=== PATIENT | male | born 1965 | race Caucasian/White ===

== ENCOUNTER 2020-12-15 16:42 | Emergency (ER) | payer OTHER ==
[2020-12-15 17:19] VITALS: TEMP 98.4
--- NOTE | 2020-12-15 18:19 | ED ---
SOB HPI - General Chief Complaint: Shortness of Breath Stated Complaint: SOB/body aches Time Seen by Provider: 12/15/20 17:49 Source: patient, RN notes reviewed Mode of arrival: ambulatory Limitations: no limitations - History of Present Illness Initial Comments: Patient is a 55-year-old male with history of heart failure, COPD, hypertension, cardiomyopathy, presenting to emergency Department with complaints of shortness of breath, chills and body aches that started 5 days ago. He states he was feeling better over the last couple days but then went back to work today and the chills and shortness of breath started back up about 3 PM so he finally came in for evaluation. About 6 weeks ago, he was hospitalized in [place] for RSV, diagnosed with mild COPD. He was in every day smoker for the past 40 years, quit in September. He was started on inhalers and when necessary nebulizer treatment secondary to the diagnosis of COPD. She recently received his pneumonia and influenza vaccines, he has been vaccinated against Covid as well. He denies any abdominal pain, no nausea or vomiting, no diarrhea. He states his appetite has been on the lower side. He denies any chest pain. Patient has no further complaints at this time. Upon arrival to the ER, his vitals are stable. - Related Data Previous Rx's Medication Instructions Recorded Azithromycin [Zithromax Z-pack (6 0 mg PO DIRECTED #6 tab 12/15/20 tabs)] predniSONE [Deltasone] 20 mg PO DAILY 5 Days #5 tab 12/15/20 Allergies Allergy/AdvReac Type Severity Reaction Status Date / Time acetaminophen [From Percocet] Allergy Unknown Verified 12/15/20 17:20 azithromycin Allergy Unknown Verified 12/15/20 17:20 erythromycin base Allergy Unknown Verified 12/15/20 17:20 oxycodone [From Percocet] Allergy Unknown Verified 12/15/20 17:20 Review of Systems ROS Statement: Those systems with pertinent positive or pertinent negative responses have been documented in the HPI. ROS Other: All systems not noted in ROS Statement are negative. Past Medical History Past Medical History: Heart Failure, COPD, Hyperlipidemia, Hypertension Additional Past Medical History / Comment(s): cardiomyopathy History of Any Multi-Drug Resistant Organisms: None Reported Past Surgical History: No Surgical Hx Reported Past Psychological History: Depression Smoking Status: Former smoker Past Alcohol Use History: Daily Past Drug Use History: None Reported General Exam - General Exam Comments Initial Comments: GENERAL: Patient is well-developed and well-nourished. Patient is nontoxic and in no acute distress. HEAD: Atraumatic, normocephalic. EYES: Pupils equal round and reactive to light, extraocular movements intact, sclera anicteric, conjunctiva are normal. Eyelids were unremarkable. ENT: TMs normal, nares patent, oropharynx clear without exudates. Moist mucous membranes. NECK: Normal range of motion, supple without lymphadenopathy or JVD. LUNGS: Unlabored respirations at rest, mildly labored with exam and questioning.. Breath sounds clear to auscultation bilaterally and equal. No wheezes rales or rhonchi. HEART: Regular rate and rhythm without murmurs, rubs or gallops. ABDOMEN: Soft, nontender, normoactive bowel sounds. No guarding, no rebound. No masses appreciated. : Deferred MUSCULOSKELETAL: Normal extremities with adequate strength and normal range of motion, no pitting or edema. No clubbing or cyanosis. NEUROLOGICAL: Patient is alert and oriented x 3. Motor and sensory are also intact. Cranial nerves II through XII grossly intact. Symmetrical smile. Normal speech, normal gait. PSYCH: Normal mood, normal affect. SKIN: Warm, Dry, normal turgor, no rashes or lesions noted. Limitations: no limitations Course Vital Signs 12/15/20 12/15/20 12/15/20 17:12 18:33 19:52 Temperature 98.4 F Pulse Rate 81 79 83 Respiratory 24 18 18 Rate Blood Pressure 133/79 145/92 O2 Sat by Pulse 100 97 98 Oximetry Medical Decision Making - Medical Decision Making Patient is a 55-year-old gentleman with history of COPD, heart failure, cardiomyopathy presenting with shortness of breath, body aches and chills over the past few days. His vitals are stable here, no chest pain today. His EKG shows a normal sinus rhythm with hypertrophy. Labs are stable including a nor mal white count, stable hemoglobin, troponin is negative, BNP is 99, kidney function is 1.37, swabs are all negative for influenza, RSV, covid. Chest XR is normal. These findings with the patient. This is most likely viral in nature. I will give him a course of steroids, also given a Z-Manolo as symptoms persist, worsening fever, he can start the antibiotics. He is agreeable as planned care. He will follow up with his primary care. Return parameters were discussed with him and he verbalized understanding. Case discussed with Dr. Conner. - Lab Data Result diagrams: 12/15/20 18:12 12/15/20 18:12 Lab Results 12/15/20 12/15/20 12/15/20 Range/Units 18:12 18:12 18:12 WBC 11.4 H (3.8-10.6) k/uL RBC 4.06 L (4.30-5.90) m/uL Hgb 13.0 (13.0-17.5) gm/dL Hct 39.2 (39.0-53.0) % MCV 96.7 (80.0-100.0) fL MCH 32.0 (25.0-35.0) pg MCHC 33.1 (31.0-37.0) g/dL RDW 12.1 (11.5-15.5) % Plt Count 274 (150-450) k/uL MPV 8.7 PT 10.2 (9.0-12.0) sec INR 0.9 (<1.2) APTT 25.7 (22.0-30.0) sec Sodium 137 (137-145) mmol/L Potassium 4.4 (3.5-5.1) mmol/L Chloride 104 (98-107) mmol/L Carbon Dioxide 21 L (22-30) mmol/L Anion Gap 12 mmol/L BUN 20 (9-20) mg/dL Creatinine 1.37 H (0.66-1.25) mg/dL Est GFR (CKD-EPI)AfAm 67 (>60 ml/min/1.73 sqM) Est GFR (CKD-EPI)NonAf 58 (>60 ml/min/1.73 sqM) Glucose 98 (74-99) mg/dL Calcium 10.0 (8.4-10.2) mg/dL Total Bilirubin 0.9 (0.2-1.3) mg/dL AST 36 (17-59) U/L ALT 30 (4-49) U/L Alkaline Phosphatase 79 (38-126) U/L Troponin I (0.000-0.034) ng/mL NT-Pro-B Natriuret Pep pg/mL Total Protein 7.5 (6.3-8.2) g/dL Albumin 4.3 (3.5-5.0) g/dL Influenza Type A (PCR) (Not Detectd) Influenza Type B (PCR) (Not Detectd) RSV (PCR) (Not Detectd) SARS-CoV-2 (PCR) (Not Detectd) 12/15/20 12/15/20 12/15/20 Range/Units 18:12 18:12 18:12 WBC (3.8-10.6) k/uL RBC (4.30-5.90) m/uL Hgb (13.0-17.5) gm/dL Hct (39.0-53.0) % MCV (80.0-100.0) fL MCH (25.0-35.0) pg MCHC (31.0-37.0) g/dL RDW (11.5-15.5) % Plt Count (150-450) k/uL MPV PT (9.0-12.0) sec INR (<1.2) APTT (22.0-30.0) sec Sodium (137-145) mmol/L Potassium (3.5-5.1) mmol/L Chloride (98-107) mmol/L Carbon Dioxide (22-30) mmol/L Anion Gap mmol/L BUN (9-20) mg/dL Creatinine (0.66-1.25) mg/dL Est GFR (CKD-EPI)AfAm (>60 ml/min/1.73 sqM) Est GFR (CKD-EPI)NonAf (>60 ml/min/1.73 sqM) Glucose (74-99) mg/dL Calcium (8.4-10.2) mg/dL Total Bilirubin (0.2-1.3) mg/dL AST (17-59) U/L ALT (4-49) U/L Alkaline Phosphatase (38-126) U/L Troponin I <0.012 (0.000-0.034) ng/mL NT-Pro-B Natriuret Pep 99 pg/mL Total Protein (6.3-8.2) g/dL Albumin (3.5-5.0) g/dL Influenza Type A (PCR) Not Detected (Not Detectd) Influenza Type B (PCR) Not Detected (Not Detectd) RSV (PCR) Not Detected (Not Detectd) SARS-CoV-2 (PCR) Not Detected (Not Detectd) - EKG Data EKG Comments: Normal sinus rhythm, left ventricular hypertrophy with repolarization abnormality, no signs of acute ST segment elevation. Ventricular rate 76, TX interval 170, QT 372. No previous to compare to. Disposition Clinical Impression: Viral respiratory illness Disposition: HOME SELF-CARE Condition: Stable Instructions (If sedation given, give patient instructions): Viral Syndrome (ED) Additional Instructions: Please return to the Emergency Department if symptoms worsen or any other c oncerns. Take steroids/antibiotics as prescribed. Use inhalers and nebulizers as already prescribed. Increase your fluid intake. Please follow-up with your primary care physician. Prescriptions: predniSONE [Deltasone] 20 mg PO DAILY 5 Days #5 tab Azithromycin [Zithromax Z-pack (6 tabs)] 0 mg PO DIRECTED #6 tab Is patient prescribed a controlled substance at d/c from ED?: No Referrals: Nonstaff,Physician [Primary Care Provider] - 1-2 days Time of Disposition: 19:06
[2020-12-15 18:20] LABS: HCT 39.2 % (39.0-53.0); MCHC 33.1 g/dL (31.0-37.0); MCV 96.7 fL (80.0-100.0); Mean Platelet Volume 8.7; Platelet Count 274 k/uL (150-450); RBC 4.06 m/uL (4.30-5.90); RDW 12.1 % (11.5-15.5); WBC 11.4 k/uL (3.8-10.6)
--- NOTE | 2020-12-15 18:27 | XR ---
EXAMINATION TYPE: XR chest 2V DATE OF EXAM: 12/15/2020 COMPARISON: NONE HISTORY: Short of breath TECHNIQUE: 2 views FINDINGS: Heart and mediastinum are normal. Lungs are clear. Diaphragm is normal. Bony thorax appears normal. IMPRESSION: Normal chest.
[2020-12-15 18:28] LABS: Albumin 4.3 g/dL (3.5-5.0); Potassium 4.4 mmol/L (3.5-5.1); Total Bilirubin 0.9 mg/dL (0.2-1.3); Total Protein 7.5 g/dL (6.3-8.2)
[2020-12-15 18:32] LABS: INR 0.9 (<1.2); Partial Thromboplastin Time 25.7 sec (22.0-30.0); Prothrombin Time 10.2 sec (9.0-12.0)
[2020-12-15 18:34] VITALS: RESP 18
[2020-12-15] MEDS ORDERED: SODIUM CHLORIDE 0.9% 500 ML 500 ML IV STA (18:57)
[2020-12-15 19:54] VITALS: BP 145/92; PULSE 83
== END 2020-12-15 19:54 | disposition home or self-care (01) ==
LOC: EC 16:42
DX: B34.9 Viral infection, unspecified (principal); I11.0 Hypertensive heart disease with heart failure; I50.9 Heart failure, unspecified; J44.9 Chronic obstructive pulmonary disease, unspecified; E78.5 Hyperlipidemia, unspecified; I42.9 Cardiomyopathy, unspecified; F32.9 Major depressive disorder, single episode, unspecified; Z88.1 Allergy status to other antibiotic agents; Z88.5 Allergy status to narcotic agent; Z87.891 Personal history of nicotine dependence; Z20.822 Contact with and (suspected) exposure to COVID-19
CPT/HCPCS: 36415; 71046; 80053; 83880; 84484; 85027; 85610; 85730; 87636; 93005; 99285

== ENCOUNTER 2020-12-21 08:08 | Inpatient (IN) | payer OTHER ==
[2020-12-21] MEDS ORDERED: ASPIRIN 81 MG PO STA (08:21)
[2020-12-21] MEDS ORDERED: NITROGLYCERIN OINT 1 INCH/GM PACKET TOPICAL STA (08:21)
[2020-12-21] MEDS ORDERED: NITROGLYCERIN SL TABS 0.4 MG TAB SUBLINGUAL STA (08:21)
[2020-12-21] MEDS ORDERED: SODIUM CHLORIDE 0.9% 500 ML 500 ML IV STA (08:21)
[2020-12-21] MEDS ORDERED: MORPHINE SULFATE 2 MG/ML SYRINGE IVP STA (08:21)
[2020-12-21] MEDS ORDERED: NITROGLYCERIN SL TABS 0.4 MG TAB SUBLINGUAL PRN (08:24)
[2020-12-21] MEDS ORDERED: LORazepam 2 MG/ML INJ IV STA (08:25)
--- NOTE | 2020-12-21 08:28 | ED ---
General Adult HPI - General Chief complaint: Chest Pain Stated complaint: chest pain Time Seen by Provider: 12/21/20 08:15 Source: patient, RN notes reviewed, old records reviewed Mode of arrival: wheelchair Limitations: no limitations - History of Present Illness Initial comments: This is a 55-year-old male who presents emergency pertinent past medical history significant for cardiomyopathy hypertension high cholesterol and recently quit smoking. Patient comes in stating 5 AM this morning he was having severe left- sided chest pain. Patient denies any radiation. Patient states he is somewhat short of breath per patient denies any diaphoretic episodes. Patient states the pain never goes away but it does get worse and get better. Patient denies any nausea. Patient denies abdominal pain patient denies any vomiting. Patient denies any recent fevers or chills per patient states he does have an upper respiratory infection recently and he was seen in emergency department. Patient states she was negative for COVID. - Related Data Home Medications Medication Instructions Recorded Confirmed Albuterol Inhaler [Ventolin Hfa 2 puff INHALATION RT-Q4H PRN 12/21/20 12/21/20 Inhaler] Atorvastatin [Lipitor] 80 mg PO DAILY 12/21/20 12/21/20 Budesonide/Formoterol Fumarate 2 puff INHALATION RT-BID 12/21/20 12/21/20 [Symbicort 160-4.5 Mcg Inhaler] Carvedilol [Coreg] 25 mg PO BID 12/21/20 12/21/20 Furosemide [Lasix] 20 mg PO DAILY 12/21/20 12/21/20 Ibuprofen [Motrin] 800 mg PO AC-TID 12/21/20 12/21/20 Ipratropium-Albuterol Nebulize 1.5 ml INHALATION RT-QID 12/21/20 12/21/20 [Duoneb 0.5 mg-3 mg/3 ml Soln] Valsartan [Diovan] 80 mg PO DAILY 12/21/20 12/21/20 buPROPion SR [Wellbutrin SR] 150 mg PO BID 12/21/20 12/21/20 Allergies Allergy/AdvReac Type Severity Reaction Status Date / Time acetaminophen [From Percocet] Allergy Unknown Verified 12/21/20 08:42 azithromycin Allergy Unknown Verified 12/21/20 08:42 erythromycin base Allergy Unknown Verified 12/21/20 08:42 oxycodone [From Percocet] Allergy Unknown Verified 12/21/20 08:42 Review of Systems ROS Statement: Those systems with pertinent positive or pertinent negative responses have been documented in the HPI. ROS Other: All systems not noted in ROS Statement are negative. Past Medical History Past Medical History: Heart Failure, COPD, Hyperlipidemia, Hypertension Additional Past Medical History / Comment(s): cardiomyopathy History of Any Multi-Drug Resistant Organisms: None Reported Past Surgical History: No Surgical Hx Reported Past Psychological History: Depression Smoking Status: Former smoker Past Alcohol Use History: Daily Past Drug Use History: None Reported General Exam - General Exam Comments Initial Comments: GENERAL: Patient is well-developed and well-nourished. Patient is nontoxic and well- hydrated and is in moderate distress. ENT: Neck is soft and supple. No significant lymphadenopathy is noted. Oropharynx is clear. Moist mucous membranes. Neck has full range of motion without eliciting any pain. EYES: The sclera were anicteric and conjunctiva were pink and moist. Extraocular movements were intact and pupils were equal round and reactive to light. Eyelids were unremarkable. PULMONARY: Unlabored respirations. Good breath sounds bilaterally. No audible rales rhonchi or wheezing was noted. CARDIOVASCULAR: There is a regular rate and rhythm without any murmurs gallops or rubs. ABDOMEN: Soft and nontender with normal bowel sounds. SKIN: Skin is clear with no lesions or rashes and otherwise unremarkable. NEUROLOGIC: Patient is alert and oriented x3. Cranial nerves II through XII are grossly intact. Motor and sensory are also intact. Normal speech, volume and content. Symmetrical smile. MUSCULOSKELETAL: Normal extremities with adequate strength and full range of motion. No lower extremity swelling or edema. No calf tenderness. LYMPHATICS: No significant lymphadenopathy is noted PSYCHIATRIC: Normal psychiatric evaluation. Limitations: no limitations Course Vital Signs 12/21/20 12/21/20 12/21/20 08:14 08:55 08:57 Temperature 98.0 F Pulse Rate 74 83 95 Respiratory 18 20 20 Rate Blood Pressure 135/84 143/84 143/79 O2 Sat by Pulse 95 95 95 Oximetry 12/21/20 09:10 Temperature Pulse Rate 79 Respiratory 20 Rate Blood Pressure 106/72 O2 Sat by Pulse 95 Oximetry Medical Decision Making - Medical Decision Making EKG shows normal sinus rhythm at 73 bpm [place] interval 160 QRS is under QT interval 370 QTC is 416. Patient's EKG shows some ST segment elevation in the anterior leads V1 and V2 and V3. Patient has T-wave abnormalities in the precordial leads V4 V5 and V6 as well as inferior leads which were also seen on previous EKG. A STEMI overhead was called. Patient received 1 mg of Ativan and nitroglycerin and aspirin immediately upon arrival in the emergency department. I called a STEMI overhead and I spoke with Dr. Brownlee he will come down and see the patient emergency department. New. Chest shows no acute abnormality. Dr. Brownlee came down and saw the patient and we agreed that the patient probably needed to get a CT of his aorta to rule out dissection. CT was done and showed no dissection. CT did show possibility of a pulmonary abscess in the right lower lung. Patient was taken to the [facility] immediately until this time there was no heparin given secondary to the fact that we had to rule out dissection. I spoke with [facility] hospitalist accept the patient admitted the patient to [facility]. I consult pulmonary and I started the patient on antibiotics. - Lab Data Result diagrams: 12/21/20 08:27 12/21/20 08:27 Lab Results 12/21/20 12/21/20 12/21/20 Range/Units 08:27 08:27 08:27 WBC 14.7 H (3.8-10.6) k/uL RBC 3.88 L (4.30-5.90) m/uL Hgb 12.1 L (13.0-17.5) gm/dL Hct 38.5 L (39.0-53.0) % MCV 99.2 (80.0-100.0) fL MCH 31.1 (25.0-35.0) pg MCHC 31.4 (31.0-37.0) g/dL RDW 12.5 (11.5-15.5) % Plt Count 380 (150-450) k/uL MPV 7.8 Neutrophils % 85 % Lymphocytes % 10 % Monocytes % 3 % Eosinophils % 1 % Basophils % 0 % Neutrophils # 12.5 H (1.3-7.7) k/uL Lymphocytes # 1.5 (1.0-4.8) k/uL Monocytes # 0.4 (0-1.0) k/uL Eosinophils # 0.2 (0-0.7) k/uL Basophils # 0.0 (0-0.2) k/uL Sodium 142 (137-145) mmol/L Potassium 4.0 (3.5-5.1) mmol/L Chloride 102 (98-107) mmol/L Carbon Dioxide 29 (22-30) mmol/L Anion Gap 11 mmol/L BUN 21 H (9-20) mg/dL Creatinine 1.32 H (0.66-1.25) mg/dL Est GFR (CKD-EPI)AfAm 71 (>60 ml/min/1.73 sqM) Est GFR (CKD-EPI)NonAf 61 (>60 ml/min/1.73 sqM) Glucose 134 H (74-99) mg/dL Calcium 9.7 (8.4-10.2) mg/dL Magnesium 2.0 (1.6-2.3) mg/dL Total Bilirubin 0.8 (0.2-1.3) mg/dL AST 181 H (17-59) U/L ALT 225 H (4-49) U/L Alkaline Phosphatase 87 (38-126) U/L Troponin I <0.012 (0.000-0.034) ng/mL NT-Pro-B Natriuret Pep pg/mL Total Protein 6.6 (6.3-8.2) g/dL Albumin 3.4 L (3.5-5.0) g/dL 12/21/20 Range/Units 08:27 WBC (3.8-10.6) k/uL RBC (4.30-5.90) m/uL Hgb (13.0-17.5) gm/dL Hct (39.0-53.0) % MCV (80.0-100.0) fL MCH (25.0-35.0) pg MCHC (31.0-37.0) g/dL RDW (11.5-15.5) % Plt Count (150-450) k/uL MPV Neutrophils % % Lymphocytes % % Monocytes % % Eosinophils % % Basophils % % Neutrophils # (1.3-7.7) k/uL Lymphocytes # (1.0-4.8) k/uL Monocytes # (0-1.0) k/uL Eosinophils # (0-0.7) k/uL Basophils # (0-0.2) k/uL Sodium (137-145) mmol/L Potassium (3.5-5.1) mmol/L Chloride (98-107) mmol/L Carbon Dioxide (22-30) mmol/L Anion Gap mmol/L BUN (9-20) mg/dL Creatinine (0.66-1.25) mg/dL Est GFR (CKD-EPI)AfAm (>60 ml/min/1.73 sqM) Est GFR (CKD-EPI)NonAf (>60 ml/min/1.73 sqM) Glucose (74-99) mg/dL Calcium (8.4-10.2) mg/dL Magnesium (1.6-2.3) mg/dL Total Bilirubin (0.2-1.3) mg/dL AST (17-59) U/L ALT (4-49) U/L Alkaline Phosphatase (38-126) U/L Troponin I (0.000-0.034) ng/mL NT-Pro-B Natriuret Pep 475 pg/mL Total Protein (6.3-8.2) g/dL Albumin (3.5-5.0) g/dL Critical Care Time Critical Care Time: Yes Total Critical Care Time: 40 Disposition Clinical Impression: ST elevation myocardial infarction (STEMI), Pulmonary abscess Disposition: ADMITTED IP TO THIS [facility] Time of Disposition: 09:26
[2020-12-21 08:35] LABS: Basophils % (A) 0 %; Eosinophils # (A) 0.2 k/uL (0-0.7); Eosinophils % (A) 1 %; HCT 38.5 % (39.0-53.0); HGB 12.1 gm/dL (13.0-17.5); Lymphocytes # (A) 1.5 k/uL (1.0-4.8); Lymphocytes % (A) 10 %; MCH 31.1 pg (25.0-35.0); MCHC 31.4 g/dL (31.0-37.0); MCV 99.2 fL (80.0-100.0); Mean Platelet Volume 7.8; Monocytes # (A) 0.4 k/uL (0-1.0); Monocytes % (A) 3 %; Neutrophils # (A) 12.5 k/uL (1.3-7.7); Neutrophils % (A) 85 %; Platelet Count 380 k/uL (150-450); RBC 3.88 m/uL (4.30-5.90); RDW 12.5 % (11.5-15.5); WBC 14.7 k/uL (3.8-10.6)
--- NOTE | 2020-12-21 08:35 | XR ---
EXAMINATION TYPE: XR chest 1V DATE OF EXAM: 12/21/2020 COMPARISON: Chest x-ray December 15, 2020 HISTORY: Chest pain. TECHNIQUE: Single AP portable frontal upright view of the chest is obtained. FINDINGS: There is no focal air space opacity, pleural effusion, or pneumothorax seen. The cardiac silhouette size is mildly enlarged currently. New Mild central interstitial edema. The osseous structures are intact. IMPRESSION: New Mild cardiomegaly with mild central vascular congestion.
[2020-12-21 08:54] LABS: Albumin 3.4 g/dL (3.5-5.0); Calcium 9.7 mg/dL (8.4-10.2); Total Bilirubin 0.8 mg/dL (0.2-1.3); Total Protein 6.6 g/dL (6.3-8.2)
[2020-12-21 08:55] LABS: Partial Thromboplastin Time 22.6 sec (22.0-30.0)
[2020-12-21] MEDS ORDERED: LIDOCAINE 1% INJ 10MG/ML (20 ML MDV) ONE ×2 (09:03→09:50)
[2020-12-21] MEDS ORDERED: VERAPAMIL 2.5 MG/ML 2 ML AMP ONE (09:03)
--- NOTE | 2020-12-21 09:24 | CT ---
EXAMINATION TYPE: CT angio thor/abd pel aorta DATE OF EXAM: 12/21/2020 COMPARISON: None. HISTORY: Chest pain rule out dissection CT DLP: 1207 mGycm. Automated Exposure Control for Dose Reduction was Utilized. CONTRAST: CTA scan of the thorax, abdomen and pelvis is performed without and with IV Contrast, patient injecte d with 100 ml mL of Isovue 370. Three-D reconstructed images created on a independent workstation and reviewed. FINDINGS: VASCULAR: Satisfactory enhancement of the central pulmonary arteries. Aneurysm at the aortic root up to 4.0 cm coronal image 48. Ascending aortic aneurysm up to 4.1 cm axial image 37. Three-vessel origi n from aortic arch. No significant plaque or stenosis. Patent celiac artery and SMA along with single bilateral renal arteries. Patent NATACHA. No significant plaque or stenosis. Patent iliac and femoral br anches bilaterally without significant plaque or stenosis. No AAA. No linear hypodensity to suggest d issection. LUNGS: Tiny left pleural effusion. There is small right pleural effusion. In the medial right lower l obe there is lesion with central low density or fluid and foci of air that has surrounding hyperdensi ty suspect thick-walled measuring 6.3 x 3.3 cm suspicious for intrapulmonary abscess MEDIASTINUM: There are prominent reactive right hilar lymph node and subcarinal lymph node. For refer ences 2.6 x 1.1 cm subcarinal lymph node axial image 39. Small pericardial effusion is seen anterior inferior aspect axial image 66. Cardiomegaly is present. Mild to moderate concentric left ventricula r hypertrophy. Moderate right greater than left biatrial dilatation. Question some focal narrowing at RCA origin axial image 44 corresponding to sagittal image 76. OTHER: Symmetric skin thickening in the bilateral axilla with prominent but anomaly subcentimeter nohelia ateral axillary lymph nodes. There is however slightly enlarged 1.5 x 1.2 cm right axillary lymph nod e axial image 16 noted LIVER/GB: No significant abnormality is appreciated. PANCREAS: No significant abnormality is seen. SPLEEN: No significant abnormality is seen. ADRENALS: No significant abnormality is seen. KIDNEYS: No significant abnormality is seen. BOWEL: Appendix within normal limits from base of cecum. GENITAL ORGANS: Enlarged prostate consistent with BPH. LYMPH NODES: No greater than 1cm abdominal or pelvic lymph nodes are appreciated. OSSEOUS STRUCTURES: Spine is straightened with mild to moderate multilevel spurring. OTHER: Moderate to large-sized inguinal hernias bilaterally, left contains fat, and right contains so me mesenteric vessels and inferiorly there is small fluid collection. There are small left greater th an right bilateral scrotal fluid collection or hydrocele seen inferior to this. IMPRESSION: 1. No thoracic aortic dissection. Ascending aortic aneurysm up to 4.1 cm. No suspicious ill-defined m ediastinal fluid to suggest aneurysm rupture or leak. 2. Cardiomegaly with small to tiny right greater than left pleural effusions. Correlate for CHF exace rbation. 3. There appears to be focal stenosis at origin of right coronary artery. Consider direct catheter an giogram to further evaluate. 4. There is 6.3 cm lesion in the medial right lower lobe, suspected pulmonary abscess. Correlate clin ically. 5. Abnormality in the bilateral axilla as detailed above, correlate clinically. Does patient have yasemin e underlying dermatologic process or syndrome.
[2020-12-21] MEDS ORDERED: PIPERACILLIN-TAZOBACTAM 3.375 GM in SODIUM CHLORIDE 0.9% 100 ML IVPB STA (09:33)
[2020-12-21] MEDS ORDERED: VANCOMYCIN IV PER PHARMACY 1 EACH MISC MISCELLANE PRN (09:34)
[2020-12-21] MEDS: MIDAZOLAM 2 MG/2 ML VIAL IVP ONE ×2 (09:38→09:57)
[2020-12-21] MEDS ORDERED: IV FLUID CONTINUATION 1,000 ML IV ONE (09:39)
[2020-12-21] MEDS ORDERED: SODIUM CHLORIDE 0.9% 1,000 ML IV ONE (09:39)
[2020-12-21] MEDS ORDERED: LIDOCAINE 1% INJ 10MG/ML (20 ML MDV) SQ ONE (09:39)
[2020-12-21] MEDS: VERAPAMIL SYRINGE (5 MG/10 ML) INTRAARTER ONE ×2 (09:54→10:11)
[2020-12-21] MEDS ORDERED: HEPARIN SODIUM 1,000 UN/ML (10ML VL) ONE (09:54)
[2020-12-21] MEDS ORDERED: HEPARIN SODIUM 1,000 UN/ML (10ML VL) IV ONE ×3 (09:57→17:07)
[2020-12-21] MEDS ORDERED: IOPAMIDOL-370 100ML BTL INJ ONE (10:10)
[2020-12-21] MEDS ORDERED: RX INFO: IV CONTRAST WAS GIVEN 1 EACH MISC MISCELLANE PRN (10:21)
[2020-12-21] MEDS ORDERED: ALBUTEROL HFA INHALER INHALATION PRN (10:24)
[2020-12-21] MEDS ORDERED: SODIUM CHLORIDE 0.9% 1,000 ML IV SCH (10:30)
[2020-12-21] MEDS: VANCOMYCIN 1,500 MG in SODIUM CHLORIDE 0.9% 250 ML IVPB SCH ×2 (11:43→21:53)
[2020-12-21] MEDS: MORPHINE SULFATE 2 MG/ML SYRINGE IVP PRN ×3 (11:43→20:37)
--- NOTE | 2020-12-21 11:44 | P.CNPUL ---
History of Present Illness Consult date: 12/21/20 Reason for consult: dyspnea, abnormal CXR/CT History of present illness: 55-year-old male patient is presenting today with extensive right-sided chest wall pain radiating to his back which has some pleuritic in nature. The patient's had a voltage criteria of LVH on his EKG. He was taken to catheterization and the cardiac catheterization do not to be within normal limits. A CT angiogram of the chest and the thoracic aorta was done and the CT angiogram showed the possibility of a right lower lobe lung abscess measuring 6.3 cm in size in addition to a right-sided pleural effusion which was small. The ascending aorta was measuring 4.1 cm in size. The patient has cardiomegaly. Pulmonary consultation was requested accordingly. Currently is on oxygen on 2 L. Is quite uncomfortable and is having pain along his lites side of the chest and he is unable to take a deep breath. White cell count of 14.7. D-dimer is at 2.34. Creatinine is at 1.3. Troponins are negative. ProBNP level is at 475. Noted the patient was in the emergency department on 12/15/2020. At that time he came in with five-day history of shortness of breath and chills and body aches. He was seen by the emergency department staff and a chest x-ray was given at that time on 12/15/2020 of the chest x-ray showed no significant acute abnormality. There was a suspicious right basilar infiltrate. At that point, the patient was given Zithromax and the patient was given a 5 day course of prednisone 20 mg and he was discharged home. Over the past week, the patient continued to be symptomatic and short of breath and he was not bringing up much sputum. No hemoptysis. His condition got worse and for that reason he presented to the hospital. Note that around 2 weeks ago, he was hospitalized in [place] for an RSV infection of the lung and COPD exacerbation. He is a chronic smoker and he has [id number] smoking history and he quit smoking in September 2020. He is known to have COPD. Other comorbid conditions include hypertension, hyperlipidemia, hypertensive cardiomyopathy and previous history of depression. No history of any substance abuse. Review of Systems Constitutional: Reports chills, Reports fatigue, Reports fever, Reports weakness Eyes: denies as per HPI, denies blurred vision, denies bulging eye, denies decreased vision, denies diplopia, denies discharge, denies dry eye, denies irritation, denies itching, denies pain, denies photophobia, denies loss of peripheral vision, denies loss of vision, denies tunnel vision/blind spots Ears: deny: decreased hearing, ear discharge, earache, tinnitus Ears, nose, mouth and throat: Reports as per HPI Breasts: absent: as per HPI, gynecomastia Cardiovascular: Reports chest pain, Reports decreased exercise tolerance, Reports dyspnea on exertion Respiratory: Reports dyspnea Gastrointestinal: Reports as per HPI Genitourinary: Reports as per HPI Musculoskeletal: Reports as per HPI Musculoskeletal: absent: ankle pain, ankle stiffness, ankle swelling, as per HPI, elbow pain, elbow stiffness, elbow swelling, foot pain, foot stiffness, foot swelling, hand pain, hand stiffness, hand swelling, hip pain, hip stiffness, hip swelling, knee pain, knee stiffness, knee swelling, shoulder pain, shoulder stiffness, shoulder swelling, wrist pain, wrist stiffness, wrist swelling Integumentary: Reports as per HPI Neurological: Reports as per HPI Psychiatric: Reports as per HPI Endocrine: Reports as per HPI Hematologic/Lymphatic: Reports as per HPI Allergic/Immunologic: Reports as per HPI Past Medical History Past Medical History: Heart Failure, COPD, Hyperlipidemia, Hypertension Additional Past Medical History / Comment(s): cardiomyopathy History of Any Multi-Drug Resistant Organisms: None Reported Past Surgical History: No Surgical Hx Reported Past Psychological History: Depression Smoking Status: Former smoker Past Alcohol Use History: Daily Past Drug Use History: None Reported Medications and Allergies Home Medications Medication Instructions Recorded Confirmed Type Albuterol Inhaler [Ventolin Hfa 2 puff INHALATION RT-Q4H PRN 12/21/20 12/21/20 History Inhaler] Atorvastatin [Lipitor] 80 mg PO DAILY 12/21/20 12/21/20 History Budesonide/Formoterol Fumarate 2 puff INHALATION RT-BID 12/21/20 12/21/20 History [Symbicort 160-4.5 Mcg Inhaler] Carvedilol [Coreg] 25 mg PO BID 12/21/20 12/21/20 History Furosemide [Lasix] 20 mg PO DAILY 12/21/20 12/21/20 History Ibuprofen [Motrin] 800 mg PO AC-TID 12/21/20 12/21/20 History Ipratropium-Albuterol Nebulize 1.5 ml INHALATION RT-QID 12/21/20 12/21/20 History [Duoneb 0.5 mg-3 mg/3 ml Soln] Valsartan [Diovan] 80 mg PO DAILY 12/21/20 12/21/20 History buPROPion SR [Wellbutrin SR] 150 mg PO BID 12/21/20 12/21/20 History Allergies Allergy/AdvReac Type Severity Reaction Status Date / Time acetaminophen [From Percocet] Allergy Unknown Verified 12/21/20 08:42 azithromycin Allergy Unknown Verified 12/21/20 08:42 erythromycin base Allergy Unknown Verified 12/21/20 08:42 oxycodone [From Percocet] Allergy Unknown Verified 12/21/20 08:42 Physical Exam Vitals: Vital Signs Temp Pulse Resp BP Pulse Ox 12/21/20 09:21 98.0 F 79 20 106/72 95 12/21/20 09:10 79 20 106/72 95 12/21/20 08:57 95 20 143/79 95 12/21/20 08:55 83 20 143/84 95 12/21/20 08:14 98.0 F 74 18 135/84 95 Intake and Output 12/20/20 12/21/20 12/21/20 22:59 06:59 14:59 Intake Total 100 Balance 100 Intake: IV 100 Other: Weight 86.183 kg Gen. appearance the patient is a mild degree of distress mainly complaining of pain and inability to take a deep breath. He is currently on 2 L of oxygen by nasal cannula. He is not using accessory muscles of breathing. Head exam was generally normal. There was no scleral icterus or corneal arcus. Mucous membranes were moist. Neck was supple and without jugular venous distension, thyromegaly, or carotid bruits. Carotids were easily palpable bilaterally. There was no adenopathy. Lungs sounds are diminished bilaterally as the patient is unable to take a full breath. There is some crackles in lung bases. No wheezing. Cardiac exam revealed the PMI to be normally situated and sized. The rhythm was regular and no extrasystoles were noted during several minutes of auscultation. The first and second heart sounds were normal and physiologic splitting of the second heart sound was noted. There were no murmurs, rubs, clicks, or gallops. Abdominal exam revealed normal bowel sounds. The abdomen was soft, non-tender, and without masses, organomegaly, or appreciable enlargement of the abdominal aorta. Extremities show adequate and symmetrical pulses. The patient's right radial access is within normal limits and the patient has no hematoma involved. Examination of the skin revealed no evidence of significant rashes, suspicious appearing nevi or other concerning lesions. Neurologically, the patient is awake and alert and the patient does not have any focal neurological deficit. Cranial nerves are essentially intact. Results - Laboratory Findings CBC and BMP: 12/21/20 08:27 12/21/20 08:27 PT/INR, D-dimer PT 11.0 sec (9.0-12.0) 12/21/20 08: INR 1.0 (<1.2) 12/21/20 08:27 D-Dimer 2.34 mg/L FEU (<0.60) H 12/21/20 08:27 Abnormal lab findings: Abnormal Labs 12/21/20 12/21/20 12/21/20 08:27 08:27 08:27 WBC 14.7 H RBC 3.88 L Hgb 12.1 L Hct 38.5 L Neutrophils # 12.5 H D-Dimer 2.34 H BUN 21 H Creatinine 1.32 H Glucose 134 H AST 181 H ALT 225 H Albumin 3.4 L - Diagnostic Findings Chest x-ray: image reviewed CT scan - chest: image reviewed Assessment and Plan Plan: 1 right lower lobe pneumonia pneumonia complicated by development of a right lung abscess and right-sided pleural effusion. The patient is having significant pleurisy affecting his ability to breathe. He is quite short of breath at this point in time. He has leukocytosis. He was an emergency department approximately 6 days ago and he was given a course of Z-Manolo and five- day course of prednisone. He is coming in worsening pain and shortness of breath. 2 acute hypoxic respiratory failure secondary to above 3 pleurisy and chest pain and shortness of breath secondary to above 4 leukocytosis 5 hypertensive cardiomyopathy 6 normal coronary angiogram 7 hyperlipidemia 8 COPD Plan Check blood cultures Obtain sputum Gram stain and culture Check pro calcitonin level covered the patient with accommodation Zosyn and vancomycin morphine for pain control provide the patient incentive spirometer IV fluids normal saline at rate of 75 mL an hour DuoNeb nebulized treatments around the clock We'll continue to follow.
[2020-12-21] MEDS: IPRATROPIUM-ALBUTEROL 3 ML NEB INHALATION SCH ×3 (11:56→20:32)
[2020-12-21] MEDS ORDERED: IPRATROPIUM-ALBUTEROL 3 ML NEB INHALATION SCH (12:00)
--- NOTE | 2020-12-21 13:03 | CONS ---
CONSULTATION This is a 55-year-old gentleman who came to the emergency room with severe chest pain radiating to the back. Apparently, the pain was of severe intensity and a STEMI alert was called because of ST elevation on the EKG. However, he was here about a week or so ago and EKG at that time also revealed LVH with repolarization changes but ST segments are more prominent at this time raising the possibility of ST-elevation OH. The patient has hypertension and also a cardiomyopathy, details of which are unavailable. He apparently had a cardiac cath in 2010 which was unremarkable according to the patient in [place]. He is comfortable at this time after receiving nitroglycerin and Ativan. Looking at the EKG of a week ago and now, the ST segments are certainly more prominent but patient's chest pain with radiation to the back raises the concern in the setting of hypertension of aortic dissection as well. I am recommending that we will perform CT angio of the chest to rule out dissection and if this is negative I will perform coronary angiography and intervention. I discussed this with the patient. He has history of hypertension and cardiomyopathy of unclear etiology. He smokes and drinks alcohol which he stopped in September of this year. PAST MEDICAL HISTORY: 1. Cardiomyopathy of unclear etiology. 2. Hypertension. 3. Smoking and COPD. 4. Hyperlipidemia. PHYSICAL EXAMINATION: On examination, blood pressure is 140/70, pulse rate is about 70 per minute. HEENT unremarkable. Fundus was not examined by me. Neck is supple. There is no JVD. I do not hear a carotid bruit HEART exam reveals S1, S2 heard normally but distantly. LUNGS reveal bilateral diminished air entry. ABDOMEN is soft, nontender. LOWER EXTREMITIES reveal diminished pulses. CENTRAL NERVOUS SYSTEM grossly no focal deficits. IMPRESSION: 1. Acute chest pain, rule out aortic dissection. 2. ST-segment elevation more prominent, rule out any acute ST-elevation OH. Seems that we should rule out the dissection first given his acute chest pain and radiation to the back of a crushing nature. 3. History of cardiomyopathy. 4. History of smoking and possible COPD but he has quit smoking in September. RECOMMENDATIONS: I would hold heparin, perform CT angio of the chest and if this is negative, perform coronary angiography. Discussed my thoughts in detail with the patient and will proceed with catheterization if CT angio is negative. Prognosis remains guarded. MMODL / IJN: [id number] /
--- NOTE | 2020-12-21 13:18 | CC ---
CARDIAC CATHETERIZATION REPORT DATE OF SERVICE: 12/21/2020 PROCEDURE: Left heart catheterization and coronary angiography. PERFORMED BY: Dr. Josiah Brownlee. SEDATION: Moderate conscious sedation time was 35 minutes. CLINICAL INFORMATION: Mr. 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 He lives in [place], [place] and he is here for a 4 month stent. He came into the hospital with severe chest pain, crushing in nature, on the right side and also midsternal radiating to the back. He has hypertension, cardiomyopathy, cardiac cath in 2010, which was unremarkable. His EKG showed ST-segment elevation, but on close observation, there was also a possibility of this could be an LVH with a repolarization changes. However, he had an old EKG about [address]- segment prominence was more evident and therefore we desired to take him to the labor relations manager. However, he had pain with radiation to the back and has history of hypertension and therefore a CT angio was performed which revealed no evidence of dissection, but there was abnormality in the right lung of probable abscess. Following clarification from CT angio with no evidence of dissection. I took him to the cardiac labor relations manager. PROCEDURE NOTE: Under local anesthesia and strict aseptic precautions, a 6-Tanzanian introducer was placed in the right radial artery. Using a JL3.5 and JR4 catheters, I performed coronary angiography and the same right catheter was used to check pressures in the LV. LV gram was not performed. The sheath was taken out and TR band applied as per protocol. The saturation of the fingers of the right hand was more than 94%. Patient tolerated procedure well without complications. CARDIAC CATHETERIZATION FINDINGS: The left ventricular end-diastolic pressure was about 10 mmHg without any gradient across the without any gradient across aortic valve. CORONARY ANGIOGRAPHY FINDINGS: RIGHT CORONARY ARTERY: The right coronary artery is nondominant vessel fair caliber, comes from posterior location, tortuous, minor irregularities. No significant disease. Distally it gives off 2 small branches. This is a nondominant vessel. The branches do not reach the crux. No significant disease in the nondominant RCA that come from the posterior location. LEFT MAIN CORONARY ARTERY: Very short vessel that immediately bifurcates into LAD and circumflex. LEFT ANTERIOR DESCENDING CORONARY ARTERY: Good caliber vessel, extends along the anterior wall. No significant disease in the LAD. Gives off septal and diagonal branches. Curves over the apex to supply the inferoapical portion of left ventricle. LAD has minor irregularities. No significant disease. I adjusted the catheter to get circumflex injection. This is a dominant vessel, has no significant disease. It gives off 2 branches and then distally divides into a posterolateral branch. The 2 obtuse marginals are free of significant disease. The distal portion continues as a PDA which is also free of significant disease. The proximal portion of the circumflex is quite large, almost measures 5 to 6 mm. Somewhat ectatic in the proximal portion, but no significant obstructive disease in the dominant circumflex. Left ventriculogram was not performed. FINAL IMPRESSION: This patient has a left dominant system. No significant disease in the RCA which is nondominant but distal branches have diffuse disease. 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 LAD has no significant disease. Normal filling pressures. No gradient. This patient has no significant obstructive CAD. I am recommending further evaluation from a pulmonary standpoint because of a lung abscess. We will also check LV function by echo tomorrow. We will resume most of his medications. Findings were discussed with the patient. I called the number provided by the patient for his in [facility], but I could not reach her. The patient was sent to the room in stable condition. MMODL / IJN: [id number] /
[2020-12-21] MEDS ORDERED: HEPARIN SODIUM 1,000 UN/ML (10ML VL) IV PRN (16:51)
[2020-12-21 17:35] LABS: Basophils # (A) 0.1 k/uL (0-0.2); Basophils % (A) 0 %; Eosinophils # (A) 0.2 k/uL (0-0.7); Eosinophils % (A) 1 %; HCT 37.2 % (39.0-53.0); HGB 11.7 gm/dL (13.0-17.5); Lymphocytes # (A) 0.6 k/uL (1.0-4.8); Lymphocytes % (A) 3 %; MCH 31.2 pg (25.0-35.0); MCHC 31.4 g/dL (31.0-37.0); MCV 99.5 fL (80.0-100.0); Monocytes # (A) 0.8 k/uL (0-1.0); Monocytes % (A) 4 %; Neutrophils # (A) 16.9 k/uL (1.3-7.7); Neutrophils % (A) 91 %; Platelet Count 351 k/uL (150-450); RBC 3.74 m/uL (4.30-5.90); RDW 12.7 % (11.5-15.5); WBC 18.7 k/uL (3.8-10.6)
[2020-12-21] MEDS: HEPARIN SOD,PORK IN 0.45% NACL 25,000 UNIT in 0.45% NACL 1 250ML.BAG IV SCH (17:38)
[2020-12-21] MEDS: carvediloL 12.5 MG TAB PO SCH (17:41)
[2020-12-21 17:44] LABS: Partial Thromboplastin Time 22.4 sec (22.0-30.0); Prothrombin Time 11.1 sec (9.0-12.0)
[2020-12-21 17:47] LABS: Calcium 8.9 mg/dL (8.4-10.2); Potassium 4.3 mmol/L (3.5-5.1)
[2020-12-21 17:53] LABS: Glucose,Whole Blood 119 mg/dL (75-99)
[2020-12-21 18:23] LABS: Urine Alcohol Negative (Negative); Urine Barbiturate Negative (Negative); Urine Cocaine Negative (Negative); Urine Methadone Negative (Negative); Urine Opiates Positive (Negative); Urine Phencyclidine Negative (Negative)
[2020-12-21] MEDS: CYCLOBENZAPRINE 10 MG TAB PO PRN (18:42)
--- NOTE | 2020-12-21 19:16 | P.HPIM ---
History of Present Illness H&P Date: 12/21/20 Chief Complaint: Chest pain 55-year-old male who presents emergency pertinent past medical history significant for cardiomyopathy hypertension high cholesterol and recently quit smoking. Patient comes in stating 5 AM this morning he was having severe left- sided chest pain. Patient denies any radiation. Patient states he is somewhat short of breath per patient denies any diaphoretic episodes. Patient states the pain never goes away but it does get worse and get better. Patient denies any nausea. Patient denies abdominal pain patient denies any vomiting. Patient d enies any recent fevers or chills per patient states he does have an upper respiratory infection recently and he was seen in emergency department. Patient states she was negative for COVID. CT of his aorta to rule out dissection. CT was done and showed no dissection. CT did show possibility of a pulmonary abscess in the right lower lung. EKG shows normal sinus rhythm at 73 bpm IA interval 160 QRS is under QT interval 370 QTC is 416. Patient's EKG shows some ST segment elevation in the anterior leads V1 and V2 and V3. Patient has T-wave abnormalities in the precordial leads V4 V5 and V6 as well as inferior leads which were also seen on previous EKG. A STEMI overhead was called. Patient received 1 mg of Ativan and nitroglycerin and aspirin immediately upon arrival in the emergency department. Patient was evaluated by cardiology in the ED and was taken to paving and surfacing labourer Review of Systems REVIEW OF SYSTEMS: CONSTITUTIONAL: No fever, no malaise, no fatigue. HEENT: No recent visual problems or hearing problems. Denied any sore throat. CARDIOVASCULAR: No chest pain, orthopnea, PND, no palpitations, no syncope. PULMONARY: No shortness of breath, no cough, no hemoptysis. GASTROINTESTINAL: No diarrhea, no nausea, no vomiting, no abdominal pain. NEUROLOGICAL: No headaches, no weakness, no numbness. HEMATOLOGICAL: Denies any bleeding or petechiae. GENITOURINARY: Denies any burning micturition, frequency, or urgency. MUSCULOSKELETAL/RHEUMATOLOGICAL: Denies any joint pain, swelling, or any muscle pain. ENDOCRINE: Denies any polyuria or polydipsia. The rest of the 14-point review of systems is negative. Past Medical History Past Medical History: Heart Failure, COPD, Hyperlipidemia, Hypertension Additional Past Medical History / Comment(s): cardiomyopathy History of Any Multi-Drug Resistant Organisms: None Reported Past Surgical History: No Surgical Hx Reported Past Psychological History: Depression Smoking Status: Former smoker Past Alcohol Use History: Daily Past Drug Use History: None Reported Medications and Allergies Home Medications Medication Instructions Recorded Confirmed Type Albuterol Inhaler [Ventolin Hfa 2 puff INHALATION RT-Q4H PRN 12/21/20 12/21/20 History Inhaler] Atorvastatin [Lipitor] 80 mg PO DAILY 12/21/20 12/21/20 History Budesonide/Formoterol Fumarate 2 puff INHALATION RT-BID 12/21/20 12/21/20 History [Symbicort 160-4.5 Mcg Inhaler] Carvedilol [Coreg] 25 mg PO BID 12/21/20 12/21/20 History Furosemide [Lasix] 20 mg PO DAILY 12/21/20 12/21/20 History Ibuprofen [Motrin] 800 mg PO AC-TID 12/21/20 12/21/20 History Ipratropium-Albuterol Nebulize 1.5 ml INHALATION RT-QID 12/21/20 12/21/20 H istory [Duoneb 0.5 mg-3 mg/3 ml Soln] Valsartan [Diovan] 80 mg PO DAILY 12/21/20 12/21/20 History buPROPion SR [Wellbutrin SR] 150 mg PO BID 12/21/20 12/21/20 History Allergies Allergy/AdvReac Type Severity Reaction Status Date / Time acetaminophen [From Percocet] Allergy Unknown Verified 12/21/20 08:42 azithromycin Allergy Unknown Verified 12/21/20 08:42 erythromycin base Allergy Unknown Verified 12/21/20 08:42 oxycodone [From Percocet] Allergy Unknown Verified 12/21/20 08:42 Physical Exam Vitals: Vital Signs Temp Pulse Resp BP Pulse Ox 12/21/20 09:21 98.0 F 79 20 106/72 95 12/21/20 09:10 79 20 106/72 95 12/21/20 08:57 95 20 143/79 95 12/21/20 08:55 83 20 143/84 95 12/21/20 08:14 98.0 F 74 18 135/84 95 Intake and Output 12/20/20 12/21/20 12/21/20 22:59 06:59 14:59 Intake Total 100 Balance 100 Intake: IV 100 Other: Weight 86.183 kg - Constitutional General appearance: Present: average body habitus, cooperative, no acute distress - EENT Eyes: Present: anicteric sclerae, EOMI, PERRLA, normal appearance ENT: Present: hearing grossly normal, normal oropharynx Ears: bilateral: normal - Neck Neck: Present: normal ROM. Absent: lymphadenopathy, rigidity, thyromegaly Carotids: negative: bruit present Thyroid: bilateral: normal size, negative: enlarged, nodule - Respiratory Respiratory: bilateral: CTA, negative: rales, rhonchi, wheezing - Cardiovascular Rhythm: regular Heart sounds: normal: S1, S2 Abnormal Heart Sounds: Absent: systolic murmur, diastolic murmur - Gastrointestinal General gastrointestinal: Present: normal bowel sounds, soft. Absent: distended, organomegaly, tenderness - Genitourinary Genitourinary Comment(s): deferred - Integumentary Integumentary: Present: normal turgor. Absent: jaundiced, rash, ulcer - Neurologic Neurologic: Present: CNII-XII intact. Absent: focal deficits - Musculoskeletal Musculoskeletal: Present: gait normal, strength equal bilaterally - Psychiatric Psychiatric: Present: A&O x's 3, appropriate affect, intact judgment & insight Results CBC & Chem 7: 12/21/20 17:16 12/21/20 17:16 Labs: Abnormal Lab Results - Last 24 Hours (Table) 12/21/20 12/21/20 12/21/20 Range/Units 08:27 08:27 08:27 WBC 14.7 H (3.8-10.6) k/uL RBC 3.88 L (4.30-5.90) m/uL Hgb 12.1 L (13.0-17.5) gm/dL Hct 38.5 L (39.0-53.0) % Neutrophils # 12.5 H (1.3-7.7) k/uL D-Dimer 2.34 H (<0.60) mg/L FEU BUN 21 H (9-20) mg/dL Creatinine 1.32 H (0.66-1.25) mg/dL Glucose 134 H (74-99) mg/dL AST 181 H (17-59) U/L ALT 225 H (4-49) U/L Albumin 3.4 L (3.5-5.0) g/dL Assessment and Plan Assessment: 1. EKG changes/possible STEMI; patient was taken to [facility]; did not reveal any significant obstructive CAD 2. Acute hypoxic respiratory failure; patient remains on O2 per nasal cannula; we will plan to wean as able 3. Right lower lobe pneumonia/right lung abscess; with right-sided pleural effusion; pulmonary is consulted and is recommending IV Zosyn and vancomycin 4. Chest pain likely pleuritic; significant pain due to pleurisy; patient has been started on IV morphine; we will add Toradol to alternate with morphine; continue with incentive spirometry; blood cultures and sputum cultures are obtained 5. Hypertension/hypertensive cardiomyopathy; Coreg 12.5 mg twice a day 6. Elevated d-dimer; we will start patient on IV heparin per PE protocol due to continued concerns about chest pain and elevated d-dimer; patient did have elevated BUN/creatinine and has had cardiac catheterization done this morning; we will repeat renal function and scheduled for VQ scan tomorrow if BUN/creatinine is worsened 7. Hyperlipidemia; Lipitor 40 mg by mouth daily at bedtime DVT prophylaxis; SCDs/IV heparin CODE STATUS; full code
[2020-12-21] MEDS: SYMBICORT 160-4.5 MCG INHALER INHALATION SCH (20:31)
[2020-12-21] MEDS: PIPERACILLIN-TAZOBACTAM 3.375 GM in SODIUM CHLORIDE 0.9% 100 ML IVPB SCH (20:55)
[2020-12-21] MEDS: buPROPion SR 150 MG TABLET.ER PO SCH (20:55)
[2020-12-21] MEDS ORDERED: HEPARIN SODIUM,PORCINE/PF 5,000 UNIT/0.5 ML SYRINGE SQ SCH (21:00)
[2020-12-21] MEDS ORDERED: carvediloL 12.5 MG TAB PO SCH (21:00)
[2020-12-21] MEDS: KETOROLAC 15 MG/ML 1 ML VIAL IVP PRN (21:53)
[2020-12-22] MEDS: PIPERACILLIN-TAZOBACTAM 3.375 GM in SODIUM CHLORIDE 0.9% 100 ML IVPB SCH ×3 (04:20→20:01)
[2020-12-22] MEDS: KETOROLAC 15 MG/ML 1 ML VIAL IVP PRN ×3 (04:21→20:02)
[2020-12-22] MEDS: carvediloL 12.5 MG TAB PO SCH ×2 (06:41→17:07)
[2020-12-22 07:37] LABS: Basophils % (A) 0 %; Eosinophils # (A) 0.1 k/uL (0-0.7); Eosinophils % (A) 1 %; HCT 36.9 % (39.0-53.0); HGB 11.9 gm/dL (13.0-17.5); Lymphocytes # (A) 0.9 k/uL (1.0-4.8); Lymphocytes % (A) 4 %; MCH 32.1 pg (25.0-35.0); MCHC 32.1 g/dL (31.0-37.0); MCV 99.9 fL (80.0-100.0); Mean Platelet Volume 8.8; Monocytes # (A) 0.9 k/uL (0-1.0); Monocytes % (A) 4 %; Neutrophils # (A) 22.1 k/uL (1.3-7.7); Neutrophils % (A) 91 %; Platelet Count 329 k/uL (150-450); RDW 12.7 % (11.5-15.5); WBC 24.2 k/uL (3.8-10.6)
[2020-12-22 07:48] LABS: INR 1.2 (<1.2); Prothrombin Time 12.7 sec (9.0-12.0)
[2020-12-22 07:52] LABS: African American GFR (CKD) >90 (>60 ml/min/1.73 sqM); Anion Gap 10 mmol/L; Blood Urea Nitrogen 17 mg/dL (9-20); Calcium 8.6 mg/dL (8.4-10.2); Carbon Dioxide 22 mmol/L (22-30); Chloride 100 mmol/L (98-107); Glucose 81 mg/dL (74-99); Non-African American GFR(CKD) 86 (>60 ml/min/1.73 sqM); Sodium 132 mmol/L (137-145)
[2020-12-22 07:56] LABS: Potassium 4.3 mmol/L (3.5-5.1)
[2020-12-22] MEDS: SYMBICORT 160-4.5 MCG INHALER INHALATION SCH ×2 (08:13→19:32)
[2020-12-22] MEDS: IPRATROPIUM-ALBUTEROL 3 ML NEB INHALATION SCH ×4 (08:13→19:32)
--- NOTE | 2020-12-22 08:58 | NM ---
EXAMINATION TYPE: NM pul vent and perfuse DATE OF EXAM: 12/22/2020 COMPARISON: CTA aorta from yesterday HISTORY: Chest pain and elevated d-dimer TECHNIQUE: Utilizing inhalation of 67.7 mCi Tc 99m DTPA aerosol and intravenous injection of 5.1 mCi of Tc 99m MAA, ventilation and perfusion images are acquired post injection in multiple projections. FINDINGS: There are some small matching areas of diminished radiotracer uptake throughout the right lung. Impro linda perfusion versus ventilation with more central clumping There is no evidence of mismatched defect s. IMPRESSION: Low probability for acute pulmonary embolism.
[2020-12-22] MEDS ORDERED: ATORVASTATIN 80 MG TAB PO SCH (09:00)
[2020-12-22] MEDS: ASPIRIN 81 MG PO SCH (09:09)
[2020-12-22] MEDS: HYDROmorphone 0.5 MG/0.5 ML SYRINGE IVP PRN ×3 (09:10→22:23)
[2020-12-22] MEDS: buPROPion SR 150 MG TABLET.ER PO SCH ×2 (09:10→20:02)
[2020-12-22] MEDS: ATORVASTATIN 20 MG TAB PO SCH (09:10)
[2020-12-22] MEDS: VALSARTAN 80 MG TAB PO SCH (09:11)
[2020-12-22] MEDS: HEPARIN SODIUM 1,000 UN/ML (10ML VL) IV PRN ×2 (09:23→17:08)
[2020-12-22] MEDS: VANCOMYCIN 1,500 MG in SODIUM CHLORIDE 0.9% 250 ML IVPB SCH ×2 (11:43→22:15)
--- NOTE | 2020-12-22 14:01 | P.CRDCN ---
History of Present Illness History of present illness: This is a 55-year-old male with a past medical history of hypertension, chronic nicotine dependence, COPD, hyperlipidemia. 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 Patient presents to the emergency department with chest pain, shortness of breath, chills, body aches. EKG revealed ST elevation more prominent than prior EKG, LVH with repolarization changes. Troponin negative 1. Thoracic CT revealed ascending aortic resume up to 5.1 cm, cardiomegaly small to tiny right pleural effusions, 6.3 cm lesion in the medial right lower lobe suspected pulmonary abscess. Patient underwent cardiac catheterization with Dr. Brownlee on 01/17/21 which revealed nonobstructive coronary artery disease. Patient seen and examined at bedside, no acute distress. Denies any further chest pain or shortness of breath. He underwent a VQ scan which revealed low probability for acute pulmonary embolism. Laboratory data reviewed WBC 24, hemoglobin 0.9, platelets 329, INR 1.2, sodium 132, potassium 4.3, BUN 17, serum creatinine 0.9. urine Tox positive for opiates, and benzodiazepines. Currently maintained on aspirin 81 mg daily, atorvastatin 20 mg daily, carvedilol 12.5 mg twice a day, IV heparin drip , valsartan 80 mg daily. Blood pressure 119/70, heart rate 83, afebrile, T-max saturations on 2 L nasal cannula GENERAL: Well-appearing, well-nourished and in no acute distress. NECK: Supple without JVD or thyromegaly. LUNGS: Breath sounds clear to auscultation bilaterally. Respiration equal and unlabored. No wheezes, rales or rhonchi. HEART: Regular rate and rhythm without murmurs, rubs or gallops. S1 and S2 heard. EXTREMITIES: Normal range of motion, no edema. No clubbing or cyanosis. Peripheral pulses intact. ASSESSMENT Chest pain Shortness of Breath ST segment elevation, more prominent rule out ST elevated [place] Nonobstructive coronary artery disease Former tobacco use COPD PLAN -2D echocardiogram pending -Ok to discontinue heparin drip from a cardiology perspective -Continue aspirin, atorvastatin, carvedilol, valsartan -If echocardiogram normal, no further changes from cardiology perspective, and recommend follow up with Dr. Brownlee Nurse Practitioner note has been reviewed, I agree with a documented findings and plan of care. Patient was seen and examined. Past Medical History Past Medical History: Heart Failure, COPD, Hyperlipidemia, Hypertension Additional Past Medical History / Comment(s): cardiomyopathy History of Any Multi-Drug Resistant Organisms: None Reported Past Surgical History: No Surgical Hx Reported Past Psychological History: Depression Smoking Status: Former smoker Past Alcohol Use History: Daily Past Drug Use History: None Reported Medications and Allergies Home Medications Medication Instructions Recorded Confirmed Type Albuterol Inhaler [Ventolin Hfa 2 puff INHALATION RT-Q4H PRN 12/21/20 12/21/20 History Inhaler] Atorvastatin [Lipitor] 80 mg PO DAILY 12/21/20 12/21/20 History Budesonide/Formoterol Fumarate 2 puff INHALATION RT-BID 12/21/20 12/21/20 History [Symbicort 160-4.5 Mcg Inhaler] Carvedilol [Coreg] 25 mg PO BID 12/21/20 12/21/20 History Furosemide [Lasix] 20 mg PO DAILY 12/21/20 12/21/20 History Ibuprofen [Motrin] 800 mg PO AC-TID 12/21/20 12/21/20 History Ipratropium-Albuterol Nebulize 1.5 ml INHALATION RT-QID 12/21/20 12/21/20 History [Duoneb 0.5 mg-3 mg/3 ml Soln] Valsartan [Diovan] 80 mg PO DAILY 12/21/20 12/21/20 History buPROPion SR [Wellbutrin SR] 150 mg PO BID 12/21/20 12/21/20 History Allergies Allergy/AdvReac Type Severity Reaction Status Date / Time acetaminophen [From Percocet] Allergy Unknown Verified 12/21/20 08:42 azithromycin Allergy Unknown Verified 12/21/20 08:42 erythromycin base Allergy Unknown Verified 12/21/20 08:42 oxycodone [From Percocet] Allergy Unknown Verified 12/21/20 08:42 Physical Exam Vitals: Vital Signs Temp Pulse Pulse Resp BP BP Pulse Ox 12/22/20 11:40 97.9 F 83 18 119/70 97 12/22/20 11:22 88 12/22/20 08:50 985 F H 85 32 H 169/91 99 12/22/20 06:00 98.0 F 82 18 137/77 97 12/22/20 04:00 89 22 161/82 98 12/22/20 02:00 22 12/22/20 00:00 98.7 F 92 22 131/73 96 12/21/20 22:45 98.7 F 92 22 131/73 96 12/21/20 20:00 98.2 F 91 22 131/76 96 12/21/20 15:43 99.6 F 88 30 H 131/81 99 12/21/20 15:38 90 12/21/20 15:28 88 12/21/20 14:45 84 135/77 98 Intake and Output 12/21/20 12/22/20 12/22/20 22:59 06:59 14:59 Intake Total 4000 72.978 98.652 Output Total 725 275 Balance 3275 -202.022 98.652 Intake: Intake, IV Titration 72.978 98.652 Amount Heparin Sod,Pork in 0.45% 72.978 98.652 NaCl 25,000 unit In 0.45 % NaCl 1 250ml.bag @ 11.6 UNITS/KG/HR 9.997 mls/hr IV .Q24H [facility] Rx#: [id number] Oral 4000 Output: Urine 725 275 Other: # Voids 1 1 Weight 99 kg Results 12/22/20 06:54 12/22/20 06:54 Coagulation 12/21/20 12/22/20 12/22/20 Range/Units 17:16 00:08 06:54 PT 11.1 12.7 H (9.0-12.0) sec APTT 22.4 38.5 H (22.0-30.0) sec 12/22/20 Range/Units 06:54 PT (9.0-12.0) sec APTT 35.7 H (22.0-30.0) sec CBC 12/21/20 12/22/20 Range/Units 17:16 06:54 WBC 18.7 H 24.2 H (3.8-10.6) k/uL RBC 3.74 L 3.70 L (4.30-5.90) m/uL Hgb 11.7 L 11.9 L (13.0-17.5) gm/dL Hct 37.2 L 36.9 L (39.0-53.0) % Plt Count 351 329 (150-450) k/uL Comprehensive Metabolic Panel 12/21/20 12/22/20 Range/Units 17:16 06:54 Sodium 135 L 132 L (137-145) mmol/L Potassium 4.3 4.3 (3.5-5.1) mmol/L Chloride 101 100 (98-107) mmol/L Carbon Dioxide 25 22 (22-30) mmol/L BUN 17 17 (9-20) mg/dL Creatinine 1.08 0.99 (0.66-1.25) mg/dL Glucose 124 H 81 (74-99) mg/dL Calcium 8.9 8.6 (8.4-10.2) mg/dL Current Medications Generic Name Dose Route Start Last Admin Trade Name Freq PRN Reason Stop Dose Admin Albuterol Sulfate 2 puff 12/21/20 10:24 Albuterol Hfa Inhaler INHALATION RT-Q4H PRN Shortness Of Breath Albuterol/Ipratropium 3 ml 12/21/20 12:00 12/22/20 11:20 Ipratropium-Albuterol 3 Ml Neb INHALATION 3 ml RT-QID [facility] Administration Aspirin 81 mg 12/22/20 09:00 12/22/20 09:09 Aspirin 81 Mg PO 81 mg DAILY [facility] Administration Atorvastatin Calcium 20 mg 12/22/20 09:00 12/22/20 09:10 Atorvastatin 20 Mg Tab PO 20 mg DAILY [facility] Administration Budesonide/Formoterol Fumarate 2 puff 12/21/20 20:00 12/22/20 08:13 Symbicort 160-4.5 Mcg Inhaler INHALATION Not Given RT-BID [facility] Bupropion HCl 150 mg 12/21/20 21:00 12/22/20 09:10 Bupropion Sr 150 Mg Tablet.Er PO 150 mg BID [facility] Administration Carvedilol 12.5 mg 12/21/20 17:30 12/22/20 06:41 Carvedilol 12.5 Mg Tab PO 12.5 mg BID-W/MEALS [facility] Administration Cyclobenzaprine HCl 10 mg 12/21/20 17:58 12/21/20 18:42 Cyclobenzaprine 10 Mg Tab PO 10 mg TID PRN Administration Muscle Spasm Heparin Sodium (Porcine) 0 unit 12/21/20 17:07 12/22/20 09:23 Heparin Sodium 1,000 Un/Ml (10ml Vl) IV 2,500 unit PER PROTOCOL PRN Administration Low PTT Protocol Hydromorphone HCl 0.5 mg 12/21/20 20:51 12/22/20 09:10 Hydromorphone 0.5 Mg/0.5 Ml Syringe IVP 0.5 mg Q3HR PRN Administration Pain Piperacillin Sod/Tazobactam 100 mls @ 25 mls/hr 12/21/20 20:00 12/22/20 12:03 Sod 3.375 gm/ Sodium Chloride IVPB 25 mls/hr Q8H [facility] Administration Vancomycin HCl 1,500 mg/ 250 mls @ 125 mls/hr 12/21/20 10:00 12/22/20 11:43 Sodium Chloride IVPB 125 mls/hr Q12H [facility] Administration Heparin Sodium/Sodium Chloride 250 mls @ 9.997 mls/hr 12/21/20 17:15 12/22/20 09:21 25,000 unit/ Sodium Chloride IV 15.6 units/kg/hr .Q24H [facility] 13.445 mls/hr Titration Protocol 11.6 UNITS/KG/HR Ketorolac Tromethamine 15 mg 12/21/20 20:52 12/22/20 04:21 Ketorolac 15 Mg/Ml 1 Ml Vial IVP 12/24/20 20:52 15 mg Q6HR PRN Administration Pain Scale 4 to 6 Miscellaneous Information 1 each 12/21/20 10:21 Rx Info: Iv Contrast Was Given 1 [facility] 12/23/20 10:21 DAILY PRN Per Protocol Miscellaneous Information 0 each 12/23/20 09:00 Vancomycin Trough Due 1 [facility] 12/23/20 09:01 DIRECTED ONE Morphine Sulfate 2 mg 12/21/20 11:16 12/21/20 20:37 Morphine Sulfate 2 Mg/Ml Syringe IVP 2 mg Q4HR PRN Administration Pain/Discomfort Nitroglycerin 0.4 mg 12/21/20 08:24 12/21/20 08:24 Nitroglycerin Sl Tabs 0.4 Mg Tab SUBLINGUAL 0.4 mg ONCE PRN Administration Chest Pain Valsartan 80 mg 12/22/20 09:00 12/22/20 09:11 Valsartan 80 Mg Tab PO 80 mg DAILY [facility] Administration Intake and Output 12/21/20 12/22/20 12/22/20 22:59 06:59 14:59 Intake Total 4000 72.978 98.652 Output Total 725 275 Balance 3275 -202.022 98.652 Intake: Intake, IV Titration 72.978 98.652 Amount Heparin Sod,Pork in 0.45% 72.978 98.652 NaCl 25,000 unit In 0.45 % NaCl 1 250ml.bag @ 11.6 UNITS/KG/HR 9.997 mls/hr IV .Q24H [facility] Rx#: [id number] Oral 4000 Output: Urine 725 275 Other: # Voids 1 1 Weight 99 kg 12/22/20 06:54 12/22/20 06:54
[2020-12-22] MEDS: HEPARIN SOD,PORK IN 0.45% NACL 25,000 UNIT in 0.45% NACL 1 250ML.BAG IV SCH (15:39)
--- NOTE | 2020-12-22 16:59 | P.PN ---
Subjective Progress Note Date: 12/22/20 Principal diagnosis: Right lung abscess, and pneumonia 55-year-old male patient is presenting today with extensive right-sided chest wall pain radiating to his back which has some pleuritic in nature. The patient's had a voltage criteria of LVH on his EKG. He was taken to cath eterization and the cardiac catheterization do not to be within normal limits. A CT angiogram of the chest and the thoracic aorta was done and the CT angiogram showed the possibility of a right lower lobe lung abscess measuring 6.3 cm in size in addition to a right-sided pleural effusion which was small. The ascending aorta was measuring 4.1 cm in size. The patient has cardiomegaly. Pulmonary consultation was requested accordingly. Currently is on oxygen on 2 L. Is quite uncomfortable and is having pain along his lites side of the chest and he is unable to take a deep breath. White cell count of 14.7. D-dimer is at 2.34. Creatinine is at 1.3. Troponins are negative. ProBNP level is at 475. Noted the patient was in the emergency department on 12/15/2020. At that time he came in with five-day history of shortness of breath and chills and body aches. He was seen by the emergency department staff and a chest x-ray was given at that time on 12/15/2020 of the chest x-ray showed no significant acute abnormality. There was a suspicious right basilar infiltrate. At that point, the patient was given Zithromax and the patient was given a 5 day course of prednisone 20 mg and he was discharged home. Over the past week, the patient continued to be symptomatic and short of breath and he was not bringing up much sputum. No hemoptysis. His condition got worse and for that reason he presented to the hospital. Note that around 2 weeks ago, he was hospitalized in [place] for an RSV infection of the lung and COPD exacerbation. He is a chronic smoker and he has [id number] smoking history and he quit smoking in September 2020. He is known to have COPD. Other comorbid conditions include hypertension, hyperlipidemia, hypertensive cardiomyopathy and previous history of depression. No history of any substance abuse. Reevaluated today on 12/22/2020, patient remains on the cardiac floor, continues to have pain especially upon taking a deep breath, pain is mostly on the right side/right base. Patient was seen yesterday by Dr. Johnston, and the workup seems to be mostly consistent with right lung abscess and right lower lobe pneumonia. Patient remains on antibiotics. Including vancomycin and Zosyn. Will recommend infectious disease consultation on this patient.. He is to have leukocytosis with WBC count of 24.2 hemoglobin 11.9. Electrolytes are normal renal profile is normal Objective - Vital Signs Vital signs: Vital Signs Temp 98.9 F 12/22/20 15:35 Pulse 90 12/22/20 15:58 Resp 32 H 12/22/20 15:39 BP 164/89 12/22/20 15:35 Pulse Ox 96 12/22/20 15:39 Intake & Output 12/21/20 12/22/20 12/22/20 18:59 06:59 18:59 Intake Total 4340 72.978 177.022 Output Total 200 800 Balance 4140 -727.022 177.022 Weight 86.183 kg 99 kg Intake: IV 100 Intake, IV Titration 72.978 177.022 Amount Heparin Sod,Pork in 0.45% 72.978 177.022 NaCl 25,000 unit In 0.45 % NaCl 1 250ml.bag @ 11.6 UNITS/KG/HR 9.997 mls/hr IV .Q24H [facility] Rx#: [id number] Oral 4240 Output: Urine 200 800 Other: # Voids 4 1 1 - Exam Physical Exam: Revealed 55-year-old male in no distress Head: Atraumatic, normocephalic. HEENT:[Neck is supple.] [No neck masses.] [No thyromegaly.] [No JVD.] Chest: [[employer] breath sounds and dullness at the right base left side is clear Cardiac Exam: [Normal S1 and S2, no S3 gallop, no murmur.] Abdomen: [Soft, nontender, no megaly, no rebound, no guarding, normal bowel sounds.] Extremities: [No clubbing, no edema, no cyanosis.] Neurological Exam: [No focal neurologic deficit.] Alert oriented 3. Psychiatric: Normal mood affect and normal mental status examination. Skin: No rashes. - Labs CBC & Chem 7: 12/22/20 06:54 12/22/20 06:54 Labs: Abnormal Lab Results - Last 24 Hours (Table) 12/21/20 12/21/20 12/21/20 Range/Units 11:44 13:40 17:16 WBC (3.8-10.6) k/uL RBC (4.30-5.90) m/uL Hgb (13.0-17.5) gm/dL Hct (39.0-53.0) % Neutrophils # (1.3-7.7) k/uL Lymphocytes # (1.0-4.8) k/uL PT (9.0-12.0) sec INR (<1.2) APTT (22.0-30.0) sec Sodium 135 L (137-145) mmol/L Glucose 124 H (74-99) mg/dL POC Glucose (mg/dL) (75-99) mg/dL Procalcitonin 1.27 H (0.02-0.09) ng/mL Urine Opiates Screen Positive A (Negative) U Benzodiazepines Scrn Positive A (Negative) 12/21/20 12/21/20 12/22/20 Range/Units 17:16 17:51 00:08 WBC 18.7 H (3.8-10.6) k/uL RBC 3.74 L (4.30-5.90) m/uL Hgb 11.7 L (13.0-17.5) gm/dL Hct 37.2 L (39.0-53.0) % Neutrophils # 16.9 H (1.3-7.7) k/uL Lymphocytes # 0.6 L (1.0-4.8) k/uL PT (9.0-12.0) sec INR (<1.2) APTT 38.5 H (22.0-30.0) sec Sodium (137-145) mmol/L Glucose (74-99) mg/dL POC Glucose (mg/dL) 119 H (75-99) mg/dL Procalcitonin (0.02-0.09) ng/mL Urine Opiates Screen (Negative) U Benzodiazepines Scrn (Negative) 12/22/20 12/22/20 12/22/20 Range/Units 06:54 06:54 06:54 WBC 24.2 H (3.8-10.6) k/uL RBC 3.70 L (4.30-5.90) m/uL Hgb 11.9 L (13.0-17.5) gm/dL Hct 36.9 L (39.0-53.0) % Neutrophils # 22.1 H (1.3-7.7) k/uL Lymphocytes # 0.9 L (1.0-4.8) k/uL PT 12.7 H (9.0-12.0) sec INR 1.2 H (<1.2) APTT (22.0-30.0) sec Sodium 132 L (137-145) mmol/L Glucose (74-99) mg/dL POC Glucose (mg/dL) (75-99) mg/dL Procalcitonin (0.02-0.09) ng/mL Urine Opiates Screen (Negative) U Benzodiazepines Scrn (Negative) 12/22/20 12/22/20 Range/Units 06:54 15:17 WBC (3.8-10.6) k/uL RBC (4.30-5.90) m/uL Hgb (13.0-17.5) gm/dL Hct (39.0-53.0) % Neutrophils # (1.3-7.7) k/uL Lymphocytes # (1.0-4.8) k/uL PT (9.0-12.0) sec INR (<1.2) APTT 35.7 H 38.2 H (22.0-30.0) sec Sodium (137-145) mmol/L Glucose (74-99) mg/dL POC Glucose (mg/dL) (75-99) mg/dL Procalcitonin (0.02-0.09) ng/mL Urine Opiates Screen (Negative) U Benzodiazepines Scrn (Negative) Microbiology - Last 24 Hours (Table) 12/21/20 12:00 Blood Culture - Preliminary Blood No Growth after 24 hours 12/21/20 21:00 Gram Stain - Preliminary Sputum Sputum Culture - Preliminary Assessment and Plan Assessment: 1 acute community-acquired right lower lobe pneumonia complicated with lung abscess. acute hypoxic respiratory failure secondary to above pleurisy and chest pain and shortness of breath secondary to above History of underlying COPD presently inactive. Hypertensive cardiomyopathy dyslipidemia Normal coronary angiogram. Recommendation: Continue antibiotics including Zosyn and vancomycin Continue pain management and pain control Continue IV fluids Continue [facility] Infectious disease to see her on consultation. Blood cultures remain negative so far. We'll continue to follow. Time with Patient: Less than 30
--- NOTE | 2020-12-22 20:36 | P.PN ---
Subjective 55-year-old male who presents emergency pertinent past medical history significant for cardiomyopathy hypertension high cholesterol and recently quit smoking. Patient comes in stating 5 AM this morning he was having severe left- sided chest pain. Patient denies any radiation. Patient states he is somewhat short of breath per patient denies any diaphoretic episodes. Patient states the pain never goes away but it does get worse and get better. Patient denies any nausea. Patient denies abdominal pain patient denies any vomiting. Patient de nies any recent fevers or chills per patient states he does have an upper respiratory infection recently and he was seen in emergency department. Patient states she was negative for COVID. CT of his aorta to rule out dissection. CT was done and showed no dissection. CT did show possibility of a pulmonary abscess in the right lower lung. EKG shows normal sinus rhythm at 73 bpm WV interval 160 QRS is under QT interval 370 QTC is 416. Patient's EKG shows some ST segment elevation in the anterior leads V1 and V2 and V3. Patient has T-wave abnormalities in the precordial leads V4 V5 and V6 as well as inferior leads which were also seen on previous EKG. A STEMI overhead was called. Patient received 1 mg of Ativan and nitroglycerin and aspirin immediately upon arrival in the emergency department. 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 Risks patient was thought to have based on abnormal EKG however cardiac cath showing non-obstructive coronary artery disease. Patient found mostly his symptoms, from right pneumonia and right lung abscess. Is still in respiratory distress and tachypneic because of his infection. He is breathing fast 30s. Rest of vitals are stable. WBC is elevated at 24. Liver enzymes mildly elevated. Which are rest of labs are unremarkable. Poorcalcitonin elevated at 1.27. Thoracic aortic CT is negative for dissection he has ascending aortic aneurysm of 4.1 cm right lung abscess about 6.3 cm. He is currently kept on normal saline at 75, Zosyn and IV vancomycin Objective - Vital Signs Vital signs: Vital Signs Temp 97.9 F 12/22/20 11:40 Pulse 83 12/22/20 14:13 Resp 25 H 12/22/20 14:13 BP 120/71 12/22/20 14:13 Pulse Ox 97 12/22/20 14:13 Intake & Output 12/21/20 12/22/20 12/22/20 18:59 06:59 18:59 Intake Total 4340 72.978 98.652 Output Total 200 800 Balance 4140 -727.022 98.652 Weight 86.183 kg 99 kg Intake: IV 100 Intake, IV Titration 72.978 98.652 Amount Heparin Sod,Pork in 0.45% 72.978 98.652 NaCl 25,000 unit In 0.45 % NaCl 1 250ml.bag @ 11.6 UNITS/KG/HR 9.997 mls/hr IV .Q24H [facility] Rx#: [id number] Oral 4240 Output: Urine 200 800 Other: # Voids 4 1 - Exam GENERAL: The patient is alert and oriented x3, not in any acute distress. Well developed, well nourished. HEENT: Pupils are round and equally reacting to light. EOMI. No scleral icterus. No conjunctival pallor. Normocephalic, atraumatic. No pharyngeal erythema. No thyromegaly. CARDIOVASCULAR: S1 and S2 present. No murmurs, rubs, or gallops. -PULMONARY: Chest is clear to auscultation, no wheezing or crackles. Tachypneic ABDOMEN: Soft, nontender, nondistended, normoactive bowel sounds. No palpable organomegaly. MUSCULOSKELETAL: No joint swelling or deformity. EXTREMITIES: No cyanosis, clubbing, or pedal edema. NEUROLOGICAL: Gross neurological examination did not reveal any focal deficits. SKIN: No rashes. no petechiae. - Labs CBC & Chem 7: 12/22/20 06:54 12/22/20 06:54 Labs: Abnormal Lab Results - Last 24 Hours (Table) 12/21/20 12/21/20 12/21/20 Range/Units 11:44 13:40 17:16 WBC (3.8-10.6) k/uL RBC (4.30-5.90) m/uL Hgb (13.0-17.5) gm/dL Hct (39.0-53.0) % Neutrophils # (1.3-7.7) k/uL Lymphocytes # (1.0-4.8) k/uL PT (9.0-12.0) sec INR (<1.2) APTT (22.0-30.0) sec Sodium 135 L (137-145) mmol/L Glucose 124 H (74-99) mg/dL POC Glucose (mg/dL) (75-99) mg/dL Procalcitonin 1.27 H (0.02-0.09) ng/mL Urine Opiates Screen Positive A (Negative) U Benzodiazepines Scrn Positive A (Negative) 12/21/20 12/21/20 12/22/20 Range/Units 17:16 17:51 00:08 WBC 18.7 H (3.8-10.6) k/uL RBC 3.74 L (4.30-5.90) m/uL Hgb 11.7 L (13.0-17.5) gm/dL Hct 37.2 L (39.0-53.0) % Neutrophils # 16.9 H (1.3-7.7) k/uL Lymphocytes # 0.6 L (1.0-4.8) k/uL PT (9.0-12.0) sec INR (<1.2) APTT 38.5 H (22.0-30.0) sec Sodium (137-145) mmol/L Glucose (74-99) mg/dL POC Glucose (mg/dL) 119 H (75-99) mg/dL Procalcitonin (0.02-0.09) ng/mL Urine Opiates Screen (Negative) U Benzodiazepines Scrn (Negative) 12/22/20 12/22/20 12/22/20 Range/Units 06:54 06:54 06:54 WBC 24.2 H (3.8-10.6) k/uL RBC 3.70 L (4.30-5.90) m/uL Hgb 11.9 L (13.0-17.5) gm/dL Hct 36.9 L (39.0-53.0) % Neutrophils # 22.1 H (1.3-7.7) k/uL Lymphocytes # 0.9 L (1.0-4.8) k/uL PT 12.7 H (9.0-12.0) sec INR 1.2 H (<1.2) APTT (22.0-30.0) sec Sodium 132 L (137-145) mmol/L Glucose (74-99) mg/dL POC Glucose (mg/dL) (75-99) mg/dL Procalcitonin (0.02-0.09) ng/mL Urine Opiates Screen (Negative) U Benzodiazepines Scrn (Negative) 12/22/20 Range/Units 06:54 WBC (3.8-10.6) k/uL RBC (4.30-5.90) m/uL Hgb (13.0-17.5) gm/dL Hct (39.0-53.0) % Neutrophils # (1.3-7.7) k/uL Lymphocytes # (1.0-4.8) k/uL PT (9.0-12.0) sec INR (<1.2) APTT 35.7 H (22.0-30.0) sec Sodium (137-145) mmol/L Glucose (74-99) mg/dL POC Glucose (mg/dL) (75-99) mg/dL Procalcitonin (0.02-0.09) ng/mL Urine Opiates Screen (Negative) U Benzodiazepines Scrn (Negative) Microbiology - Last 24 Hours (Table) 12/21/20 12:00 Blood Culture - Preliminary Blood No Growth after 24 hours 12/21/20 21:00 Gram Stain - Preliminary Sputum Sputum Culture - Preliminary Assessment and Plan Assessment: Right lung abscess 6.3 cm in diameter. Right side pneumonia Ascending aortic aneurysm 4.1 cm Sepsis secondary to above Plan: This is a pleasant 55 years old male presents with right lung abscess and pneumonia Continue with IV vancomycin and Zosyn. Follow-up blood cultures Continue gentle hydration Pulmonary and infectious disease consult Labs and medication were reviewed.. Continue same treatment. Continue with symptomatic treatment. Resume home medication. Monitor lytes and vitals. DVT and GI prophylaxis. Further recommendationsas per clinical course of the p atient DVT prophylaxis: Subcutaneous heparin GI Prophylaxis: Pepcid Prognosis is guarded
[2020-12-22] MEDS: HEPARIN SODIUM,PORCINE/PF 5,000 UNIT/0.5 ML SYRINGE SQ SCH (22:03)
[2020-12-22] MEDS: FAMOTIDINE 20 MG/2 ML VIAL IV SCH (22:15)
[2020-12-23] MEDS: KETOROLAC 15 MG/ML 1 ML VIAL IVP PRN (02:15)
[2020-12-23] MEDS: HYDROmorphone 0.5 MG/0.5 ML SYRINGE IVP PRN ×4 (03:44→18:51)
[2020-12-23 03:47] LABS: Glucose,Whole Blood 119 mg/dL (75-99)
[2020-12-23] MEDS: PIPERACILLIN-TAZOBACTAM 3.375 GM in SODIUM CHLORIDE 0.9% 100 ML IVPB SCH (03:53)
[2020-12-23] MEDS ORDERED: IPRATROPIUM-ALBUTEROL 3 ML NEB INHALATION PRN (04:10)
[2020-12-23] MEDS: IPRATROPIUM-ALBUTEROL 3 ML NEB INHALATION SCH ×5 (04:10→18:56)
[2020-12-23] MEDS: carvediloL 12.5 MG TAB PO SCH ×2 (06:30→17:18)
--- NOTE | 2020-12-23 07:42 | ECHOF ---
Referral Reason:LV function MEASUREMENTS -------- HEIGHT: 180.3 cm WEIGHT: 98.9 kg BP: RVIDd: 2.8 cm (< 3.3) IVSd: 1.5 cm (0.6 - 1.1) LVIDd: 4.0 cm (3.9 - 5.3) LVPWd: 1.7 cm (0.6 - 1.1) IVSs: 2.2 cm LVIDs: 2.2 cm LVPWs: 2.2 cm LAESV Index (A-L): 21.30 ml/m Ao Diam: 3.8 cm (2.0 - 3.7) AV Cusp: 2.2 cm (1.5 - 2.6) LA Diam: 2.9 cm (2.7 - 3.8) MV EXCURSION: 16.659 mm (> 18.000) MV EF SLOPE: 119 mm/s (70 - 150) EPSS: 0.3 cm MV E Boogie: 0.83 m/s MV DecT: 159 ms MV A Boogie: 0.94 m/s MV E/A Ratio: 0.89 AV maxP.53 mmHg AV meanP.31 mmHg AR PHT: 509 ms RAP: 5.00 mmHg RVSP: 20.64 mmHg FINDINGS -------- This was a technically good study. The left ventricular size is normal. There is severe concentric left ventricular hypertrophy. Ove rall left ventricular systolic function is normal with, an EF between 55 - 60 %. Normal LAP. Grade 1 Diastolic Dysfunction. The right ventricle is normal in size. The global wall thickness of the right ventricle is mildly e nlarged. The left atrial size is normal. Normal LA size by volume 22+/-6 ml/m2. The right atrial size is normal. The aortic valve is trileaflet and appears structurally normal. There is mild aortic regurgitation. Peak/mean gradient across the Aortic Valve is 22.53mmHg / 17.31mmHg. The mitral valve is normal. Mild mitral regurgitation is present. The tricuspid valve appears structurally normal. Mild tricuspid regurgitation present. Right vent ricular systolic pressure is normal at < 35 mmHg. There is no pulmonic regurgitation present. The aortic root size is normal. Normal inferior vena cava with normal inspiratory collapse consistent with estimated right atrial pre ssure of 5 mmHg. There is a small, generalized pericardial effusion present. CONCLUSIONS -------- 1. There is severe concentric left ventricular hypertrophy. 2. Overall left ventricular systolic function is normal with, an EF between 55 - 60 %. 3. Normal LAP. Grade 1 Diastolic Dysfunction. 4. The global wall thickness of the right ventricle is mildly enlarged. 5. The aortic valve is trileaflet and appears structurally normal. 6. There is mild aortic regurgitation. 7. Peak/mean gradient across the Aortic Valve is 22.53mmHg / 17.31mmHg. 8. Mild mitral regurgitation is present. 9. Mild tricuspid regurgitation present. 10. There is a small, generalized pericardial effusion present. [employer]ARGET TRIMMER: Erika Celis RDCS
[2020-12-23] MEDS: SYMBICORT 160-4.5 MCG INHALER INHALATION SCH ×2 (08:29→18:56)
[2020-12-23] MEDS: ATORVASTATIN 20 MG TAB PO SCH (08:58)
[2020-12-23] MEDS: ASPIRIN 81 MG PO SCH (08:58)
[2020-12-23] MEDS: buPROPion SR 150 MG TABLET.ER PO SCH ×2 (08:58→21:00)
[2020-12-23] MEDS: FAMOTIDINE 20 MG/2 ML VIAL IV SCH (08:58)
[2020-12-23] MEDS: HEPARIN SODIUM,PORCINE/PF 5,000 UNIT/0.5 ML SYRINGE SQ SCH ×2 (08:58→20:59)
[2020-12-23] MEDS: VALSARTAN 80 MG TAB PO SCH (08:59)
[2020-12-23] MEDS ORDERED: VANCOMYCIN TROUGH DUE 1 EACH MISC MISCELLANE ONE (09:00)
--- NOTE | 2020-12-23 09:24 | CDI ---
Documentation Clarification Form Date: 12/23/2020 08:49:43 AM From: Raquel Phillips RN CCDS Admit Date: 12/21/2020 09:27:00 AM Patient Name: Joey Houser Visit Number: [id number] Discharge Date: ATTENTION: The Clinical Documentation Specialists (CDI) and [facility] Coding Staff appreciate your assistance in clarifying documentation. Please respond to the clarification below the line at the bottom and electronically sign. The CDI & [facility] Coding staff will review the response and follow-up if needed. Please note: Queries are made part of the Legal Health Record. If you have any questions, please contact the author of this message via ITS. Dr. Chad Quinones Sepsis is documented 12/22, medicine progress note. For each diagnosis, documentation must be clear to determine if the condition was present at the time of the patients inpatient admission or developed during the hospital stay. Additional clarification regarding the Sepsis is requested. History/Risk Factors: 55-year-old male presents to the ED with severe left sided chest pain with being somewhat short of breath. Medical History: COPD and HTN. H&P 12/21. Clinical Indicators: VSS: 12/21 B/P 135/84, HR 74, Temp 98.0 F, RR 18, SpO2 95% room air. Labs: 12/21 Wbc 14.7, Hgb 12.1 Neutrophils 12.5, D- dimer 2.34, Procalcitonin 1.27. CTA: 12/21 6.3cm lesion in the medial right lower lobe. Cardiomegaly with small to tiny right greater than left pleural effusions. Treatment: 12/21 0.9ns 500mls IV bolus x1;12/21 Zosyn 3.375gm IVPB x 1; 12/21 Zosyn 3.375gm Q8H [facility] to current; 12/21 Vancomycin 1,500mg IVPB Q12H to current. Definition of Present on Admission (POA): A diagnosis present at the time the order for admission to inpatient status was written. Please clarify if the Sepsis was POA [ ] Y = Yes, the condition was present at the time of the order for inpatient admission. [ ] N = No, the condition was not present at the time of the order for inpatient admission. [ ] W = Clinically undetermined if the condition was present at the time of the order for inpatient admission. (Template Last Revised: May 2020) Sepsis is POA MTDD
[2020-12-23] MEDS: VANCOMYCIN 1,500 MG in SODIUM CHLORIDE 0.9% 250 ML IVPB SCH ×2 (10:39→16:13)
[2020-12-23 10:59] LABS: ALT 68 U/L (4-49); AST 47 U/L (17-59); African American GFR (CKD) >90 (>60 ml/min/1.73 sqM); Albumin 2.7 g/dL (3.5-5.0); Alkaline Phosphatase 109 U/L (38-126); Anion Gap 11 mmol/L; Blood Urea Nitrogen 17 mg/dL (9-20); Calcium 8.8 mg/dL (8.4-10.2); Carbon Dioxide 20 mmol/L (22-30); Chloride 102 mmol/L (98-107); Glucose 158 mg/dL (74-99); Non-African American GFR(CKD) >90 (>60 ml/min/1.73 sqM); Potassium 4.7 mmol/L (3.5-5.1); Sodium 133 mmol/L (137-145); Total Bilirubin 1.7 mg/dL (0.2-1.3); Total Protein 5.8 g/dL (6.3-8.2)
--- NOTE | 2020-12-23 11:43 | P.PN ---
Subjective 55-year-old male who presents emergency pertinent past medical history significant for cardiomyopathy hypertension high cholesterol and recently quit smoking. Patient comes in stating 5 AM this morning he was having severe left- sided chest pain. Patient denies any radiation. Patient states he is somewhat short of breath per patient denies any diaphoretic episodes. Patient states the pain never goes away but it does get worse and get better. Patient denies any nausea. Patient denies abdominal pain patient denies any vomiting. Patient de nies any recent fevers or chills per patient states he does have an upper respiratory infection recently and he was seen in emergency department. Patient states she was negative for COVID. CT of his aorta to rule out dissection. CT was done and showed no dissection. CT did show possibility of a pulmonary abscess in the right lower lung. EKG shows normal sinus rhythm at 73 bpm WV interval 160 QRS is under QT interval 370 QTC is 416. Patient's EKG shows some ST segment elevation in the anterior leads V1 and V2 and V3. Patient has T-wave abnormalities in the precordial leads V4 V5 and V6 as well as inferior leads which were also seen on previous EKG. A STEMI overhead was called. Patient received 1 mg of Ativan and nitroglycerin and aspirin immediately upon arrival in the emergency department. Patient was evaluated by cardiology in the ED and was taken to medical laboratory assistant Subjective: 11/22/2020 This is a pleasant 55 -B[place] male with multiple medical problems presents with respiratory distress. Risks patient was thought to have based on abnormal EKG however cardiac cath showing non-obstructive coronary artery disease. Patient found mostly his symptoms, from right pneumonia and right lung abscess. Is still in respiratory distress and tachypneic because of his infection. He is breathing fast 30s. Rest of vitals are stable. WBC is elevated at 24. Liver enzymes mildly elevated. Which are rest of labs are unremarkable. Poorcalcitonin elevated at 1.27. Thoracic aortic CT is negative for dissection he has ascending aortic aneurysm of 4.1 cm right lung abscess about 6.3 cm. He is currently kept on normal saline at 75, Zosyn and IV vancomycin 11/23/20 Patient is still complaining of from dyspnea and pain on the right side of the chest. His states that Dilaudid 0.5 mg is not enough and clots increased to 1 mg He still somewhat tachypneic but slightly better compared to yesterday. Patient is moderate respiratory distress. Other vitals are stable. WBC is pending today. Rest of labs are unremarkable. Creatinine is normal at 0.8. The patient remains on Zosyn, IV vancomycin and normal saline at 75 mL/h, also Medrol Dosepak added today. Objective - Vital Signs Vital signs: Vital Signs Temp 98.0 F 12/23/20 08:00 Pulse 92 12/23/20 11:27 Resp 24 12/23/20 08:00 BP 157/87 12/23/20 08:00 Pulse Ox 93 L 12/23/20 08:00 Intake & Output 12/22/20 12/23/20 12/23/20 18:59 06:59 18:59 Intake Total 197.190 780 Output Total 225 200 Balance 197.190 -225 580 Weight 96 kg Intake: Intake, IV Titration 197.190 Amount Heparin Sod,Pork in 0.45% 197.190 NaCl 25,000 unit In 0.45 % NaCl 1 250ml.bag @ 11.6 UNITS/KG/HR 9.997 mls/hr IV .Q24H [facility] Rx#: [id number] Oral 780 Output: Urine 225 200 Other: # Voids 1 1 - Exam GENERAL: The patient is alert and oriented x3, not in any acute distress. Well developed, well nourished. HEENT: Pupils are round and equally reacting to light. EOMI. No scleral icterus. No conjunctival pallor. Normocephalic, atraumatic. No pharyngeal erythema. No thyromegaly. CARDIOVASCULAR: S1 and S2 present. No murmurs, rubs, or gallops. -PULMONARY: Chest is clear to auscultation, no wheezing or crackles. Tachypneic ABDOMEN: Soft, nontender, nondistended, normoactive bowel sounds. No palpable organomegaly. MUSCULOSKELETAL: No joint swelling or deformity. EXTREMITIES: No cyanosis, clubbing, or pedal edema. NEUROLOGICAL: Gross neurological examination did not reveal any focal deficits. SKIN: No rashes. no petechiae. - Labs CBC & Chem 7: 12/22/20 06:54 12/23/20 08:53 Labs: Abnormal Lab Results - Last 24 Hours (Table) 12/22/20 12/23/20 12/23/20 Range/Units 15:17 03:44 08:53 APTT 38.2 H (22.0-30.0) sec Sodium 133 L (137-145) mmol/L Carbon Dioxide 20 L (22-30) mmol/L Glucose 158 H (74-99) mg/dL POC Glucose (mg/dL) 119 H (75-99) mg/dL Total Bilirubin 1.7 H (0.2-1.3) mg/dL ALT 68 H (4-49) U/L Total Protein 5.8 L (6.3-8.2) g/dL Albumin 2.7 L (3.5-5.0) g/dL Microbiology - Last 24 Hours (Table) 12/21/20 12:00 Blood Culture - Preliminary Blood No Growth after 24 hours 12/21/20 21:00 Gram Stain - Preliminary Sputum Sputum Culture - Preliminary Assessment and Plan Assessment: Right lung abscess 6.3 cm in diameter. Right side pneumonia Ascending aortic aneurysm 4.1 cm Sepsis secondary to above Plan: This is a pleasant 55 years old male presents with right lung abscess and pneumonia Continue with IV vancomycin and Zosyn. Follow-up blood cultures Continue gentle hydration Pulmonary and infectious disease consult Labs and medication were reviewed.. Continue same treatment. Continue with symptomatic treatment. Resume home medication. Monitor lytes and vitals. DVT and GI prophylaxis. Further recommendationsas per clinical course of the patient DVT prophylaxis: Subcutaneous heparin GI Prophylaxis: Pepcid Prognosis is guarded
[2020-12-23] MEDS: AMPICILLIN-SULBACTAM 3 GM in SODIUM CHLORIDE 0.9% 100 ML IVPB SCH ×2 (12:21→17:18)
[2020-12-23] MEDS: SODIUM CHLORIDE 0.9% 1,000 ML IV SCH (12:22)
--- NOTE | 2020-12-23 12:43 | P.PN ---
Subjective Progress Note Date: 12/23/20 Principal diagnosis: Right lung abscess, pneumonia 55-year-old male patient is presenting today with extensive right-sided chest wall pain radiating to his back which has some pleuritic in nature. The patient's had a voltage criteria of LVH on his EKG. He was taken to catheter ization and the cardiac catheterization do not to be within normal limits. A CT angiogram of the chest and the thoracic aorta was done and the CT angiogram showed the possibility of a right lower lobe lung abscess measuring 6.3 cm in size in addition to a right-sided pleural effusion which was small. The ascending aorta was measuring 4.1 cm in size. The patient has cardiomegaly. Pulmonary consultation was requested accordingly. Currently is on oxygen on 2 L. Is quite uncomfortable and is having pain along his lites side of the chest and he is unable to take a deep breath. White cell count of 14.7. D-dimer is at 2.34. Creatinine is at 1.3. Troponins are negative. ProBNP level is at 475. Noted the patient was in the emergency department on 12/15/2020. At that time he came in with five-day history of shortness of breath and chills and body aches. He was seen by the emergency department staff and a chest x-ray was given at that time on 12/15/2020 of the chest x-ray showed no significant acute abnormality. There was a suspicious right basilar infiltrate. At that point, the patient was given Zithromax and the patient was given a 5 day course of prednisone 20 mg and he was discharged home. Over the past week, the patient continued to be symptomatic and short of breath and he was not bringing up much sputum. No hemoptysis. His condition got worse and for that reason he presented to the hospital. Note that around 2 weeks ago, he was hospitalized in [place] for an RSV infection of the lung and COPD exacerbation. He is a chronic smoker and he has [id number] smoking history and he quit smoking in September 2020. He is known to have COPD. Other comorbid conditions include hypertension, hyperlipidemia, hypertensive cardiomyopathy and previous history of depression. No history of any substance abuse. Reevaluated today on 12/22/2020, patient remains on the cardiac floor, continues to have pain especially upon taking a deep breath, pain is mostly on the right s reese/right base. Patient was seen yesterday by Dr. Johnston, and the workup seems to be mostly consistent with right lung abscess and right lower lobe pneumonia. Patient remains on antibiotics. Including vancomycin and Zosyn. Will recommend infectious disease consultation on this patient.. He is to have leukocytosis with WBC count of 24.2 hemoglobin 11.9. Electrolytes are normal renal profile is normal. The patient is seen today 12/23/2020 in follow-up on the selective care unit. He is currently resting fairly comfortably in bed. Still having some right- sided chest discomfort. Pain on inhalation. Blood culture pending. Sputum culture pending. Sodium 133. Potassium 4.7. Creatinine 0.85. Vancomycin trough 9.9. He remains on vancomycin and Zosyn. Continued on Symbicort and Du oNeb inhalations. 0.9 normal saline at 75 ML's per hour. Objective - Vital Signs Vital signs: Vital Signs Temp 98.0 F 12/23/20 11:47 Pulse 93 12/23/20 11:47 Resp 24 12/23/20 11:47 BP 169/99 12/23/20 11:47 Pulse Ox 94 L 12/23/20 11:47 Intake & Output 12/22/20 12/23/20 12/23/20 18:59 06:59 18:59 Intake Total 197.190 780 Output Total 225 200 Balance 197.190 -225 580 Weight 96 kg Intake: Intake, IV Titration 197.190 Amount Heparin Sod,Pork in 0.45% 197.190 NaCl 25,000 unit In 0.45 % NaCl 1 250ml.bag @ 11.6 UNITS/KG/HR 9.997 mls/hr IV .Q24H [facility] Rx#: [id number] Oral 780 Output: Urine 225 200 Other: # Voids 1 1 - Exam Gen. appearance Pleasant 55-year-old male patient, mild degree of distress mainly complaining of pain and inability to take a deep breath. He is currently on 2 L of oxygen by nasal cannula. He is not using accessory muscles of breathing. Head exam was generally normal. There was no scleral icterus or corneal arcus. Mucous membranes were moist. Neck was supple and without jugular venous distension, thyromegaly, or carotid bruits. Carotids were easily palpable bilaterally. There was no adenopathy. Lungs sounds are diminished bilaterally as the patient is unable to take a full breath. There is some crackles in lung bases. No wheezing. Cardiac exam revealed the PMI to be normally situated and sized. The rhythm was regular and no extrasystoles were noted during several minutes of auscultation. The first and second heart sounds were normal and physiologic splitting of the second heart sound was noted. There were no murmurs, rubs, clicks, or gallops. Abdominal exam revealed normal bowel sounds. The abdomen was soft, non-tender, and without masses, organomegaly, or appreciable enlargement of the abdominal aorta. Extremities show adequate and symmetrical pulses. The patient's right radial access is within normal limits and the patient has no hematoma involved. Examination of the skin revealed no evidence of significant rashes, suspicious appearing nevi or other concerning lesions. Neurologically, the patient is awake and alert and the patient does not have any focal neurological deficit. Cranial nerves are essentially intact. - Labs CBC & Chem 7: 12/22/20 06:54 12/23/20 08:53 Labs: Abnormal Lab Results - Last 24 Hours (Table) 12/22/20 12/23/20 12/23/20 Range/Units 15:17 03:44 08:53 APTT 38.2 H (22.0-30.0) sec Sodium 133 L (137-145) mmol/L Carbon Dioxide 20 L (22-30) mmol/L Glucose 158 H (74-99) mg/dL POC Glucose (mg/dL) 119 H (75-99) mg/dL Total Bilirubin 1.7 H (0.2-1.3) mg/dL ALT 68 H (4-49) U/L Total Protein 5.8 L (6.3-8.2) g/dL Albumin 2.7 L (3.5-5.0) g/dL Microbiology - Last 24 Hours (Table) 12/21/20 12:00 Blood Culture - Preliminary Blood No Growth after 24 hours 12/21/20 21:00 Gram Stain - Preliminary Sputum Sputum Culture - Preliminary Assessment and Plan Assessment: 1 Right lower lobe pneumonia pneumonia complicated by development of a right lung abscess and right-sided pleural effusion. He's been initiated on vancomycin and Zosyn 2 Acute hypoxic respiratory failure secondary to above 3 Pleurisy and chest pain and shortness of breath secondary to above 4 Leukocytosis 5 Hypertensive cardiomyopathy 6 Normal coronary angiogram 7 Hyperlipidemia 8 COPD Plan: The patient was seen and evaluated by Dr. Nash Add Medrol Dosepak for pleuritic pain ID services are on the case Currently on vancomycin and now Unasyn Titrate the FiO2 as tolerated Follow-up labs in a.m. We will continue to follow I, the cosigning physician, performed a history & physical examination of the patient. Lungs sounds with crackles in the posterior bases. Maintaining good O2 saturations in the 90s on 2 L/m per nasal. I discussed the assessment and plan of care with my nurse practitioner, Katty Teixeira. I attest to the above note as dictated by her.
[2020-12-23] MEDS: methylPREDNISolone 4 MG TAB TAPER PO SCH (14:07)
[2020-12-23] MEDS: FAMOTIDINE 20 MG TAB PO SCH (21:00)
--- NOTE | 2020-12-23 23:05 | P.CONS ---
History of Present Illness - Reason for Consult Consult date: 12/23/20 pulmonary abscess Requesting physician: Rivka Nash - Chief Complaint chest pain x 1 day - History of Present Illness History of present illness : Patient is 55-year-old -Martiniquais male presenting to the ER on 06/07/2020 for evaluation of chest pain has been severe left-sided sharp in nature, 70 8 out of 10 with no radiation with associated shortness of breath and diaphoresis the patient was evaluated week prior to that and has been diagnosed with a possible bronchitis only has been treated with antibiotic patient on presentation to the hospital on telemetry and was afebrile and no fever has been recorded subsequently patient did have white count 14% as of 24.2 today did have elevated D-dimer kidney function has been normal progress was 1.27 urine was positive for opiates and benzo allen PCR was negative patient did have a chest x-ray that was reported negative for any acute infiltrate he did have thoracic aorta CT which did shows medial right lower lobe there is a lesion with central low-density loculated fluid with thick wall measuring 6.3X 3.3 cm suspicious for intra-abdominal abscess patient was started on Zosyn and vancomycin infectious was consulted for further management of antibiotic therapy patient did have blood cultures drawn which are currently pending Review of system: CONSTITUTIONAL: Positive for weakness along with the fever. EYES: No complaint. ENT: No complaint. RESPIRATORY: As per history of present illness. CARDIOVASCULAR: As per history of present illness. GENITOURINARY: No complaint. GASTROINTESTINAL: No complaint. MUSCULOSKELETAL: No complaint. INTEGUMENTARY: No complaint. PSYCHOLOGIC: No complaint. ENDOCRINE: No complaint. NEUROLOGIC: No complaint. Past medical history : Reviewed, documented below Past surgical history : Reviewed, documented below Social history: Reviewed, documented below Medications: Reviewed, as documented below EXAMINATION: Vital sigans= Reviewed and documented below GENERAL DESCRIPTION: Middle-aged male lying in bed, no distress. No tachypnea or accessory muscle of respiration use. HEENT: Shows Pallor , no scleral icterus. Oral mucous membrane is dry. NECK: Trachea central, no thyromegaly. LUNGS: Unlabored breathing. Coarse breath sounds bilaterally. No wheeze or crac kle. HEART: S1, S2, regular rate and rhythm. ABDOMEN: Soft, no tenderness , guarding or rigidity EXTREMITIES: No edema of feet. SKIN: No rash, no masses palpable. NEUROLOGICAL: The patient is awake, alert, oriented x3, mood and affect normal. LABS AND RADIOLOGY: Reviewed results see below Assessment : Patient presented to hospital with chest pain in this patient symptom has been going on for more than a week and apparently has been treated for possible pneumonia about a week ago now with a CT of thoracic aorta has been suspicious for a right sided intrapulmonary abscess likely from the routine pulmonary pathogen less likely aspiration etiology Plan: 1-patient may benefit from drainage of this abscess fluid sent for the culture discussed with pulmonary 2-vancomycin pharmacy to dose with a target trough of 15 while watching kidney function and Vanco trough closely. 3-discontinue Zosyn to decrease risk of nephrotoxicity and add Unasyn 3 g every 6 hours We will follow on clinical condition and cultures to further adjust medication if needed Thank you for this consultation we will follow the patient along with you Past Medical History Past Medical History: Heart Failure, COPD, Hyperlipidemia, Hypertension Additional Past Medical History / Comment(s): cardiomyopathy History of Any Multi-Drug Resistant Organisms: None Reported Past Surgical History: No Surgical Hx Reported Past Psychological History: Depression Smoking Status: Former smoker Past Alcohol Use History: Daily Past Drug Use History: None Reported Medications and Allergies Home Medications Medication Instructions Recorded Confirmed Type Albuterol Inhaler [Ventolin Hfa 2 puff INHALATION RT-Q4H PRN 12/21/20 12/21/20 History Inhaler] Atorvastatin [Lipitor] 80 mg PO DAILY 12/21/20 12/21/20 History Budesonide/Formoterol Fumarate 2 puff INHALATION RT-BID 12/21/20 12/21/20 History [Symbicort 160-4.5 Mcg Inhaler] Carvedilol [Coreg] 25 mg PO BID 12/21/20 12/21/20 History Furosemide [Lasix] 20 mg PO DAILY 12/21/20 12/21/20 History Ibuprofen [Motrin] 800 mg PO AC-TID 12/21/20 12/21/20 History Ipratropium-Albuterol Nebulize 1.5 ml INHALATION RT-QID 12/21/20 12/21/20 History [Duoneb 0.5 mg-3 mg/3 ml Soln] Valsartan [Diovan] 80 mg PO DAILY 12/21/20 12/21/20 History buPROPion SR [Wellbutrin SR] 150 mg PO BID 12/21/20 12/21/20 History Allergies Allergy/AdvReac Type Severity Reaction Status Date / Time acetaminophen [From Percocet] Allergy Unknown Verified 12/21/20 08:42 azithromycin Allergy Unknown Verified 12/21/20 08:42 erythromycin base Allergy Unknown Verified 12/21/20 08:42 oxycodone [From Percocet] Allergy Unknown Verified 12/21/20 08:42 Physical Exam Vitals: Vital Signs Temp Pulse Pulse Resp BP BP Pulse Ox 12/23/20 11:47 98.0 F 93 24 169/99 94 L 12/23/20 11:27 92 12/23/20 11:20 88 12/23/20 08:39 92 12/23/20 08:30 88 12/23/20 08:00 98.0 F 89 24 157/87 93 L 12/23/20 06:00 97.8 F 83 32 H 130/68 97 12/23/20 04:20 96 12/23/20 04:10 95 12/23/20 04:00 97.8 F 82 32 H 130/68 12/23/20 02:00 36 H 12/23/20 00:00 98.1 F 88 32 H 116/65 97 12/22/20 22:00 98.1 F 88 36 H 116/65 97 12/22/20 20:00 98.6 F 89 36 H 154/92 95 12/22/20 19:48 96 12/22/20 19:33 100 36 H 12/22/20 15:58 90 12/22/20 15:39 84 32 H 96 12/22/20 15:35 98.9 F 91 32 H 164/89 99 12/22/20 14:13 83 25 H 120/71 97 Intake and Output 12/22/20 12/23/20 12/23/20 22:59 06:59 14:59 Intake Total 98.538 780 Output Total 225 200 Balance 98.538 -225 580 Intake: Intake, IV Titration 98.538 Amount Heparin Sod,Pork in 0.45% 98.538 NaCl 25,000 unit In 0.45 % NaCl 1 250ml.bag @ 11.6 UNITS/KG/HR 9.997 mls/hr IV .Q24H [facility] Rx#: [id number] Oral 780 Output: Urine 225 200 Other: # Voids 1 1 Weight 96 kg Results CBC & Chem 7: 12/22/20 06:54 12/23/20 08:53 Labs: Abnormal Lab Results - Last 24 Hours (Table) 12/22/20 12/23/20 12/23/20 Range/Units 15:17 03:44 08:53 APTT 38.2 H (22.0-30.0) sec Sodium 133 L (137-145) mmol/L Carbon Dioxide 20 L (22-30) mmol/L Glucose 158 H (74-99) mg/dL POC Glucose (mg/dL) 119 H (75-99) mg/dL Total Bilirubin 1.7 H (0.2-1.3) mg/dL ALT 68 H (4-49) U/L Total Protein 5.8 L (6.3-8.2) g/dL Albumin 2.7 L (3.5-5.0) g/dL Microbiology - Last 24 Hours (Table) 12/21/20 12:00 Blood Culture - Preliminary Blood No Growth after 24 hours 12/21/20 21:00 Gram Stain - Preliminary Sputum Sputum Culture - Preliminary
[2020-12-24] MEDS: HYDROmorphone 0.5 MG/0.5 ML SYRINGE IVP PRN ×2 (00:52→18:05)
[2020-12-24] MEDS: AMPICILLIN-SULBACTAM 3 GM in SODIUM CHLORIDE 0.9% 100 ML IVPB SCH ×5 (00:53→23:04)
[2020-12-24] MEDS: VANCOMYCIN 1,500 MG in SODIUM CHLORIDE 0.9% 250 ML IVPB SCH ×4 (01:31→23:04)
[2020-12-24] MEDS: KETOROLAC 15 MG/ML 1 ML VIAL IVP PRN (03:50)
[2020-12-24] MEDS: carvediloL 12.5 MG TAB PO SCH ×2 (06:48→16:40)
[2020-12-24] MEDS: IPRATROPIUM-ALBUTEROL 3 ML NEB INHALATION SCH ×4 (08:13→19:38)
--- NOTE | 2020-12-24 08:16 | XR ---
EXAMINATION TYPE: XR chest 2V DATE OF EXAM: 12/24/2020 COMPARISON: Chest x-ray and CT 3 days ago. HISTORY: Pneumonia. TECHNIQUE: Frontal and lateral views of the chest are obtained. FINDINGS: The osseous structures remain intact. Small left pleural effusion. More prominent [id number] sized right pleural effusion with suspe cted apical component, fluid extends into the right minor fissure. Worsening right lung opacity sugge sts infiltrate and/or atelectasis. Rounded contour along right heart border corresponding to suspecte d intrapulmonary abscess or cavitary lesion is better seen on CT versus x-ray. No new mediastinal brisa ft. IMPRESSION: Worsening right greater than left pleural effusions. Worsening diffuse right lung infilt rates and/or edema.
[2020-12-24] MEDS: SODIUM CHLORIDE 0.9% 1,000 ML IV SCH ×2 (08:22→14:16)
[2020-12-24] MEDS: ASPIRIN 81 MG PO SCH (08:28)
[2020-12-24] MEDS: ATORVASTATIN 20 MG TAB PO SCH (08:28)
[2020-12-24] MEDS: HEPARIN SODIUM,PORCINE/PF 5,000 UNIT/0.5 ML SYRINGE SQ SCH ×2 (08:28→21:17)
[2020-12-24] MEDS: FAMOTIDINE 20 MG TAB PO SCH ×2 (08:28→20:13)
[2020-12-24] MEDS: buPROPion SR 150 MG TABLET.ER PO SCH ×2 (08:28→20:13)
[2020-12-24] MEDS: VALSARTAN 80 MG TAB PO SCH (08:29)
[2020-12-24] MEDS: methylPREDNISolone 4 MG TAB TAPER PO SCH (08:29)
--- NOTE | 2020-12-24 08:48 | US ---
EXAMINATION TYPE: US chest DATE OF EXAM: 12/24/2020 COMPARISON: Chest x-ray earlier today CLINICAL HISTORY: Right pleural effusion/abscess. Right pleural effusion/abscess per order. TECHNIQUE: Targeted ultrasound of the posterior lower bilateral hemithoraces EXAM MEASUREMENTS: Right Pleural Effusion pocket size: *Complex fluid pocket visualized. Internal echoes seen. 8.8 cm Right skin surface to fluid distance: 3.7 cm Left Pleural Effusion pocket size: Small fluid pocket seen with lung tissue in image, not marked. Right side marked for possible thoracentesis outside the dept. Complex fluid seen. Left side NOT marked for possible thoracentesis outside the dept. Pulmonologists are able to review the images in the patient?s EMR. Moderate size nonsimple fluid collection with internal echoes. Suspect pus or internal infection. Sma ll left-sided more simple pleural effusion. IMPRESSIONS: As above. Findings correlate with same day x-ray.
[2020-12-24] MEDS ORDERED: hydrALAZINE HCL 25 MG TAB PO SCH (09:00)
[2020-12-24] MEDS ORDERED: hydrALAZINE HCL 25 MG TAB PO STA (10:01)
--- NOTE | 2020-12-24 10:59 | P.PN ---
Subjective 55-year-old male who presents emergency pertinent past medical history significant for cardiomyopathy hypertension high cholesterol and recently quit smoking. Patient comes in stating 5 AM this morning he was having severe left- sided chest pain. Patient denies any radiation. Patient states he is somewhat short of breath per patient denies any diaphoretic episodes. Patient states the pain never goes away but it does get worse and get better. Patient denies any nausea. Patient denies abdominal pain patient denies any vomiting. Patient de nies any recent fevers or chills per patient states he does have an upper respiratory infection recently and he was seen in emergency department. Patient states she was negative for COVID. CT of his aorta to rule out dissection. CT was done and showed no dissection. CT did show possibility of a pulmonary abscess in the right lower lung. EKG shows normal sinus rhythm at 73 bpm MT interval 160 QRS is under QT interval 370 QTC is 416. Patient's EKG shows some ST segment elevation in the anterior leads V1 and V2 and V3. Patient has T-wave abnormalities in the precordial leads V4 V5 and V6 as well as inferior leads which were also seen on previous EKG. A STEMI overhead was called. Patient received 1 mg of Ativan and nitroglycerin and aspirin immediately upon arrival in the emergency department. Patient was evaluated by cardiology in the ED and was taken to [facility] Subjective: 12/22/2020 This is a pleasant 55 -[place] male with multiple medical problems presents with respiratory distress. Risks patient was thought to have based on abnormal EKG however cardiac cath showing non-obstructive coronary artery disease. Patient found mostly his symptoms, from right pneumonia and right lung abscess. Is still in respiratory distress and tachypneic because of his infection. He is breathing fast 30s. Rest of vitals are stable. WBC is elevated at 24. Liver enzymes mildly elevated. Which are rest of labs are unremarkable. Poorcalcitonin elevated at 1.27. Thoracic aortic CT is negative for dissection he has ascending aortic aneurysm of 4.1 cm right lung abscess about 6.3 cm. He is currently kept on normal saline at 75, Zosyn and IV vancomycin 12/23/20 Patient is still complaining of from dyspnea and pain on the right side of the chest. His states that Dilaudid 0.5 mg is not enough and clots increased to 1 mg He still somewhat tachypneic but slightly better compared to yesterday. Patient is moderate respiratory distress. Other vitals are stable. WBC is pending today. Rest of labs are unremarkable. Creatinine is normal at 0.8. The patient remains on Zosyn, IV vancomycin and normal saline at 75 mL/h, also Medrol Dosepak added today. 12/24/2020 Patient chest pain is feeling better after increasing his Dilaudid 1 mg. However he still dyspneic with a breathing rate around 22 but with good oxygen saturation. With a chest x-ray and ultrasound showing worsening right more than left pleural effusion with 8.8 cm pocket on the right side. His creatinine is normal. Liver enzymes are better. Blood pressure is elevated 187/104. Hydralazine is added. Also he is on Medrol Dosepak. His antibiotics were adjusted to Unasyn and IV vancomycin. Also he is on normal saline at 75 mL/h. Objective - Vital Signs Vital signs: Vital Signs Temp 97.7 F 12/24/20 07:38 Pulse 79 12/24/20 10:00 Resp 24 12/24/20 10:00 BP 187/104 12/24/20 10:00 Pulse Ox 96 12/24/20 10:00 Intake & Output 12/23/20 12/24/20 12/24/20 18:59 06:59 18:59 Intake Total 1020 236 Output Total 200 Balance 820 236 Weight 93 kg Intake: Oral 1020 236 Output: Urine 200 - Exam GENERAL: The patient is alert and oriented x3, not in any acute distress. Well developed, well nourished. HEENT: Pupils are round and equally reacting to light. EOMI. No scleral icterus. No conjunctival pallor. Normocephalic, atraumatic. No pharyngeal erythema. No thyromegaly. CARDIOVASCULAR: S1 and S2 present. No murmurs, rubs, or gallops. -PULMONARY: Chest is clear to auscultation, no wheezing or crackles. Tachypneic ABDOMEN: Soft, nontender, nondistended, normoactive bowel sounds. No palpable organomegaly. MUSCULOSKELETAL: No joint swelling or deformity. EXTREMITIES: No cyanosis, clubbing, or pedal edema. NEUROLOGICAL: Gross neurological examination did not reveal any focal deficits. SKIN: No rashes. no petechiae. - Labs CBC & Chem 7: 12/22/20 06:54 12/23/20 08:53 Labs: Abnormal Lab Results - Last 24 Hours (Table) 12/23/20 Range/Units 08:53 Sodium 133 L (137-145) mmol/L Carbon Dioxide 20 L (22-30) mmol/L Glucose 158 H (74-99) mg/dL Total Bilirubin 1.7 H (0.2-1.3) mg/dL ALT 68 H (4-49) U/L Total Protein 5.8 L (6.3-8.2) g/dL Albumin 2.7 L (3.5-5.0) g/dL Microbiology - Last 24 Hours (Table) 12/21/20 21:00 Gram Stain - Final Sputum Sputum Culture - Final 12/23/20 15:00 Gram Stain - Preliminary Sputum Sputum Culture - Preliminary 12/21/20 12:00 Blood Culture - Preliminary Blood No Growth after 48 hours Assessment and Plan Assessment: Right lung abscess 6.3 cm in diameter. Right side pneumonia, with the right more than left pleural effusion Ascending aortic aneurysm 4.1 cm Sepsis secondary to above Plan: This is a pleasant 55 years old male presents with right lung abscess and pneumonia Continue with IV vancomycin and Unasyn Follow-up blood cultures. Follow-up sputum culture Continue gentle hydration Pulmonary and infectious disease consult Labs and medication were reviewed.. Continue same treatment. Continue with symptomatic treatment. Resume home medication. Monitor lytes and vitals. DVT and GI prophylaxis. Further recommendationsas per clinical course of the patient DVT prophylaxis: Subcutaneous heparin GI Prophylaxis: Pepcid Prognosis is guarded
[2020-12-24] MEDS: SYMBICORT 160-4.5 MCG INHALER INHALATION SCH ×2 (11:15→19:39)
--- NOTE | 2020-12-24 12:44 | CDI ---
Documentation Clarification Form Date: 12/24/2020 12:40 PM From: Raquel Phillips RN CCDS Admit Date: 12/21/2020 09:27:00 AM Patient Name: Joey Houser Visit Number: [id number] Discharge Date: ATTENTION: The Clinical Documentation Specialists (CDI) and [facility] Coding Staff appreciate your assistance in clarifying documentation. Please respond to the clarification below the line at the bottom and electronically sign. The CDI & [facility] Coding staff will review the response and follow-up if needed. Please note: Queries are made part of the Legal Health Record. If you have any questions, please contact the author of this message via ITS. Dr. Bonilla E Sheet Your patient has the documented diagnosis of unspecified Heart Failure 12/21 H&P, additional information regarding the type, acuity of Heart Failure is requested. History/Risk Factors: 55-year-old male presents to the ED with severe left chest pain. Medical History: Cardiomyopathy, HTN, Heart Failure and smoking. Clinical Indicators: Home Medications: 12/21 H&P Coreg 25mg PO BID, Lasix 20mg PO Daily. VS/Pulse OX: B/P 135/84, HR 74, Temp 98.0F, RR 18, 95% RA BNP: 12/21 475 Echocardiogram Results: 12/22 Severe concentric left ventricular hypertrophy. EF 55-60%. Mild aortic regurgitation. Mild mitral regurgitation. Mild tricuspid regurgitation. Chest X Ray: 12/21 New mild cardiomegaly with mild central vascular congestion. Treatment: 12/21 to present Coreg 12.5mg PO BID, 12/24 Hydralazine 25mg PO Once Stat, 12/24 Hydralazine 25mg PO BID d/cd and changed to Hydralazine 50mg BID, 12/22 to current Valsartan 80mg PO Daily. In your professional opinion, can you please clarify the acuity and type of CHF if known? [ ] Chronic Diastolic Heart Failure (preserved EF) [ ] Chronic Diastolic Heart Failure ruled out [ ] Other, please specify [ ] Unable to determine (Template Last Revised: April 2020) CHF is not suspected now MTDD
--- NOTE | 2020-12-24 13:19 | P.PN ---
Subjective Progress Note Date: 12/24/20 Principal diagnosis: Right lung abscess, pneumonia 55-year-old male patient is presenting today with extensive right-sided chest wall pain radiating to his back which has some pleuritic in nature. The patient's had a voltage criteria of LVH on his EKG. He was taken to catheter ization and the cardiac catheterization do not to be within normal limits. A CT angiogram of the chest and the thoracic aorta was done and the CT angiogram showed the possibility of a right lower lobe lung abscess measuring 6.3 cm in size in addition to a right-sided pleural effusion which was small. The ascending aorta was measuring 4.1 cm in size. The patient has cardiomegaly. Pulmonary consultation was requested accordingly. Currently is on oxygen on 2 L. Is quite uncomfortable and is having pain along his lites side of the chest and he is unable to take a deep breath. White cell count of 14.7. D-dimer is at 2.34. Creatinine is at 1.3. Troponins are negative. ProBNP level is at 475. Noted the patient was in the emergency department on 12/15/2020. At that time he came in with five-day history of shortness of breath and chills and body aches. He was seen by the emergency department staff and a chest x-ray was given at that time on 12/15/2020 of the chest x-ray showed no significant acute abnormality. There was a suspicious right basilar infiltrate. At that point, the patient was given Zithromax and the patient was given a 5 day course of prednisone 20 mg and he was discharged home. Over the past week, the patient continued to be symptomatic and short of breath and he was not bringing up much sputum. No hemoptysis. His condition got worse and for that reason he presented to the hospital. Note that around 2 weeks ago, he was hospitalized in [place] for an RSV infection of the lung and COPD exacerbation. He is a chronic smoker and he has [id number] smoking history and he quit smoking in September 2020. He is known to have COPD. Other comorbid conditions include hypertension, hyperlipidemia, hypertensive cardiomyopathy and previous history of depression. No history of any substance abuse. Reevaluated today on 12/22/2020, patient remains on the cardiac floor, continues to have pain especially upon taking a deep breath, pain is mostly on the right s reese/right base. Patient was seen yesterday by Dr. Johnston, and the workup seems to be mostly consistent with right lung abscess and right lower lobe pneumonia. Patient remains on antibiotics. Including vancomycin and Zosyn. Will recommend infectious disease consultation on this patient.. He is to have leukocytosis with WBC count of 24.2 hemoglobin 11.9. Electrolytes are normal renal profile is normal. The patient is seen today 12/23/2020 in follow-up on the selective care unit. He is currently resting fairly comfortably in bed. Still having some right- sided chest discomfort. Pain on inhalation. Blood culture pending. Sputum culture pending. Sodium 133. Potassium 4.7. Creatinine 0.85. Vancomycin trough 9.9. He remains on vancomycin and Zosyn. Continued on Symbicort and Du oNeb inhalations. 0.9 normal saline at 75 ML's per hour. The patient is seen today 12/24/2020 in follow-up on the selective care unit. He is awake and alert in no acute distress. Resting in bed. Maintaining O2 saturations in the mid 90s on 2 L/m per nasal cannula. He's been afebrile. Blood and sputum cultures are pending. Today's chest x-ray showed significant increase in the fluid of the right lung. Ultrasound of the chest reveals an 8.8 cm pocket however the fluid is non-simple with internal echoes. Pus or internal infection is suspected. Small left-sided pleural effusion. He remains on vancomycin and Unasyn. Remains on bronchodilators. Objective - Vital Signs Vital signs: Vital Signs Temp 97.6 F 12/24/20 11:33 Pulse 79 12/24/20 11:33 Resp 24 12/24/20 11:33 BP 162/92 12/24/20 11:33 Pulse Ox 95 12/24/20 11:33 Intake & Output 12/23/20 12/24/20 12/24/20 18:59 06:59 18:59 Intake Total 1020 236 Output Total 200 Balance 820 236 Weight 93 kg Intake: Oral 1020 236 Output: Urine 200 - Exam Gen. appearance Pleasant 55-year-old male patient, mild degree of distress mainly complaining of pain and inability to take a deep breath. He is currently on 2 L of oxygen by nasal cannula. He is not using accessory muscles of breathing. Head exam was generally normal. There was no scleral icterus or corneal arcus. Mucous membranes were moist. Neck was supple and without jugular venous distension, thyromegaly, or carotid bruits. Carotids were easily palpable bilaterally. There was no adenopathy. Lungs sounds are diminished bilaterally right greater than left as the patient is unable to take a full breath. There is some crackles in lung bases, right greater than left. No wheezing. Cardiac exam revealed the PMI to be normally situated and sized. The rhythm was regular and no extrasystoles were noted during several minutes of auscultation. The first and second heart sounds were normal and physiologic splitting of the second heart sound was noted. There were no murmurs, rubs, clicks, or gallops. Abdominal exam revealed normal bowel sounds. The abdomen was soft, non-tender, and without masses, organomegaly, or appreciable enlargement of the abdominal aorta. Extremities show adequate and symmetrical pulses. The patient's right radial access is within normal limits and the patient has no hematoma involved. Examination of the skin revealed no evidence of significant rashes, suspicious appearing nevi or other concerning lesions. Neurologically, the patient is awake and alert and the patient does not have any focal neurological deficit. Cranial nerves are essentially intact. - Labs CBC & Chem 7: 12/22/20 06:54 12/23/20 08:53 Labs: Microbiology - Last 24 Hours (Table) 12/21/20 21:00 Gram Stain - Final Sputum Sputum Culture - Final 12/23/20 15:00 Gram Stain - Preliminary Sputum Sputum Culture - Preliminary 12/21/20 12:00 Blood Culture - Preliminary Blood No Growth after 48 hours Assessment and Plan Assessment: 1 Right lower lobe pneumonia pneumonia complicated by development of a right lung abscess and right-sided pleural effusion. He's been initiated on v ancomycin and Unasyn. Today's ultrasound reveals an 8.8 cm pocket that is non- simple and has internal echoes noted. Suspect possible or internal infection. 2 Acute hypoxic respiratory failure secondary to above 3 Pleurisy and chest pain and shortness of breath secondary to above 4 Leukocytosis 5 Hypertensive cardiomyopathy 6 Normal coronary angiogram 7 Hyperlipidemia 8 COPD Plan: The patient was seen and evaluated by Dr. Nash Chest x-ray and ultrasound reviewed Consult to interventional radiology for pigtail catheter placement Await fluid culture results Consult to cardiothoracic services for lung abscess Currently on vancomycin and now Unasyn Titrate the FiO2 as tolerated We will continue to follow I, the cosigning physician, performed a history & physical examination of the patient. Lungs sounds with crackles in the posterior bases right greater than le ft, diminished right lung base. Maintaining good O2 saturations in the 90s on 2 L/m per nasal. I discussed the assessment and plan of care with my nurse practitioner, Katty Teixeira. I attest to the above note as dictated by her.
--- NOTE | 2020-12-24 16:56 | P.GSCN ---
History of Present Illness Consult date: 12/24/20 Reason for Consult: Lung abscess Requesting physician: Rivka Nash History of present illness: This is a 55-year-old gentleman who follows on an outpatient basis with for primary care. He has a previous medical history of cardiomyopathy, COPD, previous tobacco dependence with recent smoking cessation and September 2020, h ypertension, hyperlipidemia, depression, daily EtOH use, and a recent RSV infection. This gentleman presented to [facility] emergency room on 12/21/2020 with complaints of significant right-sided chest wall pain with radiation to his back as well as significant shortness of breath. A study was called due to ST elevation on his EKG. Prior to being brought to the [facility] he was taken for CTA of the chest to rule out aortic dissection, which was successfully ruled out but did show right lower lobe lung abscess and right- sided pleural effusion. Heart catheterization was completed demonstrating no obstructive coronary artery disease. The patient was admitted for further evaluation and treatment with consultation placed to pulmonology. The patient was started on IV antibiotics and bronchodilators. Infectious disease was also consulted to guide antibiotic usage. Sputum culture from December 21 was negative, sputum culture from December 23 is still preliminary. Blood cultures drawn January 17 are negative to date. Procalcitonin was 1.27. The patient does have leukocytosis, initial WBC 14.7, elevating to 24.2. He has remained afebrile. Of note the patient was seen in the emergency department approximately a week ago with 5 day history of shortness of breath, chills, and body aches. Chest x-ray was completed at that time demonstrating no acute abnormality although there was a suspicious right basilar infiltrate. He was given Zithromax and 5 day prednisone course and discharged home. He continued to be symptomatic and shortness of breath, that combined with the right-sided chest pain prompted his current emergency room visit. Chest ultrasound was completed today demonstrating right-sided 8.8 cm complex fluid pocket with internal echoes seen. Due to the suspicion for abscess consultation was placed to Dr. Bain from cardiothoracic surgery for recommendations. Review of Systems Review of systems is negative except as noted in HPI - Constitutional Reports chills - Cardiovascular Reports as per HPI, Reports chest pain, Reports dyspnea on exertion, Reports shortness of breath Past Medical History Past Medical History: Heart Failure, COPD, Hyperlipidemia, Hypertension Additional Past Medical History / Comment(s): cardiomyopathy History of Any Multi-Drug Resistant Organisms: None Reported Past Surgical History: No Surgical Hx Reported Past Psychological History: Depression Smoking Status: Former smoker Past Alcohol Use History: Daily Past Drug Use History: None Reported Medications and Allergies Home Medications Medication Instructions Recorded Confirmed Type Albuterol Inhaler [Ventolin Hfa 2 puff INHALATION RT-Q4H PRN 12/21/20 12/21/20 History Inhaler] Atorvastatin [Lipitor] 80 mg PO DAILY 12/21/20 12/21/20 History Budesonide/Formoterol Fumarate 2 puff INHALATION RT-BID 12/21/20 12/21/20 History [Symbicort 160-4.5 Mcg Inhaler] Carvedilol [Coreg] 25 mg PO BID 12/21/20 12/21/20 History Furosemide [Lasix] 20 mg PO DAILY 12/21/20 12/21/20 History Ibuprofen [Motrin] 800 mg PO AC-TID 12/21/20 12/21/20 History Ipratropium-Albuterol Nebulize 1.5 ml INHALATION RT-QID 12/21/20 12/21/20 History [Duoneb 0.5 mg-3 mg/3 ml Soln] Valsartan [Diovan] 80 mg PO DAILY 12/21/20 12/21/20 History buPROPion SR [Wellbutrin SR] 150 mg PO BID 12/21/20 12/21/20 History Allergies Allergy/AdvReac Type Severity Reaction Status Date / Time acetaminophen [From Percocet] Allergy Unknown Verified 12/21/20 08:42 azithromycin Allergy Unknown Verified 12/21/20 08:42 erythromycin base Allergy Unknown Verified 12/21/20 08:42 oxycodone [From Percocet] Allergy Unknown Verified 12/21/20 08:42 Surgical - Exam Vital Signs Temp Pulse Resp BP Pulse Ox 98.0 F 74 18 135/84 95 12/21/20 08:14 12/21/20 08:14 12/21/20 08:14 12/21/20 08:14 12/21/20 08:14 CONSTITUTIONAL: Awake and alert, appears short of breath although just got back from the shower, per nursing was not this short of breath earlier EYES: Pupils equal, round, reactive to light, normal ocular movement ENT: Moist mucous membranes without oral lesions present NECK: No masses, no bruits, trachea midline RESPIRATORY: Lungs sounds diminished bilaterally, right greater than left. Respirations shallow, labored. Currently on 2 L nasal cannula with oxygen saturation 94%. CARDIOVASCULAR: S1, S2 present. Regular rate and rhythm, sinus rhythm on telemetry. Palpable peripheral pulses bilaterally. No edema present GASTROINTESTINAL: Abdomen soft, nontender, nondistended without masses or organomegaly noted. There is no rebound or guarding present. Active bowel sounds present 4 quadrants. GENITOURINARY: Deferred INTEGUMENTARY: Skin is warm and dry with evidence of good perfusion. NEUROLOGIC: Cranial nerves II through XII intact, normal coordination, no obvious motor or sensory deficits, speech is normal MUSKULOSKELETAL: Able to move all extremities, strength equal bilaterally, normal posture PSYCHIATRIC: Alert and oriented to person place and time, appropriate affect, intact judgment and insight Results - Labs 12/22/20 06:54 12/23/20 08:53 Microbiology - Last 24 Hours (Table) 12/21/20 12:00 Blood Culture - Preliminary Blood No Growth after 72 hours 12/21/20 21:00 Gram Stain - Final Sputum Sputum Culture - Final 12/23/20 15:00 Gram Stain - Preliminary Sputum Sputum Culture - Preliminary - Imaging Chest x-ray: report reviewed, image reviewed CT scan - chest: report reviewed, image reviewed Assessment and Plan Assessment: 1. Right lower lobe pneumonia, present on admission, right lung abscess as well as right pleural effusion 2. Chest pain, no obstructive coronary artery disease on heart catheterization 3. Leukocytosis 4. Shortness of breath 5. History of cardiomyopathy 6. COPD 7. Previous tobacco dependence with recent smoking cessation in September 2020 8. Hypertension 9. Hyperlipidemia 10. Depression 11. Daily EtOH use 12. Recent RSV infection Plan: The patient was seen and examined at the bedside. Chart/diagnostics reviewed. The case will be discussed in detail with Dr. Bain. At this time continue current management with IV antibiotics, bronchodilators. Encourage incentive spirometry use. Wean O2 as tolerated. We'll review daily x-rays, labs. More recommendations to follow once Dr. Bain has evaluated the patient. Thank you Dr. Nash for this consult. We look forward to working with you in the care of your patient Time with Patient: Greater than 30
[2020-12-24] MEDS: hydrALAZINE HCL 50 MG TAB PO SCH (20:13)
--- NOTE | 2020-12-24 23:31 | PN ---
PROGRESS NOTE DATE OF SERVICE: 12/24/2020 REASON FOR FOLLOWUP: Lung abscess and pneumonia. INTERVAL HISTORY: Patient is afebrile. Still complaining of chest pain, shortness of breath. He did have a cough, not bringing up any sputum. No nausea, no vomiting. No abdominal pain. No diarrhea. PHYSICAL EXAMINATION: Blood pressure 171/100 with a pulse of 81. Temperature 97.9. He is 96% on 2 L nasal cannula. General description is a middle-aged male lying in bed in no distress. Respiratory system: Unlabored breathing, coarse breath sounds bilaterally. No wheeze. Heart S1, S2 regular rate and rhythm. Abdomen soft, no tenderness. LABS: Hemoglobin is 11.9, white count 4.2, creatinine 0.85. DIAGNOSTIC IMPRESSION AND PLAN: Patient with right sided pneumonia with lung abscess. CT surgery has been consulted. Await further recommendations. Patient to continue with Unasyn and Vancomycin adjusting antibiotic on the basis of cultures. Continue supportive care. MMODL / IJN: [id number] /
[2020-12-25] MEDS: HYDROmorphone 0.5 MG/0.5 ML SYRINGE IVP PRN ×4 (02:36→15:21)
[2020-12-25] MEDS: AMPICILLIN-SULBACTAM 3 GM in SODIUM CHLORIDE 0.9% 100 ML IVPB SCH ×4 (06:27→23:14)
[2020-12-25] MEDS: SODIUM CHLORIDE 0.9% 1,000 ML IV SCH ×2 (06:27→18:35)
[2020-12-25] MEDS: carvediloL 12.5 MG TAB PO SCH ×2 (06:27→16:57)
[2020-12-25] MEDS ORDERED: VANCOMYCIN TROUGH DUE 1 EACH MISC MISCELLANE ONE (07:00)
[2020-12-25] MEDS: ASPIRIN 81 MG PO SCH (07:31)
[2020-12-25] MEDS: HEPARIN SODIUM,PORCINE/PF 5,000 UNIT/0.5 ML SYRINGE SQ SCH ×2 (07:32→20:56)
[2020-12-25] MEDS: SYMBICORT 160-4.5 MCG INHALER INHALATION SCH ×2 (07:45→20:39)
[2020-12-25] MEDS: IPRATROPIUM-ALBUTEROL 3 ML NEB INHALATION SCH ×4 (07:45→20:40)
[2020-12-25] MEDS: ATORVASTATIN 20 MG TAB PO SCH (07:59)
[2020-12-25] MEDS: buPROPion SR 150 MG TABLET.ER PO SCH ×2 (07:59→22:32)
[2020-12-25] MEDS: hydrALAZINE HCL 50 MG TAB PO SCH ×2 (07:59→20:56)
[2020-12-25] MEDS: VALSARTAN 80 MG TAB PO SCH (07:59)
[2020-12-25] MEDS: methylPREDNISolone 4 MG TAB TAPER PO SCH (07:59)
[2020-12-25] MEDS: VANCOMYCIN 1,500 MG in SODIUM CHLORIDE 0.9% 250 ML IVPB SCH ×3 (07:59→23:14)
[2020-12-25] MEDS: FAMOTIDINE 20 MG TAB PO SCH ×2 (07:59→20:56)
[2020-12-25 08:20] LABS: ALT 54 U/L (4-49); AST 44 U/L (17-59); African American GFR (CKD) >90 (>60 ml/min/1.73 sqM); Albumin 2.7 g/dL (3.5-5.0); Alkaline Phosphatase 103 U/L (38-126); Anion Gap 10 mmol/L; Bilirubin, Delta 0.4 mg/dL (0.0-0.2); Bilirubin,Unconjugated 0.4 mg/dL (0.0-1.1); Blood Urea Nitrogen 17 mg/dL (9-20); Carbon Dioxide 26 mmol/L (22-30); Chloride 103 mmol/L (98-107); Glucose 106 mg/dL (74-99); Non-African American GFR(CKD) >90 (>60 ml/min/1.73 sqM); Sodium 139 mmol/L (137-145); Total Bilirubin 0.8 mg/dL (0.2-1.3); Total Protein 5.9 g/dL (6.3-8.2)
[2020-12-25 09:10] LABS: Calcium 8.8 mg/dL (8.4-10.2)
--- NOTE | 2020-12-25 10:09 | P.PN ---
Subjective Progress Note Date: 12/25/20 Principal diagnosis: Right lower lobe pneumonia, present on admission, right lung abscess as well as right pleural effusion, chest pain without obstructive coronary artery disease on heart catheterization, leukocytosis, shortness of breath. Previous medical history of cardiomyopathy, COPD, previous tobacco dependence with recent smoking cessation in September 2020, hypertension, hyperlipidemia, depression, daily EtOH use, recent RSV infection The patient is currently lying in bed in no acute distress. Denies chest pain currently, does still continue to have shortness of breath with any exertion. Remains on IV antibiotics per infectious disease. Pigtail catheter to be inse rted into right-sided pleural effusion today for lytic instillation to drain fluid which will be sent for cytology and culture. Objective - Vital Signs Vital signs: Vital Signs Temp 97.7 F 12/25/20 08:00 Pulse 82 12/25/20 08:00 Resp 16 12/25/20 08:00 BP 158/85 12/25/20 08:00 Pulse Ox 98 12/25/20 08:00 Intake & Output 12/24/20 12/25/20 12/25/20 18:59 06:59 18:59 Intake Total 356 660 Output Total 600 Balance 356 60 Weight 94.4 kg Intake: Oral 356 660 Output: Urine 600 Other: # Voids 1 - Exam CONSTITUTIONAL: Awake and alert, appears comfortable RESPIRATORY: Lungs sounds diminished bilaterally, right greater than left. Respirations even, non-labored as he is laying in bed. Currently on 2 L nasal cannula with oxygen saturation 98%. CARDIOVASCULAR: S1, S2 present. Regular rate and rhythm, sinus rhythm on telemetry. Palpable peripheral pulses bilaterally. No edema present GASTROINTESTINAL: Abdomen soft, nontender, nondistended without masses or organomegaly noted. There is no rebound or guarding present. Active bowel sounds present 4 quadrants. GENITOURINARY: Continues to void INTEGUMENTARY: Skin is warm and dry with evidence of good perfusion. NEUROLOGIC: Cranial nerves II through XII intact, normal coordination, no obvious motor or sensory deficits, speech is normal MUSKULOSKELETAL: Able to move all extremities, strength equal bilaterally, normal posture PSYCHIATRIC: Alert and oriented to person place and time, appropriate affect, intact judgment and insight - Allied health notes Allied health notes reviewed: nursing - Labs CBC & Chem 7: 12/22/20 06:54 12/25/20 07:21 Labs: Abnormal Lab Results - Last 24 Hours (Table) 12/25/20 Range/Units 07:21 Glucose 106 H (74-99) mg/dL Delta Bilirubin 0.4 H (0.0-0.2) mg/dL ALT 54 H (4-49) U/L Total Protein 5.9 L (6.3-8.2) g/dL Albumin 2.7 L (3.5-5.0) g/dL Microbiology - Last 24 Hours (Table) 12/21/20 12:00 Blood Culture - Preliminary Blood No Growth after 72 hours 12/21/20 21:00 Gram Stain - Final Sputum Sputum Culture - Final 12/23/20 15:00 Gram Stain - Preliminary Sputum Sputum Culture - Preliminary Assessment and Plan Assessment: 1. Right lower lobe pneumonia, present on admission, right lung abscess as well as right pleural effusion 2. Chest pain, no obstructive coronary artery disease on heart catheterization 3. Leukocytosis 4. Shortness of breath 5. History of cardiomyopathy 6. COPD 7. Previous tobacco dependence with recent smoking cessation in September 2020 8. Hypertension 9. Hyperlipidemia 10. Depression 11. Daily EtOH use 12. Recent RSV infection, lab test for RSV negative 12/15/20, also Covid/Influenza A & B negative Plan: 1. Anticipate placement of right sided pigtail catheter by IR today with fluid to be sent for culture and cytology. We will instill Alteplase/Dornase through pigtail daily to enhance drainage of pleural effusion 2. Continue antibiotics per ID recommendations and based on sensitivites once pleural fluid has been sent 3. Wean O2 as tolerated. Encourage incentive spirometry use. Bronchodil atorsl, steroids per pulmonology 4. Will review daily labs, CXR 5. Increase activity as tolerated 6. Medical management of other comorbidities per primary care 7. More recommendations to follow Time with Patient: Greater than 30
[2020-12-25] MEDS ORDERED: FUROSEMIDE 40 MG TAB PO STA (12:06)
[2020-12-25] MEDS: amLODIPine 5 MG TAB PO SCH (12:15)
--- NOTE | 2020-12-25 13:51 | P.PN ---
Subjective 55-year-old male who presents emergency pertinent past medical history significant for cardiomyopathy hypertension high cholesterol and recently quit smoking. Patient comes in stating 5 AM this morning he was having severe left- sided chest pain. Patient denies any radiation. Patient states he is somewhat short of breath per patient denies any diaphoretic episodes. Patient states the pain never goes away but it does get worse and get better. Patient denies any nausea. Patient denies abdominal pain patient denies any vomiting. Patient de nies any recent fevers or chills per patient states he does have an upper respiratory infection recently and he was seen in emergency department. Patient states she was negative for COVID. CT of his aorta to rule out dissection. CT was done and showed no dissection. CT did show possibility of a pulmonary abscess in the right lower lung. EKG shows normal sinus rhythm at 73 bpm HI interval 160 QRS is under QT interval 370 QTC is 416. Patient's EKG shows some ST segment elevation in the anterior leads V1 and V2 and V3. Patient has T-wave abnormalities in the precordial leads V4 V5 and V6 as well as inferior leads which were also seen on previous EKG. A STEMI overhead was called. Patient received 1 mg of Ativan and nitroglycerin and aspirin immediately upon arrival in the emergency department. 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 Risks patient was thought to have based on abnormal EKG however cardiac cath showing non-obstructive coronary artery disease. Patient found mostly his symptoms, from right pneumonia and right lung abscess. Is still in respiratory distress and tachypneic because of his infection. He is breathing fast 30s. Rest of vitals are stable. WBC is elevated at 24. Liver enzymes mildly elevated. Which are rest of labs are unremarkable. Poorcalcitonin elevated at 1.27. Thoracic aortic CT is negative for dissection he has ascending aortic aneurysm of 4.1 cm right lung abscess about 6.3 cm. He is currently kept on normal saline at 75, Zosyn and IV vancomycin 12/23/20 Patient is still complaining of from dyspnea and pain on the right side of the chest. His states that Dilaudid 0.5 mg is not enough and clots increased to 1 mg He still somewhat tachypneic but slightly better compared to yesterday. Patient is moderate respiratory distress. Other vitals are stable. WBC is pending today. Rest of labs are unremarkable. Creatinine is normal at 0.8. The patient remains on Zosyn, IV vancomycin and normal saline at 75 mL/h, also Medrol Dosepak added today. 12/24/2020 Patient chest pain is feeling better after increasing his Dilaudid 1 mg. However he still dyspneic with a breathing rate around 22 but with good oxygen saturation. With a chest x-ray and ultrasound showing worsening right more than left pleural effusion with 8.8 cm pocket on the right side. His creatinine is normal. Liver enzymes are better. Blood pressure is elevated 187/104. Hydralazine is added. Also he is on Medrol Dosepak. His antibiotics were adjusted to Unasyn and IV vancomycin. Also he is on normal saline at 75 mL/h. 12/25/2020 Patient breathing better today and, actually his breathing rate is 15-17 per day after it wasn't 20s and 30s the last couple days. However he still complaining of from dyspnea and difficulty breathing. Surgery team are planning for right sided pigtail catheter by IR today with fluid to be sent for culture and cytology. and they will use Alteplase with p igtail daily for drainage of pleural effusion. Labs are unremarkable He remains on IV vancomycin and Unasyn and normal saline at 75 mL/h, also I and steroids and Norvasc is added for better control of blood pressure Objective - Vital Signs Vital signs: Vital Signs Temp 98.2 F 12/25/20 11:37 Pulse 88 12/25/20 12:25 Resp 17 12/25/20 11:37 BP 161/104 12/25/20 11:37 Pulse Ox 95 12/25/20 11:37 Intake & Output 12/24/20 12/25/20 12/25/20 18:59 06:59 18:59 Intake Total 356 660 Output Total 600 Balance 356 60 Weight 94.4 kg Intake: Oral 356 660 Output: Urine 600 Other: # Voids 1 - Exam GENERAL: The patient is alert and oriented x3, not in any acute distress. Well developed, well nourished. HEENT: Pupils are round and equally reacting to light. EOMI. No scleral icterus. No conjunctival pallor. Normocephalic, atraumatic. No pharyngeal erythema. No thyromegaly. CARDIOVASCULAR: S1 and S2 present. No murmurs, rubs, or gallops. -PULMONARY: Chest is clear to auscultation, no wheezing or crackles. Tachypneic ABDOMEN: Soft, nontender, nondistended, normoactive bowel sounds. No palpable organomegaly. MUSCULOSKELETAL: No joint swelling or deformity. EXTREMITIES: No cyanosis, clubbing, or pedal edema. NEUROLOGICAL: Gross neurological examination did not reveal any focal deficits. SKIN: No rashes. no petechiae. - Labs CBC & Chem 7: 12/22/20 06:54 12/25/20 07:21 Labs: Abnormal Lab Results - Last 24 Hours (Table) 12/25/20 Range/Units 07:21 Glucose 106 H (74-99) mg/dL Delta Bilirubin 0.4 H (0.0-0.2) mg/dL ALT 54 H (4-49) U/L Total Protein 5.9 L (6.3-8.2) g/dL Albumin 2.7 L (3.5-5.0) g/dL Microbiology - Last 24 Hours (Table) 12/21/20 12:00 Blood Culture - Preliminary Blood No Growth after 72 hours 12/21/20 21:00 Gram Stain - Final Sputum Sputum Culture - Final Assessment and Plan Assessment: Right lung abscess 6.3 cm in diameter. Right side pneumonia, with the right more than left pleural effusion Ascending aortic aneurysm 4.1 cm Sepsis secondary to above Plan: This is a pleasant 55 years old male presents with right lung abscess and pneumonia Continue with IV vancomycin and Unasyn Follow-up blood cultures. Follow-up sputum culture Continue gentle hydration He will need pigtail tube the right lung abscess and alteplase instillations to help with drainage Pulmonary and infectious disease consult Labs and medication were reviewed.. Continue same treatment. Continue with symptomatic treatment. Resume home medication. Monitor lytes and vitals. DVT and GI prophylaxis. Further recommendationsas per clinical course of the patient DVT prophylaxis: Subcutaneous heparin GI Prophylaxis: Pepcid Prognosis is guarded
--- NOTE | 2020-12-25 14:07 | US ---
Ultrasound-guided therapeutic and diagnostic thoracentesis DATE OF EXAM: 12/25/2020 CLINICAL HISTORY: Right empyema request for right pleural fluid drainage catheter insertion. Patient also has history of pulmonary abscess. Case discussed with referring clinician. The request is for c atheter placement within the pleural space. The procedure was discussed with the patient. The risks, complications, benefits, and alternatives we re discussed and any questions were answered. Informed consent was obtained. The patient was placed supine on the ultrasound table and prepped and draped in the usual sterile fas hion. All elements of maximal barrier and sterile technique were utilized. Under ultrasound guidance, access into the pleural space was obtained, via the thoracentesis catheter system and direct ultrasound guidance.An 0.018 guidewire was placed through the needle. Conversion to a 0.035 system. There is placement of an old 0.035 guidewire and serial dilation to 8 Welsh with placement 8 Welsh drainage catheter. Sampl e was obtained which with appear to be a yellow and cloudy suspicious for infectious etiology such as empyema. The patient was stable throughout the procedure and remained stable upon discharge from Department of Radiology. Sample sent to pathology for analysis. IMPRESSION: 1. Successful ultrasound-guided right chest tube insertion for pleural effusion and possible empyema. .
--- NOTE | 2020-12-25 14:22 | XR ---
EXAMINATION TYPE: XR chest 1V portable DATE OF EXAM: 12/25/2020 CLINICAL HISTORY: Difficulty breathing and pneumonia progress study. Right-sided chest tube insertio n. TECHNIQUE: Single AP portable upright view of the chest is obtained. COMPARISON: Chest x-ray from one day earlier. FINDINGS: The osseous structures remain intact. Persistent small to moderate size left pleural effusion or fluid collection does not completely layer dependently. Fluid redemonstrated extending into the right minor fissure. Persistent right lung opac ity suggests atelectasis and/or infiltrate. Rounded contour along right heart border corresponding to suspected intrapulmonary abscess or cavitary lesion is better seen on CT versus x-ray. New Posterior percutaneous pigtail drainage catheter at this level. No new mediastinal shift. Small left pleural effusion with left basilar opacity. Stable mild cardiomegaly. IMPRESSION: New posterior medial right basilar percutaneous pigtail drainage catheter likely within pulmonary abscess or cavitary lesion. Persistent [id number] size right pleural effusion with d iffuse right lung edema and/or infiltrate. There is small left pleural effusion and associated left b asilar atelectasis and/or infiltrate.
--- NOTE | 2020-12-25 14:31 | P.PN ---
Subjective Progress Note Date: 12/25/20 Principal diagnosis: Right lung abscess, and pneumonia, and suspect empyema. 55-year-old male patient is presenting today with extensive right-sided chest wall pain radiating to his back which has some pleuritic in nature. The patient's had a voltage criteria of LVH on his EKG. He was taken to catheterization and the cardiac catheterization do not to be within normal limits. A CT angiogram of the chest and the thoracic aorta was done and the CT angiogram showed the possibility of a right lower lobe lung abscess measuring 6.3 cm in size in addition to a right-sided pleural effusion which was small. The ascending aorta was measuring 4.1 cm in size. The patient has cardiomegaly. Pulmonary consultation was requested accordingly. Currently is on oxygen on 2 L. Is quite uncomfortable and is having pain along his lites side of the chest and he is unable to take a deep breath. White cell count of 14.7. D-dimer is at 2.34. Creatinine is at 1.3. Troponins are negative. ProBNP level is at 475. Noted the patient was in the emergency department on 12/15/2020. At that time he came in with five-day history of shortness of breath and chills and body aches. He was seen by the emergency department staff and a chest x-ray was given at that time on 12/15/2020 of the chest x-ray showed no significant acute abnormality. There was a suspicious right basilar infiltrate. At that point, the patient was given Zithromax and the patient was given a 5 day course of p rednisone 20 mg and he was discharged home. Over the past week, the patient continued to be symptomatic and short of breath and he was not bringing up much sputum. No hemoptysis. His condition got worse and for that reason he presented to the hospital. Note that around 2 weeks ago, he was hospitalized in [place] for an RSV infection of the lung and COPD exacerbation. He is a chronic smoker and he has [id number] smoking history and he quit smoking in September 2020. He is known to have COPD. Other comorbid conditions include hypertension, hyperlipidemia, hypertensive cardiomyopathy and previous history of depression. No history of any substance abuse. Reevaluated today on 12/22/2020, patient remains on the cardiac floor, continues to have pain especially upon taking a deep breath, pain is mostly on the right side/right base. Patient was seen yesterday by Dr. Johnston, and the workup seems to be mostly consistent with right lung abscess and right lower lobe pneumonia. Patient remains on antibiotics. Including vancomycin and Zosyn. Will recommend infectious disease consultation on this patient.. He is to have leukocytosis with WBC count of 24.2 hemoglobin 11.9. Electrolytes are normal renal profile is normal The patient is seen today 12/23/2020 in follow-up on the selective care unit. He is currently resting fairly comfortably in bed. Still having some right- sided chest discomfort. Pain on inhalation. Blood culture pending. Sputum culture pending. Sodium 133. Potassium 4.7. Creatinine 0.85. Vancomycin trough 9.9. He remains on vancomycin and Zosyn. Continued on Symbicort and DuoNeb inhalations. 0.9 normal saline at 75 ML's per hour. The patient is seen today 12/24/2020 in follow-up on the selective care unit. He is awake and alert in no acute distress. Resting in bed. Maintaining O2 saturations in the mid 90s on 2 L/m per nasal cannula. He's been afebrile. Blood and sputum cultures are pending. Today's chest x-ray showed significant increase in the fluid of the right lung. Ultrasound of the chest reveals an 8.8 cm pocket however the fluid is non-simple with internal echoes. Pus or internal infection is suspected. Small left-sided pleural effusion. He remains on vancomycin and Unasyn. Remains on bronchodilators. Reevaluated today on 12/25/2020, patient is scheduled to undergo pigtail catheter placement for suspected empyema, secondary to right lower lobe pneumonia and lung. Discussed his situation with Dr. Frausto earlier today, and he is planning ultrasound-guided pigtail catheter placement to drain the right pleural effusion which is suspected to be empyema related unless for otherwise. I also discussed the patient's condition with thoracic surgery to consider alteplase injections after pigtail catheter placement. And the fluid seems to be loculated. Objective - Vital Signs Vital signs: Vital Signs Temp 98.2 F 12/25/20 11:37 Pulse 88 12/25/20 12:25 Resp 17 12/25/20 11:37 BP 161/104 12/25/20 11:37 Pulse Ox 95 12/25/20 11:37 Intake & Output 12/24/20 12/25/20 12/25/20 18:59 06:59 18:59 Intake Total 356 660 Output Total 600 Balance 356 60 Weight 94.4 kg Intake: Oral 356 660 Output: Urine 600 Other: # Voids 1 - Exam Physical Exam: Revealed 55-year-old male in no distress, on 2 L nasal cannula with O2 sat showed 95%. Head: Atraumatic, normocephalic. HEENT:[Neck is supple.] [No neck masses.] [No thyromegaly.] [No JVD.] Chest: Diminished breath sounds and dullness at the right base Cardiac Exam: [Normal S1 and S2, no S3 gallop, no murmur.] Abdomen: [Soft, nontender, no megaly, no rebound, no guarding, normal bowel sounds.] Extremities: [No clubbing, no edema, no cyanosis.] Neurological Exam: [No focal neurologic deficit.] Alert oriented 3. Psychiatric: Normal mood affect and normal mental status examination. Skin: No rashes. - Labs CBC & Chem 7: 12/22/20 06:54 12/25/20 07:21 Labs: Abnormal Lab Results - Last 24 Hours (Table) 12/25/20 Range/Units 07: Glucose 106 H (74-99) mg/dL Delta Bilirubin 0.4 H (0.0-0.2) mg/dL ALT 54 H (4-49) U/L Total Protein 5.9 L (6.3-8.2) g/dL Albumin 2.7 L (3.5-5.0) g/dL Microbiology - Last 24 Hours (Table) 12/21/20 12:00 Blood Culture - Preliminary Blood No Growth after 96 hours 12/21/20 21:00 Gram Stain - Final Sputum Sputum Culture - Final Assessment and Plan Assessment: 1 acute community-acquired right lower lobe pneumonia complicated with lung abscess and complicated pleural effusion and possible empyema. acute hypoxic respiratory failure secondary to above pleurisy and chest pain and shortness of breath secondary to above History of underlying COPD presently inactive. Hypertensive cardiomyopathy dyslipidemia Normal coronary angiogram. Recommendation: Discussed the patient's condition with the interventional radiologist, and he is scheduled to have a pigtail catheter placement today. Also discussed his condition with thoracic surgery may require alteplase injections in the pigtail catheter was then displaced. Continue antibiotics including Zosyn and vancomycin Continue pain management and pain control Continue IV fluids Continue updrafts Blood cultures are negative over the last 96 hours. Will culture fluid from the pigtail catheter/chest tube wasn't placed today. We'll continue to follow. Time with Patient: Less than 30
[2020-12-25 14:56] LABS: Total Protein 6.1 g/dL (6.3-8.2)
[2020-12-25 15:21] LABS: Basophils # (A) 0.1 k/uL (0-0.2); Basophils % (A) 0 %; Eosinophils % (A) 0 %; HCT 35.3 % (39.0-53.0); Hypochromasia Slight; Lymphocytes # (A) 0.8 k/uL (1.0-4.8); Lymphocytes % (A) 2 %; MCH 31.5 pg (25.0-35.0); MCHC 31.2 g/dL (31.0-37.0); MCV 100.9 fL (80.0-100.0); Macrocytosis Slight; Mean Platelet Volume 9.5; Monocytes # (A) 1.4 k/uL (0-1.0); Monocytes % (A) 3 %; Neutrophils # (A) 42.3 k/uL (1.3-7.7); Neutrophils % (A) 94 %; Platelet Count 323 k/uL (150-450); RBC 3.49 m/uL (4.30-5.90); RDW 13.6 % (11.5-15.5); WBC 44.9 k/uL (3.8-10.6)
[2020-12-25 16:52] LABS: Glucose,Whole Blood 233 mg/dL (75-99)
[2020-12-25 16:52] LABS: Appearance,BF Cloudy; Nucleated Cells, Body Fluid 12500 /uL; RBC, Body Fluid 375 /uL
[2020-12-25] MEDS: INSULIN ASPART (NovoLOG) 100 UNIT/ML VIAL SQ SCH ×2 (16:56→20:56)
[2020-12-25] MEDS: KETOROLAC 15 MG/ML 1 ML VIAL IVP PRN (16:57)
[2020-12-25] MEDS: CYCLOBENZAPRINE 10 MG TAB PO PRN (17:02)
[2020-12-25 18:01] LABS: Mononuclear WBC,Body Fluid 10 %; Polynuclear WBC,Body Fluid 90 %; Total Cells Counted,Body Fluid 100
[2020-12-25 20:29] LABS: Glucose,Whole Blood 143 mg/dL (75-99)
[2020-12-25] MEDS: HYDROmorphone 1 MG/ML 1 ML SYRINGE IVP PRN (20:58)
[2020-12-26 02:10] LABS: Total Protein, Body Fluid 4610 mg/dL
[2020-12-26] MEDS: KETOROLAC 15 MG/ML 1 ML VIAL IVP PRN ×4 (04:02→23:05)
[2020-12-26 06:00] LABS: Glucose, BF Source Pleural Fluid; Glucose, Body Fluid <2 mg/dL; LDH, Body Fluid Source Pleural Fluid
[2020-12-26] MEDS: INSULIN ASPART (NovoLOG) 100 UNIT/ML VIAL SQ SCH ×4 (06:18→20:54)
[2020-12-26 06:24] LABS: Glucose,Whole Blood 99 mg/dL (75-99)
--- NOTE | 2020-12-26 06:27 | PN ---
PROGRESS NOTE DATE OF SERVICE: 12/25/2020 FOLLOW UP: Pulmonary abscess. INTERVAL HISTORY: The patient is afebrile. The patient is status post radiology placement of chest tube and drainage of the abscess. Fluid has been sent for culture. Patient tolerated the procedure. He is breathing slightly comfortably. No vomiting. No abdominal pain or diarrhea. PHYSICAL EXAMINATION: Blood pressure is 152/78, pulse 73, temperature 98.2. He is 96% on 2 L nasal cannula. General description is a middle-aged male up in the bed in no distress. Respiratory system: Unlabored breathing, decreased intensity of the breath sounds. No wheeze. Heart S1, S2. Regular rate and rhythm. Abdomen soft, no tenderness. LABS: Hemoglobin is 11.1, white count 44.9, creatinine 0.69. Blood culture has been negative. The pleural fluid culture is pending. Did have an elevated white count of 12,500 with predominantly PMNs. DIAGNOSTIC IMPRESSION AND PLAN: Patient with pneumonia and lung abscess, status post chest tube placement and drainage of the abscess. Cultures will be followed. Continue with Unasyn and vancomycin. Discharge antibiotic based on the culture report. Continue supportive care. MMODL / IJN: [id number] /
[2020-12-26] MEDS: AMPICILLIN-SULBACTAM 3 GM in SODIUM CHLORIDE 0.9% 100 ML IVPB SCH ×4 (06:35→23:04)
[2020-12-26] MEDS: SODIUM CHLORIDE 0.9% 1,000 ML IV SCH ×2 (06:35→23:05)
[2020-12-26] MEDS: carvediloL 12.5 MG TAB PO SCH ×2 (06:35→17:18)
[2020-12-26 06:43] LABS: Basophils % (A) 0 %; Eosinophils % (A) 0 %; HCT 32.2 % (39.0-53.0); HGB 10.1 gm/dL (13.0-17.5); Lymphocytes # (A) 1.4 k/uL (1.0-4.8); Lymphocytes % (A) 6 %; MCH 31.2 pg (25.0-35.0); MCHC 31.2 g/dL (31.0-37.0); Mean Platelet Volume 7.8; Monocytes % (A) 4 %; Neutrophils # (A) 23.2 k/uL (1.3-7.7); Neutrophils % (A) 89 %; Platelet Count 413 k/uL (150-450); RBC 3.22 m/uL (4.30-5.90); RDW 13.2 % (11.5-15.5)
[2020-12-26] MEDS: SYMBICORT 160-4.5 MCG INHALER INHALATION SCH ×2 (07:53→20:15)
[2020-12-26] MEDS: IPRATROPIUM-ALBUTEROL 3 ML NEB INHALATION SCH ×4 (07:53→20:15)
[2020-12-26] MEDS: buPROPion SR 150 MG TABLET.ER PO SCH ×2 (08:05→20:54)
[2020-12-26] MEDS: amLODIPine 5 MG TAB PO SCH (08:05)
[2020-12-26] MEDS: FAMOTIDINE 20 MG TAB PO SCH ×2 (08:05→20:54)
[2020-12-26] MEDS: methylPREDNISolone 4 MG TAB TAPER PO SCH (08:05)
[2020-12-26] MEDS: VANCOMYCIN 1,500 MG in SODIUM CHLORIDE 0.9% 250 ML IVPB SCH ×3 (08:05→23:52)
[2020-12-26] MEDS: ASPIRIN 81 MG PO SCH (08:05)
[2020-12-26] MEDS: HEPARIN SODIUM,PORCINE/PF 5,000 UNIT/0.5 ML SYRINGE SQ SCH ×2 (08:05→20:54)
[2020-12-26] MEDS: ATORVASTATIN 20 MG TAB PO SCH (08:05)
[2020-12-26] MEDS: hydrALAZINE HCL 50 MG TAB PO SCH ×2 (08:05→20:54)
[2020-12-26] MEDS: VALSARTAN 80 MG TAB PO SCH (08:05)
[2020-12-26] MEDS ORDERED: ALTEPLASE 10 MG in SODIUM CHLORIDE 0.9% 50 ML IRRIGATION ONE (08:46)
[2020-12-26] MEDS ORDERED: DORNASE ALFA 5 MG in SODIUM CHLORIDE 0.9% 50 ML IRRIGATION ONE (08:46)
--- NOTE | 2020-12-26 08:53 | XR ---
EXAMINATION TYPE: XR chest 1V portable DATE OF EXAM: 12/26/2020 Comparison: 12/25/2020 Clinical History: 55-year-old male pleural effusion Findings: Heart borderline enlarged. Improving airspace opacity throughout the right lung. Interstitial changes remain. Small bilateral pleural effusions remain. Pseudotumor right midlung likely fluid along the m inor fissure. Right basilar pleural catheter remains in place. No appreciable pneumothorax. Impression: 1. Small bilateral pleural effusions, right greater than left, with adjacent atelectasis and/or conso lidation. Right-sided basilar pleural catheter remains in place. 2. Significantly improving aeration throughout the right lung.
--- NOTE | 2020-12-26 09:04 | P.PN ---
Subjective Progress Note Date: 12/26/20 Principal diagnosis: Right lower lobe pneumonia, present on admission, right lung abscess as well as right pleural effusion, chest pain without obstructive coronary artery disease on heart catheterization, leukocytosis, shortness of breath. Previous medical history of cardiomyopathy, COPD, previous tobacco dependence with recent smoking cessation in September 2020, hypertension, hyperlipidemia, depression, daily EtOH use, recent RSV infection POD #1 placement of right sided pigtail catheter by interventional radiology The patient was seen and examined this morning sitting up in a recliner eating breakfast in no acute distress. States he feels significantly better after oneyda cement of pigtail catheter yesterday. Right pigtail drained 750 mL since insertion. Denies chest pain currently, no shortness of breath. Currently on room air and able to achieve 2000 mL on his incentive spirometer. Remains on IV antibiotics per infectious disease. The patient was seen by Dr. Bain yesterday who did inform the patient that treatment at this time would be drainage of the fluid through the pigtail and antibiotic therapy, we have no plans for surgery at this time. Objective - Vital Signs Vital signs: Vital Signs Temp 97.4 F L 12/26/20 08:00 Pulse 78 12/26/20 08:01 Resp 17 12/26/20 08:00 BP 142/86 12/26/20 08:00 Pulse Ox 96 12/26/20 08:01 Intake & Output 12/25/20 12/26/20 12/26/20 18:59 06:59 18:59 Intake Total 660 Output Total 800 875 Balance -140 -875 Weight 94 kg Intake: Oral 660 Output: Chest Tube Drainage 200 50 Chest Tube Right 200 50 Urine 600 825 Other: Voiding Method Toilet Urinal # Voids 1 - Exam CONSTITUTIONAL: Awake and alert, appears comfortable RESPIRATORY: Lungs sounds diminished bilaterally, right greater than left. Respirations even, non-labored. Currently on room air with oxygen saturation 96%. Right sided pigtail catheter present draining yellow cloudy fluid, 50 mL overnight, 750 mL since placement yesterday CARDIOVASCULAR: S1, S2 present. Regular rate and rhythm, sinus rhythm on telemetry. Palpable peripheral pulses bilaterally. No edema present GASTROINTESTINAL: Abdomen soft, nontender, nondistended. Active bowel sounds present 4 quadrants. Tolerating diet GENITOURINARY: Continues to void INTEGUMENTARY: Skin is warm and dry with evidence of good perfusion. NEUROLOGIC: Cranial nerves II through XII intact, normal coordination, no obvious motor or sensory deficits, speech is normal MUSKULOSKELETAL: Able to move all extremities, strength equal bilaterally, normal posture PSYCHIATRIC: Alert and oriented to person place and time, appropriate affect, intact judgment and insight - Allied health notes Allied health notes reviewed: nursing - Labs CBC & Chem 7: 12/26/20 06:16 12/25/20 07:21 Labs: Abnormal Lab Results - Last 24 Hours (Table) 12/25/20 12/25/20 12/25/20 Range/Units 07:21 07:21 16:51 WBC 44.9 H (3.8-10.6) k/uL RBC 3.49 L (4.30-5.90) m/uL Hgb 11.0 L (13.0-17.5) gm/dL Hct 35.3 L (39.0-53.0) % MCV 100.9 H (80.0-100.0) fL Neutrophils # 42.3 H (1.3-7.7) k/uL Lymphocytes # 0.8 L (1.0-4.8) k/uL Monocytes # 1.4 H (0-1.0) k/uL POC Glucose (mg/dL) 233 H (75-99) mg/dL Lactate Dehydrogenase 849 H (313-618) U/L Total Protein 6.1 L (6.3-8.2) g/dL 12/25/20 12/26/20 Range/Units 20:28 06:16 WBC 26.0 H (3.8-10.6) k/uL RBC 3.22 L (4.30-5.90) m/uL Hgb 10.1 L (13.0-17.5) gm/dL Hct 32.2 L (39.0-53.0) % MCV (80.0-100.0) fL Neutrophils # 23.2 H (1.3-7.7) k/uL Lymphocytes # (1.0-4.8) k/uL Monocytes # (0-1.0) k/uL POC Glucose (mg/dL) 143 H (75-99) mg/dL Lactate Dehydrogenase (313-618) U/L Total Protein (6.3-8.2) g/dL Microbiology - Last 24 Hours (Table) 12/25/20 13:50 Acid Fast Bacilli Culture - Preliminary Pleural Fluid 12/25/20 13:50 Body Fluid Culture - Preliminary Pleural Fluid 12/25/20 13:50 Anaerobic Culture - Preliminary Pleural Fluid 12/25/20 13:50 Fungal Culture - Preliminary Pleural Fluid 12/21/20 12:00 Blood Culture - Preliminary Blood No Growth after 96 hours - Imaging and Cardiology Chest x-ray: report reviewed, image reviewed Assessment and Plan Assessment: 1. Right lower lobe pneumonia, present on admission, right lung abscess as well as right pleural effusion, S/P right sided pigtail insertion by IR, cytology/culture pending 2. Chest pain, no obstructive coronary artery disease on heart catheterization 3. Leukocytosis 4. Shortness of breath 5. History of cardiomyopathy 6. COPD 7. Previous tobacco dependence with recent smoking cessation in September 2020 8. Hypertension 9. Hyperlipidemia 10. Depression 11. Daily EtOH use 12. Recent RSV infection, lab test for RSV negative 12/15/20, also Covid/Influenza A & B negative Plan: 1. Will instill Alteplase/Dornase through pigtail daily to enhance drainage of pleural effusion 2. Continue antibiotics per ID recommendations and based on sensitivites once pleural fluid cultures resulted 3. Encourage incentive spirometry use. Bronchodilators, steroids per pul monology 4. Will review daily labs, CXR 5. Increase activity as tolerated 6. Medical management of other comorbidities per primary care 7. More recommendations to follow Time with Patient: Greater than 30
[2020-12-26 09:06] LABS: African American GFR (CKD) >90 (>60 ml/min/1.73 sqM); Anion Gap 8 mmol/L; Blood Urea Nitrogen 17 mg/dL (9-20); Calcium 8.6 mg/dL (8.4-10.2); Carbon Dioxide 24 mmol/L (22-30); Chloride 106 mmol/L (98-107); Glucose 93 mg/dL (74-99); Non-African American GFR(CKD) >90 (>60 ml/min/1.73 sqM); Potassium 3.6 mmol/L (3.5-5.1); Sodium 138 mmol/L (137-145)
--- NOTE | 2020-12-26 11:37 | P.PN ---
Subjective 55-year-old male who presents emergency pertinent past medical history significant for cardiomyopathy hypertension high cholesterol and recently quit smoking. Patient comes in stating 5 AM this morning he was having severe left- sided chest pain. Patient denies any radiation. Patient states he is somewhat short of breath per patient denies any diaphoretic episodes. Patient states the pain never goes away but it does get worse and get better. Patient denies any nausea. Patient denies abdominal pain patient denies any vomiting. Patient de nies any recent fevers or chills per patient states he does have an upper respiratory infection recently and he was seen in emergency department. Patient states she was negative for COVID. CT of his aorta to rule out dissection. CT was done and showed no dissection. CT did show possibility of a pulmonary abscess in the right lower lung. EKG shows normal sinus rhythm at 73 bpm VA interval 160 QRS is under QT interval 370 QTC is 416. Patient's EKG shows some ST segment elevation in the anterior leads V1 and V2 and V3. Patient has T-wave abnormalities in the precordial leads V4 V5 and V6 as well as inferior leads which were also seen on previous EKG. A STEMI overhead was called. Patient received 1 mg of Ativan and nitroglycerin and aspirin immediately upon arrival in the emergency department. 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 Risks patient was thought to have based on abnormal EKG however cardiac cath showing non-obstructive coronary artery disease. Patient found mostly his symptoms, from right pneumonia and right lung abscess. Is still in respiratory distress and tachypneic because of his infection. He is breathing fast 30s. Rest of vitals are stable. WBC is elevated at 24. Liver enzymes mildly elevated. Which are rest of labs are unremarkable. Poorcalcitonin elevated at 1.27. Thoracic aortic CT is negative for dissection he has ascending aortic aneurysm of 4.1 cm right lung abscess about 6.3 cm. He is currently kept on normal saline at 75, Zosyn and IV vancomycin 12/23/20 Patient is still complaining of from dyspnea and pain on the right side of the chest. His states that Dilaudid 0.5 mg is not enough and clots increased to 1 mg He still somewhat tachypneic but slightly better compared to yesterday. Patient is moderate respiratory distress. Other vitals are stable. WBC is pending today. Rest of labs are unremarkable. Creatinine is normal at 0.8. The patient remains on Zosyn, IV vancomycin and normal saline at 75 mL/h, also Medrol Dosepak added today. 12/24/2020 Patient chest pain is feeling better after increasing his Dilaudid 1 mg. However he still dyspneic with a breathing rate around 22 but with good oxygen saturation. With a chest x-ray and ultrasound showing worsening right more than left pleural effusion with 8.8 cm pocket on the right side. His creatinine is normal. Liver enzymes are better. Blood pressure is elevated 187/104. Hydralazine is added. Also he is on Medrol Dosepak. His antibiotics were adjusted to Unasyn and IV vancomycin. Also he is on normal saline at 75 mL/h. 12/25/2020 Patient breathing better today and, actually his breathing rate is 15-17 per day after it wasn't 20s and 30s the last couple days. However he still complaining of from dyspnea and difficulty breathing. Surgery team are planning for right sided pigtail catheter by IR today with fluid to be sent for culture and cytology. and they will use Alteplase with p igtail daily for drainage of pleural effusion. Labs are unremarkable He remains on IV vancomycin and Unasyn and normal saline at 75 mL/h, also I and steroids and Norvasc is added for better control of blood pressure 12/26/2020 Patient today is doing better with is here breathing and less tachypnea and pain. Replacement of the right pigtail tube and undergoing alteplase irrigation per cardiothoracic surgery team Samples sent for culture and cytology and suspended Hemodynamically and labs are improving and stable. His WBCs 26K. blood pressure is better Repeat chest x-ray showing small bilateral pleural effusion, right more than left with adjacent atelectasis versus consolidation with right basal pleural catheter is in place, improving and radiation. He remains on Unasyn, IV vancomycin, normal saline 75 mg/h and Medrol Dosepak Objective - Vital Signs Vital signs: Vital Signs Temp 97.4 F L 12/26/20 08:00 Pulse 78 12/26/20 08:01 Resp 17 12/26/20 08:00 BP 142/86 12/26/20 08:00 Pulse Ox 96 12/26/20 08:01 Intake & Output 12/25/20 12/26/20 12/26/20 18:59 06:59 18:59 Intake Total 660 240 Output Total 800 875 30 Balance -140 -875 210 Weight 94 kg Intake: Oral 660 240 Output: Chest Tube Drainage 200 50 30 Chest Tube Right 200 50 30 Urine 600 825 Other: Voiding Method Toilet Urinal # Voids 1 1 - Exam GENERAL: The patient is alert and oriented x3, not in any acute distress. Well developed, well nourished. HEENT: Pupils are round and equally reacting to light. EOMI. No scleral icterus. No conjunctival pallor. Normocephalic, atraumatic. No pharyngeal erythema. No thyromegaly. CARDIOVASCULAR: S1 and S2 present. No murmurs, rubs, or gallops. -PULMONARY: Chest is clear to auscultation, no wheezing or crackles. Tachypneic ABDOMEN: Soft, nontender, nondistended, normoactive bowel sounds. No palpable organomegaly. MUSCULOSKELETAL: No joint swelling or deformity. EXTREMITIES: No cyanosis, clubbing, or pedal edema. NEUROLOGICAL: Gross neurological examination did not reveal any focal deficits. SKIN: No rashes. no petechiae. - Labs CBC & Chem 7: 12/26/20 06:16 12/26/20 06:16 Labs: Abnormal Lab Results - Last 24 Hours (Table) 12/25/20 12/25/20 12/25/20 Range/Units 07: 07:21 16:51 WBC 44.9 H (3.8-10.6) k/uL RBC 3.49 L (4.30-5.90) m/uL Hgb 11.0 L (13.0-17.5) gm/dL Hct 35.3 L (39.0-53.0) % MCV 100.9 H (80.0-100.0) fL Neutrophils # 42.3 H (1.3-7.7) k/uL Lymphocytes # 0.8 L (1.0-4.8) k/uL Monocytes # 1.4 H (0-1.0) k/uL POC Glucose (mg/dL) 233 H (75-99) mg/dL Lactate Dehydrogenase 849 H (313-618) U/L Total Protein 6.1 L (6.3-8.2) g/dL 12/25/20 12/26/20 Range/Units 20:28 06:16 WBC 26.0 H (3.8-10.6) k/uL RBC 3.22 L (4.30-5.90) m/uL Hgb 10.1 L (13.0-17.5) gm/dL Hct 32.2 L (39.0-53.0) % MCV (80.0-100.0) fL Neutrophils # 23.2 H (1.3-7.7) k/uL Lymphocytes # (1.0-4.8) k/uL Monocytes # (0-1.0) k/uL POC Glucose (mg/dL) 143 H (75-99) mg/dL Lactate Dehydrogenase (313-618) U/L Total Protein (6.3-8.2) g/dL Microbiology - Last 24 Hours (Table) 12/23/20 15:00 Gram Stain - Final Sputum Sputum Culture - Final 12/25/20 13:50 Gram Stain - Preliminary Pleural Fluid Body Fluid Culture - Preliminary 12/25/20 13:50 Acid Fast Bacilli Culture - Preliminary Pleural Fluid 12/25/20 13:50 Anaerobic Culture - Preliminary Pleural Fluid 12/25/20 13:50 Fungal Culture - Preliminary Pleural Fluid 12/21/20 12:00 Blood Culture - Preliminary Blood No Growth after 96 hours Assessment and Plan Assessment: Right lung abscess 6.3 cm in diameter. Status post right pigtail placement and ateplace irrigation Right side pneumonia, with the right more than left pleural effusion Ascending aortic aneurysm 4.1 cm Sepsis secondary to above Plan: This is a pleasant 55 years old male presents with right lung abscess and pneumonia Continue with IV vancomycin and Unasyn Follow-up blood cultures. Follow-up sputum culture Continue gentle hydration Continue with pigtail tube ini the right lung abscess and alteplase instillations Pulmonary and infectious disease consult Labs and medication were reviewed.. Continue same treatment. Continue with symptomatic treatment. Resume home medication. Monitor lytes and vitals. DVT and GI prophylaxis. Further recommendationsas per clinical course of the patient DVT prophylaxis: Subcutaneous heparin GI Prophylaxis: Pepcid Prognosis is guarded
[2020-12-26 11:45] LABS: Glucose,Whole Blood 107 mg/dL (75-99)
--- NOTE | 2020-12-26 12:42 | P.PN ---
Subjective Progress Note Date: 12/26/20 Principal diagnosis: Right lung abscess, pneumonia 55-year-old male patient is presenting today with extensive right-sided chest wall pain radiating to his back which has some pleuritic in nature. The patient's had a voltage criteria of LVH on his EKG. He was taken to catheter ization and the cardiac catheterization do not to be within normal limits. A CT angiogram of the chest and the thoracic aorta was done and the CT angiogram showed the possibility of a right lower lobe lung abscess measuring 6.3 cm in size in addition to a right-sided pleural effusion which was small. The ascending aorta was measuring 4.1 cm in size. The patient has cardiomegaly. Pulmonary consultation was requested accordingly. Currently is on oxygen on 2 L. Is quite uncomfortable and is having pain along his lites side of the chest and he is unable to take a deep breath. White cell count of 14.7. D-dimer is at 2.34. Creatinine is at 1.3. Troponins are negative. ProBNP level is at 475. Noted the patient was in the emergency department on 12/15/2020. At that time he came in with five-day history of shortness of breath and chills and body aches. He was seen by the emergency department staff and a chest x-ray was given at that time on 12/15/2020 of the chest x-ray showed no significant acute abnormality. There was a suspicious right basilar infiltrate. At that point, the patient was given Zithromax and the patient was given a 5 day course of prednisone 20 mg and he was discharged home. Over the past week, the patient continued to be symptomatic and short of breath and he was not bringing up much sputum. No hemoptysis. His condition got worse and for that reason he presented to the hospital. Note that around 2 weeks ago, he was hospitalized in [place] for an RSV infection of the lung and COPD exacerbation. He is a chronic smoker and he has [id number] smoking history and he quit smoking in September 2020. He is known to have COPD. Other comorbid conditions include hypertension, hyperlipidemia, hypertensive cardiomyopathy and previous history of depression. No history of any substance abuse. Reevaluated today on 12/22/2020, patient remains on the cardiac floor, continues to have pain especially upon taking a deep breath, pain is mostly on the right s reese/right base. Patient was seen yesterday by Dr. Johnston, and the workup seems to be mostly consistent with right lung abscess and right lower lobe pneumonia. Patient remains on antibiotics. Including vancomycin and Zosyn. Will recommend infectious disease consultation on this patient.. He is to have leukocytosis with WBC count of 24.2 hemoglobin 11.9. Electrolytes are normal renal profile is normal. The patient is seen today 12/23/2020 in follow-up on the selective care unit. He is currently resting fairly comfortably in bed. Still having some right- sided chest discomfort. Pain on inhalation. Blood culture pending. Sputum culture pending. Sodium 133. Potassium 4.7. Creatinine 0.85. Vancomycin trough 9.9. He remains on vancomycin and Zosyn. Continued on Symbicort and Du oNeb inhalations. 0.9 normal saline at 75 ML's per hour. The patient is seen today 12/24/2020 in follow-up on the selective care unit. He is awake and alert in no acute distress. Resting in bed. Maintaining O2 saturations in the mid 90s on 2 L/m per nasal cannula. He's been afebrile. Blood and sputum cultures are pending. Today's chest x-ray showed significant increase in the fluid of the right lung. Ultrasound of the chest reveals an 8.8 cm pocket however the fluid is non-simple with internal echoes. Pus or internal infection is suspected. Small left-sided pleural effusion. He remains on vancomycin and Unasyn. Remains on bronchodilators. Reevaluated today on 12/25/2020, patient is scheduled to undergo pigtail catheter placement for suspected empyema, secondary to right lower lobe pneumonia and lung. Discussed his situation with Dr. Frausto earlier today, and he is planning ultrasound-guided pigtail catheter placement to drain the right pleural effusion which is suspected to be empyema related unless for otherwise. I also discussed the patient's condition with thoracic surgery to consider alteplase injections after pigtail catheter placement. And the fluid seems to be loculated. The patient is seen today 12/26/2020 in follow-up on the selective care unit. He did undergo a right sided pigtail catheter placement yesterday by interventional radiology. Presently 700 mL of purulent drainage returned. He is currently resting fairly comfortably in bed. Awake and alert. Maintaining O2 saturations in the 90s on 2 L/m per nasal cannula. He remains on vancomycin and Unasyn. Pleural fluid cultures pending. White count improved to 26.0. Hemoglobin 10.1. Sodium 138. Potassium 3.6. Bicarb 24. Creatinine 0.77. Glucose 107. Today's chest x-ray shows significantly improved air space opacity throughout the right lung. There is small bilateral effusions right greater than left with adjacent atelectasis. Objective - Vital Signs Vital signs: Vital Signs Temp 97.6 F 12/26/20 11:47 Pulse 81 12/26/20 11:47 Resp 18 12/26/20 11:47 BP 143/70 12/26/20 11:47 Pulse Ox 90 L 12/26/20 11:47 Intake & Output 12/25/20 12/26/20 12/26/20 18:59 06:59 18:59 Intake Total 660 240 Output Total 800 875 30 Balance -140 -875 210 Weight 94 kg Intake: Oral 660 240 Output: Chest Tube Drainage 200 50 30 Chest Tube Right 200 50 30 Urine 600 825 Other: Voiding Method Toilet Urinal # Voids 1 1 - Exam Gen. appearance Pleasant 55-year-old male patient, no acute distress distress. He is currently on 2 L of oxygen by nasal cannula. He is not using accessory muscles of breathing. Head exam was generally normal. There was no scleral icterus or corneal arcus. Mucous membranes were moist. Neck was supple and without jugular venous distension, thyromegaly, or carotid bruits. Carotids were easily palpable bilaterally. There was no adenopathy. Lungs sounds are with some crackles in lung bases, right greater than left. No wheezing. Cardiac exam revealed the PMI to be normally situated and sized. The rhythm was regular and no extrasystoles were noted during several minutes of auscultation. The first and second heart sounds were normal and physiologic splitting of the second heart sound was noted. There were no murmurs, rubs, clicks, or gallops. Abdominal exam revealed normal bowel sounds. The abdomen was soft, non-tender, and without masses, organomegaly, or appreciable enlargement of the abdominal aorta. Extremities show adequate and symmetrical pulses. The patient's right radial access is within normal limits and the patient has no hematoma involved. Examination of the skin revealed no evidence of significant rashes, suspicious appearing nevi or other concerning lesions. Neurologically, the patient is awake and alert and the patient does not have any focal neurological deficit. Cranial nerves are essentially intact. - Labs CBC & Chem 7: 12/26/20 06:16 12/26/20 06:16 Labs: Abnormal Lab Results - Last 24 Hours (Table) 12/25/20 12/25/20 12/25/20 Range/Units 07:21 07:21 16:51 WBC 44.9 H (3.8-10.6) k/uL RBC 3.49 L (4.30-5.90) m/uL Hgb 11.0 L (13.0-17.5) gm/dL Hct 35.3 L (39.0-53.0) % MCV 100.9 H (80.0-100.0) fL Neutrophils # 42.3 H (1.3-7.7) k/uL Lymphocytes # 0.8 L (1.0-4.8) k/uL Monocytes # 1.4 H (0-1.0) k/uL POC Glucose (mg/dL) 233 H (75-99) mg/dL Lactate Dehydrogenase 849 H (313-618) U/L Total Protein 6.1 L (6.3-8.2) g/dL 12/25/20 12/26/20 12/26/20 Range/Units 20:28 06:16 11:43 WBC 26.0 H (3.8-10.6) k/uL RBC 3.22 L (4.30-5.90) m/uL Hgb 10.1 L (13.0-17.5) gm/dL Hct 32.2 L (39.0-53.0) % MCV (80.0-100.0) fL Neutrophils # 23.2 H (1.3-7.7) k/uL Lymphocytes # (1.0-4.8) k/uL Monocytes # (0-1.0) k/uL POC Glucose (mg/dL) 143 H 107 H (75-99) mg/dL Lactate Dehydrogenase (313-618) U/L Total Protein (6.3-8.2) g/dL Microbiology - Last 24 Hours (Table) 12/23/20 15:00 Gram Stain - Final Sputum Sputum Culture - Final 12/25/20 13:50 Gram Stain - Preliminary Pleural Fluid Body Fluid Culture - Preliminary 12/25/20 13:50 Acid Fast Bacilli Culture - Preliminary Pleural Fluid 12/25/20 13:50 Anaerobic Culture - Preliminary Pleural Fluid 12/25/20 13:50 Fungal Culture - Preliminary Pleural Fluid 12/21/20 12:00 Blood Culture - Preliminary Blood No Growth after 96 hours Assessment and Plan Assessment: 1 Right lower lobe pneumonia pneumonia complicated by development of a right lung abscess and right-sided pleural effusion. He's been initiated on vancomycin and Unasyn. Today's ultrasound reveals an 8.8 cm pocket that is non- simple and has internal echoes noted. Status post pigtail catheter placement on 12/25/2020. Significant improvement in aeration on the right lung. 2 Acute hypoxic respiratory failure secondary to above 3 Pleurisy and chest pain and shortness of breath secondary to above 4 Leukocytosis, improving 5 Hypertensive cardiomyopathy 6 Normal coronary angiogram 7 Hyperlipidemia 8 COPD Plan: The patient was seen and evaluated by Dr. Nash Chest x-ray and labs reviewed Pigtail catheter placed to right lung Await fluid culture results Currently on vancomycin and now Unasyn Titrate the FiO2 as tolerated Increase his activity as tolerated We will continue to follow I, the cosigning physician, performed a history & physical examination of the patient. Lungs sounds with crackles in the posterior bases right greater than left, diminished right lung base. Maintaining good O2 saturations in the 90s on 2 L/m per nasal. I discussed the assessment and plan of care with my nurse practitioner, Katty Teixeira. I attest to the above note as dictated by her.
[2020-12-26 14:11] VITALS: BMI 29.7
[2020-12-26] MEDS: CYCLOBENZAPRINE 10 MG TAB PO PRN (15:39)
[2020-12-26 16:43] LABS: Glucose,Whole Blood 119 mg/dL (75-99)
--- NOTE | 2020-12-26 17:47 | PN ---
PROGRESS NOTE DATE OF SERVICE: 12/26/2020 REASON FOR FOLLOWUP: Pneumonia, empyema. INTERVAL HISTORY: Patient is afebrile. The patient is breathing more comfortably. The patient denies having any chest pain, shortness of breath. Occasional cough. No abdominal pain. No diarrhea. PHYSICAL EXAMINATION: Blood pressure 157/75, pulse of 85. Temperature is 97.5. He is on 2 L nasal cannula. General description is a middle-aged male up in the bed in no distress. Respiratory system: Unlabored breathing, decreased breath sounds in the bases. No wheeze. Heart S1, S2. Regular rate and rhythm. Abdomen soft, no tenderness. LABS: Hemoglobin is 10.1, white count 26. BUN of 17, creatinine 0.77. The cultures are currently pending. DIAGNOSTIC IMPRESSION AND PLAN: Patient with right-sided pneumonia and abscess status post chest tube placement. Cultures will be followed. Patient to continue with vancomycin and adjust antibiotic further based on culture report. Continue supportive care. MMODL / IJN: [id number] /
[2020-12-26 20:11] LABS: Glucose,Whole Blood 147 mg/dL (75-99)
[2020-12-27 06:10] LABS: Glucose,Whole Blood 85 mg/dL (75-99)
[2020-12-27] MEDS: INSULIN ASPART (NovoLOG) 100 UNIT/ML VIAL SQ SCH ×4 (06:11→20:35)
[2020-12-27] MEDS: carvediloL 12.5 MG TAB PO SCH ×2 (06:12→16:43)
[2020-12-27] MEDS: AMPICILLIN-SULBACTAM 3 GM in SODIUM CHLORIDE 0.9% 100 ML IVPB SCH ×4 (06:12→23:02)
[2020-12-27] MEDS ORDERED: VANCOMYCIN TROUGH DUE 1 EACH MISC MISCELLANE ONE (07:00)
--- NOTE | 2020-12-27 07:47 | XR ---
EXAMINATION TYPE: XR chest 1V portable DATE OF EXAM: 12/27/2020 COMPARISON: Chest x-ray 12/26/2020 HISTORY: Chest tube, pleural effusion TECHNIQUE: Single frontal view of the chest is obtained. FINDINGS: Posterior right pleural drainage catheter is in place. There is pseudotumor appearance on the minor fissure. Basilar density in the left obscures the hemidiaphragm and blunts the left costoph renic angle as on prior exam. Cardiac mediastinal silhouette not significantly changed. IMPRESSION: There is no significant interval change. Pleural drainage tube in place on the right, mi nimal left pleural effusion and associated atelectasis, additional findings above.
[2020-12-27] MEDS: IPRATROPIUM-ALBUTEROL 3 ML NEB INHALATION SCH ×4 (07:56→21:29)
[2020-12-27] MEDS: SYMBICORT 160-4.5 MCG INHALER INHALATION SCH ×2 (07:56→21:29)
[2020-12-27] MEDS: ATORVASTATIN 20 MG TAB PO SCH (08:36)
[2020-12-27] MEDS: KETOROLAC 15 MG/ML 1 ML VIAL IVP PRN ×3 (08:36→20:37)
[2020-12-27] MEDS: HEPARIN SODIUM,PORCINE/PF 5,000 UNIT/0.5 ML SYRINGE SQ SCH ×2 (08:36→20:35)
[2020-12-27] MEDS: methylPREDNISolone 4 MG TAB TAPER PO SCH (08:36)
[2020-12-27] MEDS: amLODIPine 5 MG TAB PO SCH (08:37)
[2020-12-27] MEDS: hydrALAZINE HCL 50 MG TAB PO SCH ×2 (08:37→20:35)
[2020-12-27] MEDS: FAMOTIDINE 20 MG TAB PO SCH ×2 (08:37→20:35)
[2020-12-27] MEDS: VALSARTAN 80 MG TAB PO SCH (08:37)
[2020-12-27] MEDS: ASPIRIN 81 MG PO SCH (08:37)
[2020-12-27] MEDS: VANCOMYCIN 1,500 MG in SODIUM CHLORIDE 0.9% 250 ML IVPB SCH ×3 (08:37→23:46)
[2020-12-27] MEDS: buPROPion SR 150 MG TABLET.ER PO SCH ×2 (08:37→20:35)
[2020-12-27 09:15] LABS: Basophils % (A) 0 %; Eosinophils # (A) 0.1 k/uL (0-0.7); Eosinophils % (A) 1 %; HCT 30.8 % (39.0-53.0); HGB 9.6 gm/dL (13.0-17.5); Lymphocytes # (A) 1.9 k/uL (1.0-4.8); Lymphocytes % (A) 11 %; MCH 31.2 pg (25.0-35.0); MCHC 31.2 g/dL (31.0-37.0); MCV 100.3 fL (80.0-100.0); Mean Platelet Volume 7.9; Monocytes # (A) 0.7 k/uL (0-1.0); Monocytes % (A) 4 %; Neutrophils # (A) 13.9 k/uL (1.3-7.7); Neutrophils % (A) 83 %; Platelet Count 401 k/uL (150-450); RBC 3.08 m/uL (4.30-5.90); RDW 13.5 % (11.5-15.5); WBC 16.9 k/uL (3.8-10.6)
[2020-12-27] MEDS ORDERED: ALTEPLASE 10 MG in SODIUM CHLORIDE 0.9% 50 ML IRRIGATION ONE (09:30)
[2020-12-27] MEDS ORDERED: DORNASE ALFA 5 MG in SODIUM CHLORIDE 0.9% 50 ML IRRIGATION ONE (09:30)
[2020-12-27 09:33] LABS: African American GFR (CKD) >90 (>60 ml/min/1.73 sqM); Anion Gap 8 mmol/L; Blood Urea Nitrogen 16 mg/dL (9-20); Calcium 8.4 mg/dL (8.4-10.2); Carbon Dioxide 27 mmol/L (22-30); Chloride 104 mmol/L (98-107); Glucose 132 mg/dL (74-99); Non-African American GFR(CKD) >90 (>60 ml/min/1.73 sqM); Potassium 3.3 mmol/L (3.5-5.1); Sodium 139 mmol/L (137-145)
[2020-12-27] MEDS ORDERED: Potassium Replacement Protocol 1 EACH MISC MISCELLANE PRN (10:30)
[2020-12-27] MEDS: HYDROmorphone 0.5 MG/0.5 ML SYRINGE IVP PRN ×2 (11:46→16:43)
[2020-12-27] MEDS: POTASSIUM CHLORIDE ER 20 MEQ TAB.ER PO SCH ×2 (11:46→12:41)
[2020-12-27] MEDS: SODIUM CHLORIDE 0.9% 1,000 ML IV SCH ×2 (11:48→23:02)
--- NOTE | 2020-12-27 11:49 | P.PN ---
Subjective Progress Note Date: 12/27/20 Principal diagnosis: Right lower lobe pneumonia, present on admission, right lung abscess as well as right pleural effusion, chest pain without obstructive coronary artery disease on heart catheterization, leukocytosis, shortness of breath. Past medical history significant for cardiomyopathy, COPD, previous tobacco dependence with recent smoking cessation in September 2020, hypertension, hyperlipidemia, depression, daily EtOH use, recent RSV infection. POD #2 placement of right sided pigtail catheter by interventional radiology The patient was seen in follow-up today 12/27/2020 at his bedside on the cardiac stepdown unit. Currently he is lying in bed, is awake, alert and oriented 3 and is in no acute distress. He denies any complaints of shortness of breath or pain at this time. He continues to report he feels much better than he did on presentation to the hospital. Oxygen saturations are 96% on 2 L nasal cannula and he is achieving 1988-2493 milliliters on his incentive spirometry. Right chest pigtail catheter remains in place to low continuous wall suction -20 cm H2O. No air leak is present. Draining serous cloudy drainage with 850 mL output in the last 24 hours. The patient did have alteplase/dornase combination pleural instillation yesterday through his pigtail catheter, with good return. Pleural fluid cultures remain pending, Gram stain pleural fluid shows no growth after 24 hours. He remains on IV antibiotics managed by infectious disease. He is been afebrile the last 24 hours. No new concerns at this time. Laboratory results show his WBC count to continue to trend down and is 16.9 today, hemoglobin 9.6, platelets 401, BUN 16, and creatinine 0.86. Objective - Vital Signs Vital signs: Vital Signs Temp 97.9 F 12/27/20 08:33 Pulse 80 12/27/20 11:28 Resp 16 12/27/20 08:33 BP 129/72 12/27/20 08:33 Pulse Ox 96 12/27/20 08:33 Intake & Output 12/26/20 12/27/20 12/27/20 18:59 06:59 18:59 Intake Total 920 10 180 Output Total 1680 770 275 Balance -760 -760 -95 Weight 94 kg 94.8 kg Intake: IV 10 Invasive Line 4 10 Oral 920 180 Output: Chest Tube Drainage 430 70 Chest Tube Right 430 70 Urine 1250 700 275 Other: Voiding Method Toilet Toilet Urinal Urinal # Voids 1 1 - Exam CONSTITUTIONAL: Awake and alert, appears comfortable. RESPIRATORY: Lungs sounds diminished bilaterally, right greater than left. Respirations are symmetrical and non-labored. Currently on 2 L nasal cannula with oxygen saturation 96%. Right sided pigtail catheter present draining serous cloudy fluid, 70 mL overnight, 850 mL in the last 24 hours. CARDIOVASCULAR: S1, S2 present. Regular rate and rhythm, sinus rhythm on telemetry. Palpable peripheral pulses bilaterally. No edema present. GASTROINTESTINAL: Abdomen soft, nontender, nondistended. Active bowel sounds present 4 quadrants. Tolerating diet. GENITOURINARY: Continues to void. INTEGUMENTARY: Skin is warm and dry with no clubbing or cyanosis. NEUROLOGIC: Cranial nerves II through XII intact, normal coordination, no obvious motor or sensory deficits, speech is normal. MUSKULOSKELETAL: Able to move all extremities, strength equal bilaterally, normal posture. PSYCHIATRIC: Alert and oriented to person place and time, appropriate affect, intact judgment and insight. - Allied health notes Allied health notes reviewed: nursing - Labs CBC & Chem 7: 12/27/20 08:24 12/27/20 08:24 Labs: Abnormal Lab Results - Last 24 Hours (Table) 12/26/20 12/26/20 12/26/20 Range/Units 11:43 16:42 20:10 WBC (3.8-10.6) k/uL RBC (4.30-5.90) m/uL Hgb (13.0-17.5) gm/dL Hct (39.0-53.0) % MCV (80.0-100.0) fL Neutrophils # (1.3-7.7) k/uL Potassium (3.5-5.1) mmol/L Glucose (74-99) mg/dL POC Glucose (mg/dL) 107 H 119 H 147 H (75-99) mg/dL 12/27/20 12/27/20 Range/Units 08:24 08:24 WBC 16.9 H (3.8-10.6) k/uL RBC 3.08 L (4.30-5.90) m/uL Hgb 9.6 L (13.0-17.5) gm/dL Hct 30.8 L (39.0-53.0) % MCV 100.3 H (80.0-100.0) fL Neutrophils # 13.9 H (1.3-7.7) k/uL Potassium 3.3 L (3.5-5.1) mmol/L Glucose 132 H (74-99) mg/dL POC Glucose (mg/dL) (75-99) mg/dL Microbiology - Last 24 Hours (Table) 12/25/20 13:50 Acid Fast Bacilli Smear - Final Pleural Fluid Acid Fast Bacilli Culture - Preliminary 12/25/20 13:50 Gram Stain - Preliminary Pleural Fluid Body Fluid Culture - Preliminary 12/21/20 12:00 Blood Culture - Preliminary Blood No Growth after 120 hours 12/23/20 15:00 Gram Stain - Final Sputum Sputum Culture - Final - Imaging and Cardiology Chest x-ray: report reviewed, image reviewed Assessment and Plan Assessment: 1. Right lower lobe pneumonia, present on admission, right lung abscess as well as right pleural effusion, S/P right sided pigtail insertion by IR, cytology/culture pending 2. Chest pain, no obstructive coronary artery disease on heart catheterization 3. Leukocytosis 4. Shortness of breath 5. History of cardiomyopathy 6. COPD 7. Previous tobacco dependence with recent smoking cessation in September 2020 8. Hypertension 9. Hyperlipidemia 10. Depression 11. Daily EtOH use 12. Recent RSV infection, lab test for RSV negative 12/15/20, also Covid/Influenza A & B negative Plan: 1. Will instill Alteplase/Dornase through pigtail daily to enhance drainage of pleural effusion. Today will be his second dose of alteplase/dornase. 2. Continue antibiotics per infectious disease management and recommendations and based on sensitivites once pleural fluid cultures resulted. 3. Encourage incentive spirometry use 10 times every hour while awake. [facility] hodilators, steroids per pulmonology management. 4. Will review daily labs and chest x-ray. 5. Increase activity as tolerated. Out of bed for all meals. 6. Medical management of other comorbidities per primary care service. 7. More recommendations to follow based on patient's clinical course. Time with Patient: Greater than 30
--- NOTE | 2020-12-27 11:56 | P.PN ---
Subjective Progress Note Date: 12/27/20 Principal diagnosis: Right lung abscess, pneumonia 55-year-old male patient is presenting today with extensive right-sided chest wall pain radiating to his back which has some pleuritic in nature. The patient's had a voltage criteria of LVH on his EKG. He was taken to catheter ization and the cardiac catheterization do not to be within normal limits. A CT angiogram of the chest and the thoracic aorta was done and the CT angiogram showed the possibility of a right lower lobe lung abscess measuring 6.3 cm in size in addition to a right-sided pleural effusion which was small. The ascending aorta was measuring 4.1 cm in size. The patient has cardiomegaly. Pulmonary consultation was requested accordingly. Currently is on oxygen on 2 L. Is quite uncomfortable and is having pain along his lites side of the chest and he is unable to take a deep breath. White cell count of 14.7. D-dimer is at 2.34. Creatinine is at 1.3. Troponins are negative. ProBNP level is at 475. Noted the patient was in the emergency department on 12/15/2020. At that time he came in with five-day history of shortness of breath and chills and body aches. He was seen by the emergency department staff and a chest x-ray was given at that time on 12/15/2020 of the chest x-ray showed no significant acute abnormality. There was a suspicious right basilar infiltrate. At that point, the patient was given Zithromax and the patient was given a 5 day course of prednisone 20 mg and he was discharged home. Over the past week, the patient continued to be symptomatic and short of breath and he was not bringing up much sputum. No hemoptysis. His condition got worse and for that reason he presented to the hospital. Note that around 2 weeks ago, he was hospitalized in [place] for an RSV infection of the lung and COPD exacerbation. He is a chronic smoker and he has [id number] smoking history and he quit smoking in September 2020. He is known to have COPD. Other comorbid conditions include hypertension, hyperlipidemia, hypertensive cardiomyopathy and previous history of depression. No history of any substance abuse. Reevaluated today on 12/22/2020, patient remains on the cardiac floor, continues to have pain especially upon taking a deep breath, pain is mostly on the right s reese/right base. Patient was seen yesterday by Dr. Johnston, and the workup seems to be mostly consistent with right lung abscess and right lower lobe pneumonia. Patient remains on antibiotics. Including vancomycin and Zosyn. Will recommend infectious disease consultation on this patient.. He is to have leukocytosis with WBC count of 24.2 hemoglobin 11.9. Electrolytes are normal renal profile is normal. The patient is seen today 12/23/2020 in follow-up on the selective care unit. He is currently resting fairly comfortably in bed. Still having some right- sided chest discomfort. Pain on inhalation. Blood culture pending. Sputum culture pending. Sodium 133. Potassium 4.7. Creatinine 0.85. Vancomycin trough 9.9. He remains on vancomycin and Zosyn. Continued on Symbicort and Du oNeb inhalations. 0.9 normal saline at 75 ML's per hour. The patient is seen today 12/24/2020 in follow-up on the selective care unit. He is awake and alert in no acute distress. Resting in bed. Maintaining O2 saturations in the mid 90s on 2 L/m per nasal cannula. He's been afebrile. Blood and sputum cultures are pending. Today's chest x-ray showed significant increase in the fluid of the right lung. Ultrasound of the chest reveals an 8.8 cm pocket however the fluid is non-simple with internal echoes. Pus or internal infection is suspected. Small left-sided pleural effusion. He remains on vancomycin and Unasyn. Remains on bronchodilators. Reevaluated today on 12/25/2020, patient is scheduled to undergo pigtail catheter placement for suspected empyema, secondary to right lower lobe pneumonia and lung. Discussed his situation with Dr. Frausto earlier today, and he is planning ultrasound-guided pigtail catheter placement to drain the right pleural effusion which is suspected to be empyema related unless for otherwise. I also discussed the patient's condition with thoracic surgery to consider alteplase injections after pigtail catheter placement. And the fluid seems to be loculated. The patient is seen today 12/26/2020 in follow-up on the selective care unit. He did undergo a right sided pigtail catheter placement yesterday by interventional radiology. Presently 700 mL of purulent drainage returned. He is currently resting fairly comfortably in bed. Awake and alert. Maintaining O2 saturations in the 90s on 2 L/m per nasal cannula. He remains on vancomycin and Unasyn. Pleural fluid cultures pending. White count improved to 26.0. Hemoglobin 10.1. Sodium 138. Potassium 3.6. Bicarb 24. Creatinine 0.77. Glucose 107. Today's chest x-ray shows significantly improved air space opacity throughout the right lung. There is small bilateral effusions right greater than left with adjacent atelectasis. Patient is seen today in follow-up selective care unit. He is resting quite comfortably in bed. Awake and alert in no acute distress. Maintaining O2 saturations in the 90s on 2 L/m per nasal cannula. Chest x-ray shows no significant changes. Pigtail catheter in place. Pseudotumor in the the right minor fissure. 0.9 normal saline at 75 ML's per hour. He remains on antibiotics in the form of vancomycin and Unasyn. Cultures are pending. White count 16.9. Hemoglobin 9.6. Sodium 139. Potassium 3.3. Bicarb 27. Creatinine 0.86. Vancomycin trough 17.1. Remains on bronchodilators, Medrol Dosepak. Objective - Vital Signs Vital signs: Vital Signs Temp 97.9 F 12/27/20 08:33 Pulse 70 12/27/20 11:42 Resp 18 12/27/20 11:42 BP 141/80 12/27/20 11:42 Pulse Ox 97 12/27/20 11:42 Intake & Output 12/26/20 12/27/20 12/27/20 18:59 06:59 18:59 Intake Total 920 10 180 Output Total 1680 770 275 Balance -760 -760 -95 Weight 94 kg 94.8 kg Intake: IV 10 Invasive Line 4 10 Oral 920 180 Output: Chest Tube Drainage 430 70 Chest Tube Right 430 70 Urine 1250 700 275 Other: Voiding Method Toilet Toilet Urinal Urinal # Voids 1 1 - Exam GENERAL EXAM: Alert, pleasant 55-year-old gentleman, on 2 L of nasal cannula, comfortable in no apparent distress. HEAD: Normocephalic. EYES: Normal reaction of pupils, equal size. NOSE: Clear with pink turbinates. THROAT: No erythema or exudates. NECK: No masses, no JVD. CHEST: No chest wall deformity. LUNGS: Equal air entry with crackles in the right lung base. Pigtail catheter in place CVS: S1 and S2 normal with no audible murmur, regular rhythm. ABDOMEN: No hepatosplenomegaly, normal bowel sounds, no guarding or rigidity. SPINE: No scoliosis or deformity SKIN: No rashes CENTRAL NERVOUS SYSTEM: No focal deficits, tone is normal in all 4 extremities. EXTREMITIES: There is no peripheral edema. No clubbing, no cyanosis. Peripheral pulses are intact. - Labs CBC & Chem 7: 12/27/20 08:24 12/27/20 08:24 Labs: Abnormal Lab Results - Last 24 Hours (Table) 12/26/20 12/26/20 12/27/20 Range/Units 16:42 20:10 08:24 WBC (3.8-10.6) k/uL RBC (4.30-5.90) m/uL Hgb (13.0-17.5) gm/dL Hct (39.0-53.0) % MCV (80.0-100.0) fL Neutrophils # (1.3-7.7) k/uL Potassium 3.3 L (3.5-5.1) mmol/L Glucose 132 H (74-99) mg/dL POC Glucose (mg/dL) 119 H 147 H (75-99) mg/dL 12/27/20 Range/Units 08:24 WBC 16.9 H (3.8-10.6) k/uL RBC 3.08 L (4.30-5.90) m/uL Hgb 9.6 L (13.0-17.5) gm/dL Hct 30.8 L (39.0-53.0) % MCV 100.3 H (80.0-100.0) fL Neutrophils # 13.9 H (1.3-7.7) k/uL Potassium (3.5-5.1) mmol/L Glucose (74-99) mg/dL POC Glucose (mg/dL) (75-99) mg/dL Microbiology - Last 24 Hours (Table) 12/25/20 13:50 Acid Fast Bacilli Smear - Final Pleural Fluid Acid Fast Bacilli Culture - Preliminary 12/25/20 13:50 Gram Stain - Preliminary Pleural Fluid Body Fluid Culture - Preliminary 12/21/20 12:00 Blood Culture - Preliminary Blood No Growth after 120 hours 12/23/20 15:00 Gram Stain - Final Sputum Sputum Culture - Final Assessment and Plan Assessment: 1 Right lower lobe pneumonia pneumonia complicated by development of a right geovani g abscess and right-sided pleural effusion. He's been initiated on vancomycin and Unasyn. Status post pigtail catheter placement on 12/25/2020. Significant improvement in aeration on the right lung. 2 Acute hypoxic respiratory failure secondary to above 3 Pleurisy and chest pain and shortness of breath secondary to above 4 Leukocytosis, improving 5 Hypertensive cardiomyopathy 6 Normal coronary angiogram 7 Hyperlipidemia 8 COPD Plan: The patient was seen and evaluated by Dr. Nash Chest x-ray and labs reviewed Pigtail catheter remains in place to the right lung Await fluid culture results, awaiting cytology Currently on vancomycin and now Unasyn We will continue to follow I, the cosigning physician, performed a history & physical examination of the patient. Lungs sounds with crackles in the posterior bases right greater than left. Maintaining good O2 saturations in the 90s on 2 L/m per nasal. I discussed the assessment and plan of care with my nurse practitioner, Katty Teixeira. I attest to the above note as dictated by her.
[2020-12-27 11:58] LABS: Glucose,Whole Blood 87 mg/dL (75-99)
--- NOTE | 2020-12-27 15:00 | P.PN ---
Subjective 55-year-old male who presents emergency pertinent past medical history significant for cardiomyopathy hypertension high cholesterol and recently quit smoking. Patient comes in stating 5 AM this morning he was having severe left- sided chest pain. Patient denies any radiation. Patient states he is somewhat short of breath per patient denies any diaphoretic episodes. Patient states the pain never goes away but it does get worse and get better. Patient denies any nausea. Patient denies abdominal pain patient denies any vomiting. Patient de nies any recent fevers or chills per patient states he does have an upper respiratory infection recently and he was seen in emergency department. Patient states she was negative for COVID. CT of his aorta to rule out dissection. CT was done and showed no dissection. CT did show possibility of a pulmonary abscess in the right lower lung. EKG shows normal sinus rhythm at 73 bpm [place] interval 160 QRS is under QT interval 370 QTC is 416. Patient's EKG shows some ST segment elevation in the anterior leads V1 and V2 and V3. Patient has T-wave abnormalities in the precordial leads V4 V5 and V6 as well as inferior leads which were also seen on previous EKG. A STEMI overhead was called. Patient received 1 mg of Ativan and nitroglycerin and aspirin immediately upon arrival in the emergency department. Patient was evaluated by cardiology in the ED and was taken to [facility] Subjective: 12/22/2020 This is a pleasant 55 -[place] male with multiple medical problems presents with respiratory distress. Risks patient was thought to have based on abnormal EKG however cardiac cath showing non-obstructive coronary artery disease. Patient found mostly his symptoms, from right pneumonia and right lung abscess. Is still in respiratory distress and tachypneic because of his infection. He is breathing fast 30s. Rest of vitals are stable. WBC is elevated at 24. Liver enzymes mildly elevated. Which are rest of labs are unremarkable. Poorcalcitonin elevated at 1.27. Thoracic aortic CT is negative for dissection he has ascending aortic aneurysm of 4.1 cm right lung abscess about 6.3 cm. He is currently kept on normal saline at 75, Zosyn and IV vancomycin 12/23/20 Patient is still complaining of from dyspnea and pain on the right side of the chest. His states that Dilaudid 0.5 mg is not enough and clots increased to 1 mg He still somewhat tachypneic but slightly better compared to yesterday. Patient is moderate respiratory distress. Other vitals are stable. WBC is pending today. Rest of labs are unremarkable. Creatinine is normal at 0.8. The patient remains on Zosyn, IV vancomycin and normal saline at 75 mL/h, also Medrol Dosepak added today. 12/24/2020 Patient chest pain is feeling better after increasing his Dilaudid 1 mg. However he still dyspneic with a breathing rate around 22 but with good oxygen saturation. With a chest x-ray and ultrasound showing worsening right more than left pleural effusion with 8.8 cm pocket on the right side. His creatinine is normal. Liver enzymes are better. Blood pressure is elevated 187/104. Hydralazine is added. Also he is on Medrol Dosepak. His antibiotics were adjusted to Unasyn and IV vancomycin. Also he is on normal saline at 75 mL/h. 12/25/2020 Patient breathing better today and, actually his breathing rate is 15-17 per day after it wasn't 20s and 30s the last couple days. However he still complaining of from dyspnea and difficulty breathing. Surgery team are planning for right sided pigtail catheter by IR today with fluid to be sent for culture and cytology. and they will use Alteplase with p igtail daily for drainage of pleural effusion. Labs are unremarkable He remains on IV vancomycin and Unasyn and normal saline at 75 mL/h, also I and steroids and Norvasc is added for better control of blood pressure 12/26/2020 Patient today is doing better with is here breathing and less tachypnea and pain. Replacement of the right pigtail tube and undergoing alteplase irrigation per cardiothoracic surgery team Samples sent for culture and cytology and suspended Hemodynamically and labs are improving and stable. His WBCs 26K. blood pressure is better Repeat chest x-ray showing small bilateral pleural effusion, right more than left with adjacent atelectasis versus consolidation with right basal pleural catheter is in place, improving and radiation. He remains on Unasyn, IV vancomycin, normal saline 75 mg/h and Medrol Dosepak 12/27/2020 Patient is improving gradually and slowly. Today he is sitting in chair stating that his dyspnea is the same however his breathing normally and quietly. No significant chest pain. Vitals are stable. WBC trending down to 16 K, rest of labs are unremarkable. Chest x-ray showing no change. Pigtail right-sided chest tube is still in place. Culture from the secretion are still pending History on normal saline 75 mL/h, Unasyn, IV vancomycin and Medrol Dosepak Objective - Vital Signs Vital signs: Vital Signs Temp 97.9 F 12/27/20 08:33 Pulse 70 12/27/20 11:42 Resp 18 12/27/20 11:42 BP 141/80 12/27/20 11:42 Pulse Ox 97 12/27/20 11:42 Intake & Output 12/26/20 12/27/20 12/27/20 18:59 06:59 18:59 Intake Total 920 10 180 Output Total 5298 406 8379 Balance -760 -760 -1050 Weight 94 kg 94.8 kg Intake: IV 10 Invasive Line 4 10 Oral 920 180 Output: Chest Tube Drainage 430 70 280 Chest Tube Right 430 70 280 Urine 1250 700 950 Other: Voiding Method Toilet Toilet Urinal Urinal # Voids 1 1 - Exam GENERAL: The patient is alert and oriented x3, not in any acute distress. Well developed, well nourished. HEENT: Pupils are round and equally reacting to light. EOMI. No scleral icterus. No conjunctival pallor. Normocephalic, atraumatic. No pharyngeal erythema. No thyromegaly. CARDIOVASCULAR: S1 and S2 present. No murmurs, rubs, or gallops. -PULMONARY: Chest is clear to auscultation, no wheezing or crackles. Tachypneic ABDOMEN: Soft, nontender, nondistended, normoactive bowel sounds. No palpable organomegaly. MUSCULOSKELETAL: No joint swelling or deformity. EXTREMITIES: No cyanosis, clubbing, or pedal edema. NEUROLOGICAL: Gross neurological examination did not reveal any focal deficits. SKIN: No rashes. no petechiae. - Labs CBC & Chem 7: 12/27/20 08:24 12/27/20 08:24 Labs: Abnormal Lab Results - Last 24 Hours (Table) 12/26/20 12/26/20 12/27/20 Range/Units 16:42 20:10 08:24 WBC (3.8-10.6) k/uL RBC (4.30-5.90) m/uL Hgb (13.0-17.5) gm/dL Hct (39.0-53.0) % MCV (80.0-100.0) fL Neutrophils # (1.3-7.7) k/uL Potassium 3.3 L (3.5-5.1) mmol/L Glucose 132 H (74-99) mg/dL POC Glucose (mg/dL) 119 H 147 H (75-99) mg/dL 12/27/20 Range/Units 08:24 WBC 16.9 H (3.8-10.6) k/uL RBC 3.08 L (4.30-5.90) m/uL Hgb 9.6 L (13.0-17.5) gm/dL Hct 30.8 L (39.0-53.0) % MCV 100.3 H (80.0-100.0) fL Neutrophils # 13.9 H (1.3-7.7) k/uL Potassium (3.5-5.1) mmol/L Glucose (74-99) mg/dL POC Glucose (mg/dL) (75-99) mg/dL Microbiology - Last 24 Hours (Table) 12/21/20 12:00 Blood Culture - Final Blood No Growth after 144 hours 12/25/20 13:50 Acid Fast Bacilli Smear - Final Pleural Fluid Acid Fast Bacilli Culture - Preliminary 12/25/20 13:50 Gram Stain - Preliminary Pleural Fluid Body Fluid Culture - Preliminary 12/23/20 15:00 Gram Stain - Final Sputum Sputum Culture - Final Assessment and Plan Assessment: Right lung abscess 6.3 cm in diameter. Status post right pigtail placement and ateplace irrigation Right side pneumonia, with the right more than left pleural effusion Ascending aortic aneurysm 4.1 cm Sepsis secondary to above Plan: This is a pleasant 55 years old male presents with right lung abscess and pneumonia Continue with IV vancomycin and Unasyn Follow-up blood cultures. Follow-up sputum culture Continue gentle hydration Continue with pigtail tube ini the right lung abscess and alteplase instillations Pulmonary and infectious disease consult Labs and medication were reviewed.. Continue same treatment. Continue with symptomatic treatment. Resume home medication. Monitor lytes and vitals. DVT and GI prophylaxis. Further recommendationsas per clinical course of the patient DVT prophylaxis: Subcutaneous heparin GI Prophylaxis: Pepcid Prognosis is guarded
[2020-12-27 16:34] LABS: Glucose,Whole Blood 130 mg/dL (75-99)
--- NOTE | 2020-12-27 16:45 | PN ---
PROGRESS NOTE DATE OF SERVICE: 12/27/2020 REASON FOR FOLLOWUP: Pneumonia and empyema. INTERVAL HISTORY: The patient is afebrile. The patient is breathing comfortably. Currently on 2 L nasal cannula. The patient denies having any chest pain. He did have a cough; not bringing up any sputum. No vomiting. No abdominal pain or diarrhea. PHYSICAL EXAMINATION: Blood pressure 141/80 with a pulse of 70, temperature of 97.9. He is 97% on 2 L nasal cannula. General description is a middle-aged male up in the bed in no distress. RESPIRATORY SYSTEM: Unlabored breathing. Decreased intensity of breath sounds. No wheeze. HEART: S1, S2. Regular rate and rhythm. ABDOMEN: Soft. No tenderness. EXTREMITIES: No edema of the feet. LABS: Hemoglobin is 9.3, white count down to 16.9. Creatinine 0.86. Cultures currently pending. DIAGNOSTIC IMPRESSION AND PLAN: Patient with pneumonia and empyema, status post chest tube placement. Cultures are currently pending. Patient's white count is trending down. Continue with the vancomycin and Unasyn while waiting for the culture to finalize and monitor his clinical course closely. MMODL / IJN: [id number] /
[2020-12-27 20:05] LABS: Glucose,Whole Blood 129 mg/dL (75-99)
[2020-12-28 06:10] LABS: Glucose,Whole Blood 91 mg/dL (75-99)
[2020-12-28] MEDS: carvediloL 12.5 MG TAB PO SCH ×2 (06:12→16:17)
[2020-12-28] MEDS: INSULIN ASPART (NovoLOG) 100 UNIT/ML VIAL SQ SCH ×4 (06:12→21:24)
[2020-12-28] MEDS: AMPICILLIN-SULBACTAM 3 GM in SODIUM CHLORIDE 0.9% 100 ML IVPB SCH ×4 (06:12→23:10)
[2020-12-28 08:06] LABS: Basophils % (A) 0 %; Eosinophils # (A) 0.3 k/uL (0-0.7); Eosinophils % (A) 2 %; HCT 34.9 % (39.0-53.0); HGB 10.8 gm/dL (13.0-17.5); Lymphocytes # (A) 2.4 k/uL (1.0-4.8); Lymphocytes % (A) 15 %; MCHC 30.9 g/dL (31.0-37.0); MCV 100.4 fL (80.0-100.0); Monocytes # (A) 0.5 k/uL (0-1.0); Monocytes % (A) 3 %; Neutrophils # (A) 12.4 k/uL (1.3-7.7); Neutrophils % (A) 78 %; Platelet Count 459 k/uL (150-450); RBC 3.48 m/uL (4.30-5.90); RDW 13.6 % (11.5-15.5); WBC 15.8 k/uL (3.8-10.6)
--- NOTE | 2020-12-28 08:09 | XR ---
EXAMINATION TYPE: XR chest 1V portable DATE OF EXAM: 12/28/2020 COMPARISON: Chest x-ray 12/27/2020 HISTORY: Empyema, chest tube TECHNIQUE: Single frontal view of the chest is obtained. FINDINGS: Right-sided chest tube remains in place, posterior pigtail catheter is unchanged. Pseudotu mor appears smaller in the right, apical pleural thickening is again noted. Patchy densities present at the left lung base similar to prior. Cardiac mediastinal silhouette not significantly changed. No evident pneumothorax. IMPRESSION: Findings are similar to prior exam. There is interval improvement in aeration. Possible left lower lobe atelectasis versus pneumonia and associated effusion.
[2020-12-28 08:16] LABS: African American GFR (CKD) >90 (>60 ml/min/1.73 sqM); Anion Gap 9 mmol/L; Blood Urea Nitrogen 14 mg/dL (9-20); Calcium 8.9 mg/dL (8.4-10.2); Carbon Dioxide 29 mmol/L (22-30); Chloride 101 mmol/L (98-107); Glucose 90 mg/dL (74-99); Non-African American GFR(CKD) >90 (>60 ml/min/1.73 sqM); Potassium 3.5 mmol/L (3.5-5.1); Sodium 139 mmol/L (137-145)
[2020-12-28] MEDS: IPRATROPIUM-ALBUTEROL 3 ML NEB INHALATION SCH ×4 (08:21→21:02)
[2020-12-28] MEDS: SYMBICORT 160-4.5 MCG INHALER INHALATION SCH ×2 (08:21→21:03)
[2020-12-28] MEDS: VALSARTAN 80 MG TAB PO SCH (08:36)
[2020-12-28] MEDS: buPROPion SR 150 MG TABLET.ER PO SCH ×2 (08:36→21:22)
[2020-12-28] MEDS: ASPIRIN 81 MG PO SCH (08:36)
[2020-12-28] MEDS: HEPARIN SODIUM,PORCINE/PF 5,000 UNIT/0.5 ML SYRINGE SQ SCH ×2 (08:36→21:24)
[2020-12-28] MEDS: ATORVASTATIN 20 MG TAB PO SCH (08:37)
[2020-12-28] MEDS: FAMOTIDINE 20 MG TAB PO SCH ×2 (08:37→21:23)
[2020-12-28] MEDS: hydrALAZINE HCL 50 MG TAB PO SCH ×2 (08:37→21:23)
[2020-12-28] MEDS: KETOROLAC 15 MG/ML 1 ML VIAL IVP PRN ×3 (08:37→21:24)
[2020-12-28] MEDS: methylPREDNISolone 4 MG TAB TAPER PO SCH (08:37)
[2020-12-28] MEDS: amLODIPine 5 MG TAB PO SCH (08:37)
[2020-12-28] MEDS: VANCOMYCIN 1,500 MG in SODIUM CHLORIDE 0.9% 250 ML IVPB SCH ×3 (08:37→23:55)
[2020-12-28] MEDS: POTASSIUM CHLORIDE ER 20 MEQ TAB.ER PO SCH ×2 (08:38→11:16)
[2020-12-28] MEDS ORDERED: ALTEPLASE 10 MG in SODIUM CHLORIDE 0.9% 50 ML IRRIGATION ONE (09:52)
[2020-12-28] MEDS ORDERED: DORNASE ALFA 5 MG in SODIUM CHLORIDE 0.9% 50 ML IRRIGATION ONE (09:52)
--- NOTE | 2020-12-28 10:36 | P.PN ---
Subjective Progress Note Date: 12/28/20 Principal diagnosis: Right lower lobe pneumonia, present on admission, right lung abscess as well as right pleural effusion, chest pain without obstructive coronary artery disease on heart catheterization, leukocytosis, shortness of breath. Past medical history significant for cardiomyopathy, COPD, previous tobacco dependence with recent smoking cessation in September 2020, hypertension, hyperlipidemia, depression, daily EtOH use, recent RSV infection. POD #3 placement of right sided pigtail catheter by interventional radiology The patient was seen in follow-up today 12/28/2020 at his bedside on the cardiac stepdown unit. Currently he is sitting up to bedside chair, is awake, alert and oriented 3 and is in no acute distress. He denies any complaints of shortness of breath or pain at this time. The patient reports that he continues to feel better on a daily basis. He has some concerns about obtaining his medical records as the patient is from [place] and does not follow on a regular basis with any healthcare provider here locally. Oxygen saturations are 99% on 2 L nasal cannula and he is achieving 1500 mL on his incentive spirometry. Right chest pigtail catheter remains in place to low continuous wall suction -20 cm H2O. No air leak is present. Draining cloudy serous drainage with 60 mL output in the last 8 hours and 500 mL output in the last 24 hours. He was given a second dose of alteplase/dornase yesterday through his pigtail catheter. He continues on IV antibiotics which is being managed by infectious disease. He remains afebrile the last 24 hours. Final culture results remain pending and showed no growth at this time. Laboratory results this morning show his WBC count to continue to trend downward and is 15.8 this morning, hemoglobin 10.8, platelets 459, BUN 14 and creatinine 0.87. No new concerns. Objective - Vital Signs Vital signs: Vital Signs Temp 98.1 F 12/28/20 08:10 Pulse 70 12/28/20 08:31 Resp 18 12/28/20 08:10 BP 156/80 12/28/20 08:10 Pulse Ox 96 12/28/20 08:10 Intake & Output 12/27/20 12/28/20 12/28/20 18:59 06:59 18:59 Intake Total 420 Output Total 2195 1680 Balance -1775 -1680 Intake: Oral 420 Output: Chest Tube Drainage 320 30 Chest Tube Right 320 30 Urine 1875 1650 Other: Voiding Method Toilet Toilet Urinal Urinal - Exam CONSTITUTIONAL: Awake and alert, appears comfortable. RESPIRATORY: Lungs sounds diminished bilaterally, right greater than left. Respirations are symmetrical and non-labored. Currently on 2 L nasal cannula with oxygen saturation 99%. Right sided pigtail catheter present draining se jose cloudy fluid, 60 mL overnight, 500 mL in the last 24 hours. CARDIOVASCULAR: S1, S2 present. Regular rate and rhythm, sinus rhythm on telemetry. Palpable peripheral pulses bilaterally. No edema present. GASTROINTESTINAL: Abdomen soft, nontender, nondistended. Active bowel sounds present 4 quadrants. Tolerating diet. GENITOURINARY: Continues to void. INTEGUMENTARY: Skin is warm and dry with no clubbing or cyanosis. NEUROLOGIC: Cranial nerves II through XII intact, normal coordination, no obvious motor or sensory deficits, speech is normal. MUSKULOSKELETAL: Able to move all extremities, strength equal bilaterally, normal posture. PSYCHIATRIC: Alert and oriented to person place and time, appropriate affect, intact judgment and insight. - Allied health notes Allied health notes reviewed: nursing - Labs CBC & Chem 7: 12/28/20 07:44 12/28/20 07:44 Labs: Abnormal Lab Results - Last 24 Hours (Table) 12/27/20 12/27/20 12/28/20 Range/Units 16:32 20:03 07:44 WBC 15.8 H (3.8-10.6) k/uL RBC 3.48 L (4.30-5.90) m/uL Hgb 10.8 L (13.0-17.5) gm/dL Hct 34.9 L (39.0-53.0) % MCV 100.4 H (80.0-100.0) fL MCHC 30.9 L (31.0-37.0) g/dL Plt Count 459 H (150-450) k/uL Neutrophils # 12.4 H (1.3-7.7) k/uL POC Glucose (mg/dL) 130 H 129 H (75-99) mg/dL Microbiology - Last 24 Hours (Table) 12/25/20 13:50 Anaerobic Culture - Preliminary Pleural Fluid 12/25/20 13:50 Gram Stain - Preliminary Pleural Fluid Body Fluid Culture - Preliminary 12/21/20 12:00 Blood Culture - Final Blood No Growth after 144 hours - Imaging and Cardiology Chest x-ray: report reviewed, image reviewed Assessment and Plan Assessment: 1. Right lower lobe pneumonia, present on admission, right lung abscess as well as right pleural effusion, S/P right sided pigtail insertion by IR, cytology/culture pending 2. Chest pain, no obstructive coronary artery disease on heart catheterization 3. Leukocytosis 4. Shortness of breath 5. History of cardiomyopathy 6. COPD 7. Previous tobacco dependence with recent smoking cessation in September 2020 8. Hypertension 9. Hyperlipidemia 10. Depression 11. Daily EtOH use 12. Recent RSV infection, lab test for RSV negative 12/15/20, also Covid/Influenza A & B negative Plan: 1. Will instill Alteplase/Dornase through pigtail daily to enhance drainage of pleural effusion. Today will be his third dose of alteplase/dornase. 2. Continue antibiotics per infectious disease management and recommendations and based on sensitivites once pleural fluid cultures resulted. 3. Encourage incentive spirometry use 10 times every hour while awake. Bronchodilators, steroids per pulmonology management. 4. Will review daily labs and chest x-ray. 5. Increase activity as tolerated. Out of bed for all meals. 6. Medical management of other comorbidities per primary care service. 7. More recommendations to follow based on patient's clinical course. Time with Patient: Greater than 30
[2020-12-28] MEDS: HYDROmorphone 0.5 MG/0.5 ML SYRINGE IVP PRN ×2 (11:14→14:03)
[2020-12-28] MEDS: SODIUM CHLORIDE 0.9% 1,000 ML IV SCH (11:15)
[2020-12-28 11:36] LABS: Glucose,Whole Blood 101 mg/dL (75-99)
--- NOTE | 2020-12-28 12:28 | P.PN ---
Subjective 55-year-old male who presents emergency pertinent past medical history significant for cardiomyopathy hypertension high cholesterol and recently quit smoking. Patient comes in stating 5 AM this morning he was having severe left- sided chest pain. Patient denies any radiation. Patient states he is somewhat short of breath per patient denies any diaphoretic episodes. Patient states the pain never goes away but it does get worse and get better. Patient denies any nausea. Patient denies abdominal pain patient denies any vomiting. Patient de nies any recent fevers or chills per patient states he does have an upper respiratory infection recently and he was seen in emergency department. Patient states she was negative for COVID. CT of his aorta to rule out dissection. CT was done and showed no dissection. CT did show possibility of a pulmonary abscess in the right lower lung. EKG shows normal sinus rhythm at 73 bpm OK interval 160 QRS is under QT interval 370 QTC is 416. Patient's EKG shows some ST segment elevation in the anterior leads V1 and V2 and V3. Patient has T-wave abnormalities in the precordial leads V4 V5 and V6 as well as inferior leads which were also seen on previous EKG. A STEMI overhead was called. Patient received 1 mg of Ativan and nitroglycerin and aspirin immediately upon arrival in the emergency department. Patient was evaluated by cardiology in the ED and was taken to [facility] Subjective: 12/22/2020 This is a pleasant 55 -[place] male with multiple medical problems presents with respiratory distress. Risks patient was thought to have based on abnormal EKG however cardiac cath showing non-obstructive coronary artery disease. Patient found mostly his symptoms, from right pneumonia and right lung abscess. Is still in respiratory distress and tachypneic because of his infection. He is breathing fast 30s. Rest of vitals are stable. WBC is elevated at 24. Liver enzymes mildly elevated. Which are rest of labs are unremarkable. Poorcalcitonin elevated at 1.27. Thoracic aortic CT is negative for dissection he has ascending aortic aneurysm of 4.1 cm right lung abscess about 6.3 cm. He is currently kept on normal saline at 75, Zosyn and IV vancomycin 12/23/20 Patient is still complaining of from dyspnea and pain on the right side of the chest. His states that Dilaudid 0.5 mg is not enough and clots increased to 1 mg He still somewhat tachypneic but slightly better compared to yesterday. Patient is moderate respiratory distress. Other vitals are stable. WBC is pending today. Rest of labs are unremarkable. Creatinine is normal at 0.8. The patient remains on Zosyn, IV vancomycin and normal saline at 75 mL/h, also Medrol Dosepak added today. 12/24/2020 Patient chest pain is feeling better after increasing his Dilaudid 1 mg. However he still dyspneic with a breathing rate around 22 but with good oxygen saturation. With a chest x-ray and ultrasound showing worsening right more than left pleural effusion with 8.8 cm pocket on the right side. His creatinine is normal. Liver enzymes are better. Blood pressure is elevated 187/104. Hydralazine is added. Also he is on Medrol Dosepak. His antibiotics were adjusted to Unasyn and IV vancomycin. Also he is on normal saline at 75 mL/h. 12/25/2020 Patient breathing better today and, actually his breathing rate is 15-17 per day after it wasn't 20s and 30s the last couple days. However he still complaining of from dyspnea and difficulty breathing. Surgery team are planning for right sided pigtail catheter by IR today with fluid to be sent for culture and cytology. and they will use Alteplase with p igtail daily for drainage of pleural effusion. Labs are unremarkable He remains on IV vancomycin and Unasyn and normal saline at 75 mL/h, also I and steroids and Norvasc is added for better control of blood pressure 12/26/2020 Patient today is doing better with is here breathing and less tachypnea and pain. Replacement of the right pigtail tube and undergoing alteplase irrigation per cardiothoracic surgery team Samples sent for culture and cytology and suspended Hemodynamically and labs are improving and stable. His WBCs 26K. blood pressure is better Repeat chest x-ray showing small bilateral pleural effusion, right more than left with adjacent atelectasis versus consolidation with right basal pleural catheter is in place, improving and radiation. He remains on Unasyn, IV vancomycin, normal saline 75 mg/h and Medrol Dosepak 12/27/2020 Patient is improving gradually and slowly. Today he is sitting in chair stating that his dyspnea is the same however his breathing normally and quietly. No significant chest pain. Vitals are stable. WBC trending down to 16 K, rest of labs are unremarkable. Chest x-ray showing no change. Pigtail right-sided chest tube is still in place. Culture from the secretion are still pending History on normal saline 75 mL/h, Unasyn, IV vancomycin and Medrol Dosepak 12/28/2020 Patients with no dyspnea at rest, no chest pain. He still feels little malaise. Hemodynamically stable. WBC slightly down the 15th K.. Creatinine and electrolytes are normal. Cultures are pending. Cytology results from the abscess aspirate also still pending. He is on IV vancomycin and Unasyn Objective - Vital Signs Vital signs: Vital Signs Temp 98.1 F 12/28/20 08:10 Pulse 74 12/28/20 12:18 Resp 18 12/28/20 11:14 BP 121/65 12/28/20 11:14 Pulse Ox 98 12/28/20 11:14 Intake & Output 12/27/20 12/28/20 12/28/20 18:59 06:59 18:59 Intake Total 420 Output Total 2195 1680 650 Balance -1775 -1680 -650 Intake: Oral 420 Output: Chest Tube Drainage 320 30 Chest Tube Right 320 30 Urine 1875 1650 650 Other: Voiding Method Toilet Toilet Urinal Urinal - Exam GENERAL: The patient is alert and oriented x3, not in any acute distress. Well developed, well nourished. HEENT: Pupils are round and equally reacting to light. EOMI. No scleral icterus. No conjunctival pallor. Normocephalic, atraumatic. No pharyngeal erythema. No thyromegaly. CARDIOVASCULAR: S1 and S2 present. No murmurs, rubs, or gallops. -PULMONARY: Chest is clear to auscultation, no wheezing or crackles. Tachypneic ABDOMEN: Soft, nontender, nondistended, normoactive bowel sounds. No palpable organomegaly. MUSCULOSKELETAL: No joint swelling or deformity. EXTREMITIES: No cyanosis, clubbing, or pedal edema. NEUROLOGICAL: Gross neurological examination did not reveal any focal deficits. SKIN: No rashes. no petechiae. - Labs CBC & Chem 7: 12/28/20 07:44 12/28/20 07:44 Labs: Abnormal Lab Results - Last 24 Hours (Table) 12/27/20 12/27/20 12/28/20 Range/Units 16:32 20:03 07:44 WBC 15.8 H (3.8-10.6) k/uL RBC 3.48 L (4.30-5.90) m/uL Hgb 10.8 L (13.0-17.5) gm/dL Hct 34.9 L (39.0-53.0) % MCV 100.4 H (80.0-100.0) fL MCHC 30.9 L (31.0-37.0) g/dL Plt Count 459 H (150-450) k/uL Neutrophils # 12.4 H (1.3-7.7) k/uL POC Glucose (mg/dL) 130 H 129 H (75-99) mg/dL 12/28/20 Range/Units 11:34 WBC (3.8-10.6) k/uL RBC (4.30-5.90) m/uL Hgb (13.0-17.5) gm/dL Hct (39.0-53.0) % MCV (80.0-100.0) fL MCHC (31.0-37.0) g/dL Plt Count (150-450) k/uL Neutrophils # (1.3-7.7) k/uL POC Glucose (mg/dL) 101 H (75-99) mg/dL Microbiology - Last 24 Hours (Table) 12/25/20 13:50 Anaerobic Culture - Preliminary Pleural Fluid 12/25/20 13:50 Gram Stain - Preliminary Pleural Fluid Body Fluid Culture - Preliminary 12/21/20 12:00 Blood Culture - Final Blood No Growth after 144 hours Assessment and Plan Assessment: Right lung abscess 6.3 cm in diameter. Status post right pigtail placement and ateplace irrigation Right side pneumonia, with the right more than left pleural effusion Ascending aortic aneurysm 4.1 cm Sepsis secondary to above Plan: This is a pleasant 55 years old male presents with right lung abscess and pneumonia Continue with IV vancomycin and Unasyn Follow-up blood cultures. Follow-up sputum culture Continue gentle hydration Continue with pigtail tube ini the right lung abscess and alteplase insti llations Pulmonary and infectious disease consult Labs and medication were reviewed.. Continue same treatment. Continue with symptomatic treatment. Resume home medication. Monitor lytes and vitals. DVT and GI prophylaxis. Further recommendationsas per clinical course of the patient DVT prophylaxis: Subcutaneous heparin GI Prophylaxis: Pepcid Prognosis is guarded
--- NOTE | 2020-12-28 14:17 | P.PN ---
Subjective Progress Note Date: 12/28/20 Principal diagnosis: Right lung abscess, and pneumonia, and suspect empyema. 55-year-old male patient is presenting today with extensive right-sided chest wall pain radiating to his back which has some pleuritic in nature. The patient's had a voltage criteria of LVH on his EKG. He was taken to catheterization and the cardiac catheterization do not to be within normal limits. A CT angiogram of the chest and the thoracic aorta was done and the CT angiogram showed the possibility of a right lower lobe lung abscess measuring 6.3 cm in size in addition to a right-sided pleural effusion which was small. The ascending aorta was measuring 4.1 cm in size. The patient has cardiomegaly. Pulmonary consultation was requested accordingly. Currently is on oxygen on 2 L. Is quite uncomfortable and is having pain along his lites side of the chest and he is unable to take a deep breath. White cell count of 14.7. D-dimer is at 2.34. Creatinine is at 1.3. Troponins are negative. ProBNP level is at 475. Noted the patient was in the emergency department on 12/15/2020. At that time he came in with five-day history of shortness of breath and chills and body aches. He was seen by the emergency department staff and a chest x-ray was given at that time on 12/15/2020 of the chest x-ray showed no significant acute abnormality. There was a suspicious right basilar infiltrate. At that point, the patient was given Zithromax and the patient was given a 5 day course of p rednisone 20 mg and he was discharged home. Over the past week, the patient continued to be symptomatic and short of breath and he was not bringing up much sputum. No hemoptysis. His condition got worse and for that reason he presented to the hospital. Note that around 2 weeks ago, he was hospitalized in [place] for an RSV infection of the lung and COPD exacerbation. He is a chronic smoker and he has [id number] smoking history and he quit smoking in September 2020. He is known to have COPD. Other comorbid conditions include hypertension, hyperlipidemia, hypertensive cardiomyopathy and previous history of depression. No history of any substance abuse. Reevaluated today on 12/22/2020, patient remains on the cardiac floor, continues to have pain especially upon taking a deep breath, pain is mostly on the right side/right base. Patient was seen yesterday by Dr. Johnston, and the workup seems to be mostly consistent with right lung abscess and right lower lobe pneumonia. Patient remains on antibiotics. Including vancomycin and Zosyn. Will recommend infectious disease consultation on this patient.. He is to have leukocytosis with WBC count of 24.2 hemoglobin 11.9. Electrolytes are normal renal profile is normal The patient is seen today 12/23/2020 in follow-up on the selective care unit. He is currently resting fairly comfortably in bed. Still having some right- sided chest discomfort. Pain on inhalation. Blood culture pending. Sputum culture pending. Sodium 133. Potassium 4.7. Creatinine 0.85. Vancomycin trough 9.9. He remains on vancomycin and Zosyn. Continued on Symbicort and DuoNeb inhalations. 0.9 normal saline at 75 ML's per hour. The patient is seen today 12/24/2020 in follow-up on the selective care unit. He is awake and alert in no acute distress. Resting in bed. Maintaining O2 saturations in the mid 90s on 2 L/m per nasal cannula. He's been afebrile. Blood and sputum cultures are pending. Today's chest x-ray showed significant increase in the fluid of the right lung. Ultrasound of the chest reveals an 8.8 cm pocket however the fluid is non-simple with internal echoes. Pus or internal infection is suspected. Small left-sided pleural effusion. He remains on vancomycin and Unasyn. Remains on bronchodilators. Reevaluated today on 12/25/2020, patient is scheduled to undergo pigtail catheter placement for suspected empyema, secondary to right lower lobe pneumonia and lung. Discussed his situation with Dr. Frausto earlier today, and he is planning ultrasound-guided pigtail catheter placement to drain the right pleural effusion which is suspected to be empyema related unless for otherwise. I also discussed the patient's condition with thoracic surgery to consider alteplase injections after pigtail catheter placement. And the fluid seems to be loculated. The patient is seen today 12/26/2020 in follow-up on the selective care unit. He did undergo a right sided pigtail catheter placement yesterday by [facility] radiology. Presently 700 mL of purulent drainage returned. He is currently resting fairly comfortably in bed. Awake and alert. Maintaining O2 saturations in the 90s on 2 L/m per nasal cannula. He remains on vancomycin and Unasyn. Pleural fluid cultures pending. White count improved to 26.0. Hemoglobin 10.1. Sodium 138. Potassium 3.6. Bicarb 24. Creatinine 0.77. Glucose 107. Today 's chest x-ray shows significantly improved air space opacity throughout the right lung. There is small bilateral effusions right greater than left with adjacent atelectasis. Patient is seen today in follow-up selective care unit. He is resting quite comfortably in bed. Awake and alert in no acute distress. Maintaining O2 saturations in the 90s on 2 L/m per nasal cannula. Chest x-ray shows no significant changes. Pigtail catheter in place. Pseudotumor in the the right minor fissure. 0.9 normal saline at 75 ML's per hour. He remains on antibiotics in the form of vancomycin and Unasyn. Cultures are pending. White count 16.9. Hemoglobin 9.6. Sodium 139. Potassium 3.3. Bicarb 27. Creatinine 0.86. Vancomycin trough 17.1. Remains on bronchodilators, Medrol Dosepak. Patient was reevaluated today on 12/28/20, remains on the cardiac floor, patient seems to be comfortable, continues to have a pigtail catheter in place, patient is gradually getting better, continues to have significant amount of drainage from the right sided chest tube, he is now on 2 L nasal cannula, O2 sats is 99%, he is doing great with incentive spirometry achieving over 1500 ML. Continues to have cloudy serous drainage from the right sided pigtail catheter, and he had an output of 500 ML in the last 24 hours. Patient was given a second dose of alteplase as/dornase yesterday, this was given for the pigtail catheter. Remains on antibiotics, cultures remain negative. No growth so far. Although the fluid from the right pleural space did show evidence of exudate, and fluid glucose was extremely low Objective - Vital Signs Vital signs: Vital Signs Temp 98.1 F 12/28/20 08:10 Pulse 74 12/28/20 12:18 Resp 18 12/28/20 11:14 BP 121/65 12/28/20 11:14 Pulse Ox 98 12/28/20 11:14 Intake & Output 12/27/20 12/28/20 12/28/20 18:59 06:59 18:59 Intake Total 420 Output Total 2195 1680 650 Balance -1775 -1680 -650 Intake: Oral 420 Output: Chest Tube Drainage 320 30 Chest Tube Right 320 30 Urine 1875 1650 650 Other: Voiding Method Toilet Toilet Urinal Urinal - Exam Physical Exam: Revealed 55-year-old male in no distress, on 2 L nasal cannula Head: Atraumatic, normocephalic. HEENT:[Neck is supple.] [No neck masses.] [No thyromegaly.] [No JVD.] Chest: Diminished breath sounds and dullness at the right base, pigtail catheter noted in the right base. Cardiac Exam: [Normal S1 and S2, no S3 gallop, no murmur.] Abdomen: [Soft, nontender, no megaly, no rebound, no guarding, normal bowel sounds.] Extremities: [No clubbing, no edema, no cyanosis.] Neurological Exam: [No focal neurologic deficit.] Alert oriented 3. Psychiatric: Normal mood affect and normal mental status examination. Skin: No rashes. - Labs CBC & Chem 7: 12/28/20 07:44 12/28/20 07:44 Labs: Abnormal Lab Results - Last 24 Hours (Table) 12/27/20 12/27/20 12/28/20 Range/Units 16:32 20:03 07:44 WBC 15.8 H (3.8-10.6) k/uL RBC 3.48 L (4.30-5.90) m/uL Hgb 10.8 L (13.0-17.5) gm/dL Hct 34.9 L (39.0-53.0) % MCV 100.4 H (80.0-100.0) fL MCHC 30.9 L (31.0-37.0) g/dL Plt Count 459 H (150-450) k/uL Neutrophils # 12.4 H (1.3-7.7) k/uL POC Glucose (mg/dL) 130 H 129 H (75-99) mg/dL 12/28/20 Range/Units 11:34 WBC (3.8-10.6) k/uL RBC (4.30-5.90) m/uL Hgb (13.0-17.5) gm/dL Hct (39.0-53.0) % MCV (80.0-100.0) fL MCHC (31.0-37.0) g/dL Plt Count (150-450) k/uL Neutrophils # (1.3-7.7) k/uL POC Glucose (mg/dL) 101 H (75-99) mg/dL Microbiology - Last 24 Hours (Table) 12/25/20 13:50 Anaerobic Culture - Preliminary Pleural Fluid 12/25/20 13:50 Gram Stain - Preliminary Pleural Fluid Body Fluid Culture - Preliminary 12/21/20 12:00 Blood Culture - Final Blood No Growth after 144 hours Assessment and Plan Assessment: 1 acute community-acquired right lower lobe pneumonia complicated with lung abscess and complicated pleural effusion and empyema acute hypoxic respiratory failure secondary to above pleurisy and chest pain and shortness of breath secondary to above History of underlying COPD presently inactive. Hypertensive cardiomyopathy dyslipidemia Normal coronary angiogram. Recommendation: Continue to monitor drainage from pigtail catheter Continue alteplase/dornase via pigtail catheter as given by thoracic surgery on the case. Continue antibiotics including Zosyn and vancomycin Continue pain management and pain control Continue IV fluids Continue updrafts Cultures remain negative. May eventually require a PICC line placement, and possibly IV antibiotics at home for 3-4 weeks. We'll continue to follow. Time with Patient: Less than 30
[2020-12-28 16:25] LABS: Glucose,Whole Blood 147 mg/dL (75-99)
[2020-12-28] MEDS ORDERED: KETOROLAC 15 MG/ML 1 ML VIAL IVP SCH (18:00)
[2020-12-28 19:34] LABS: Glucose,Whole Blood 118 mg/dL (75-99)
[2020-12-29] MEDS: SODIUM CHLORIDE 0.9% 1,000 ML IV SCH ×2 (01:57→17:16)
--- NOTE | 2020-12-29 02:44 | PN ---
PROGRESS NOTE DATE OF SERVICE: 12/28/2020 REASON FOR FOLLOWUP: Pneumonia, lung abscess. INTERVAL HISTORY: Patient is afebrile. The patient is breathing more comfortably. The patient denies having any chest pain. Occasional cough which is dry. No nausea, no vomiting. No abdominal pain. No diarrhea. PHYSICAL EXAMINATION: Blood pressure 124/56, pulse of 67, temperature of 98.1. He is 99% on 2 L nasal cannula. General description is a middle-aged male lying in bed in no distress. Respiratory system: Unlabored breathing, decreased intensity of breath sounds. No wheeze. Heart S1, S2. Regular rate and rhythm. Abdomen soft, no tenderness. LABS: Hemoglobin is 10.1, white count 15.8, creatinine 0.87. Cultures are currently pending. DIAGNOSTIC IMPRESSION AND PLAN: Patient with pneumonia and lung abscess, status post chest tube placement. X-rays with interval improvement. Patient is covered with Unasyn and vanco to continue while waiting for the culture to finalize and monitor clinical course closely. MMODL / IJN: [id number] /
[2020-12-29] MEDS: KETOROLAC 15 MG/ML 1 ML VIAL IVP PRN ×3 (05:13→17:15)
[2020-12-29] MEDS: AMPICILLIN-SULBACTAM 3 GM in SODIUM CHLORIDE 0.9% 100 ML IVPB SCH ×4 (05:16→23:04)
[2020-12-29 05:51] LABS: Glucose,Whole Blood 82 mg/dL (75-99)
[2020-12-29] MEDS: INSULIN ASPART (NovoLOG) 100 UNIT/ML VIAL SQ SCH ×4 (06:42→20:50)
[2020-12-29] MEDS: carvediloL 12.5 MG TAB PO SCH ×2 (06:43→17:17)
--- NOTE | 2020-12-29 08:20 | XR ---
EXAMINATION TYPE: One view portable chest DATE OF EXAM: 12/29/2020 COMPARISON: 12/28/2020 INDICATION: Right-sided lung abscess TECHNIQUE: Single frontal view of the chest is obtained. FINDINGS: The heart size is normal. The pulmonary vasculature is normal. There is a consolidation at the left lung base. Correlate for pneumonia. Right side drainage catheter remains present. IMPRESSION: 1. Left lower lobe infiltrate. Correlate for pneumonia. 2. Right-sided drainage catheter remains present
[2020-12-29] MEDS: SYMBICORT 160-4.5 MCG INHALER INHALATION SCH ×2 (08:40→20:15)
[2020-12-29] MEDS: ASPIRIN 81 MG PO SCH (08:41)
[2020-12-29] MEDS: hydrALAZINE HCL 50 MG TAB PO SCH ×2 (08:41→20:50)
[2020-12-29] MEDS: IPRATROPIUM-ALBUTEROL 3 ML NEB INHALATION SCH ×4 (08:41→20:15)
[2020-12-29] MEDS: buPROPion SR 150 MG TABLET.ER PO SCH ×2 (08:41→20:50)
[2020-12-29] MEDS: ATORVASTATIN 20 MG TAB PO SCH (08:41)
[2020-12-29] MEDS: VALSARTAN 80 MG TAB PO SCH (08:41)
[2020-12-29] MEDS: amLODIPine 5 MG TAB PO SCH (08:41)
[2020-12-29] MEDS: methylPREDNISolone 4 MG TAB TAPER PO SCH (08:42)
[2020-12-29] MEDS: FAMOTIDINE 20 MG TAB PO SCH ×2 (08:42→20:50)
[2020-12-29] MEDS: VANCOMYCIN 1,500 MG in SODIUM CHLORIDE 0.9% 250 ML IVPB SCH ×2 (08:43→17:16)
[2020-12-29] MEDS: HEPARIN SODIUM,PORCINE/PF 5,000 UNIT/0.5 ML SYRINGE SQ SCH ×2 (08:43→20:50)
[2020-12-29] MEDS: HYDROmorphone 0.5 MG/0.5 ML SYRINGE IVP PRN (08:50)
[2020-12-29 08:58] LABS: African American GFR (CKD) >90 (>60 ml/min/1.73 sqM); Anion Gap 9 mmol/L; Blood Urea Nitrogen 14 mg/dL (9-20); Calcium 8.7 mg/dL (8.4-10.2); Carbon Dioxide 25 mmol/L (22-30); Chloride 102 mmol/L (98-107); Glucose 84 mg/dL (74-99); Non-African American GFR(CKD) >90 (>60 ml/min/1.73 sqM); Sodium 136 mmol/L (137-145)
[2020-12-29 09:28] LABS: Potassium 5.6 mmol/L (3.5-5.1)
[2020-12-29 11:40] LABS: Glucose,Whole Blood 112 mg/dL (75-99)
--- NOTE | 2020-12-29 14:24 | P.PN ---
Subjective Progress Note Date: 12/29/20 Principal diagnosis: Empyema. Right lung abscess, and pneumonia, and suspect empyema. 55-year-old male patient is presenting today with extensive right-sided chest wall pain radiating to his back which has some pleuritic in nature. The patient's had a voltage criteria of LVH on his EKG. He was taken to catheterization and the cardiac catheterization do not to be within normal limits. A CT angiogram of the chest and the thoracic aorta was done and the CT angiogram showed the possibility of a right lower lobe lung abscess measuring 6.3 cm in size in addition to a right-sided pleural effusion which was small. The ascending aorta was measuring 4.1 cm in size. The patient has cardiomegaly. Pulmonary consultation was requested accordingly. Currently is on oxygen on 2 L. Is quite uncomfortable and is having pain along his lites side of the chest and he is unable to take a deep breath. White cell count of 14.7. D-dimer is at 2.34. Creatinine is at 1.3. Troponins are negative. ProBNP level is at 475. Noted the patient was in the emergency department on 12/15/2020. At that time he came in with five-day history of shortness of breath and chills and body ac hes. He was seen by the emergency department staff and a chest x-ray was given at that time on 12/15/2020 of the chest x-ray showed no significant acute abnormality. There was a suspicious right basilar infiltrate. At that point, the patient was given Zithromax and the patient was given a 5 day course of prednisone 20 mg and he was discharged home. Over the past week, the patient continued to be symptomatic and short of breath and he was not bringing up much sputum. No hemoptysis. His condition got worse and for that reason he presented to the hospital. Note that around 2 weeks ago, he was hospitalized in [place] for an RSV infection of the lung and COPD exacerbation. He is a chroni c smoker and he has [id number] smoking history and he quit smoking in September 2020. He is known to have COPD. Other comorbid conditions include hypertension, hyperlipidemia, hypertensive cardiomyopathy and previous history of depression. No history of any substance abuse. Reevaluated today on 12/22/2020, patient remains on the cardiac floor, continues to have pain especially upon taking a deep breath, pain is mostly on the right side/right base. Patient was seen yesterday by Dr. Johnston, and the workup seems to be mostly consistent with right lung abscess and right lower lobe pneumonia. Patient remains on antibiotics. Including vancomycin and Zosyn. Will recommend infectious disease consultation on this patient.. He is to have leukocytosis with WBC count of 24.2 hemoglobin 11.9. Electrolytes are normal renal profile is normal The patient is seen today 12/23/2020 in follow-up on the selective care unit. He is currently resting fairly comfortably in bed. Still having some right- sided chest discomfort. Pain on inhalation. Blood culture pending. Sputum culture pending. Sodium 133. Potassium 4.7. Creatinine 0.85. Vancomycin trough 9.9. He remains on vancomycin and Zosyn. Continued on Symbicort and DuoNeb inhalations. 0.9 normal saline at 75 ML's per hour. The patient is seen today 12/24/2020 in follow-up on the selective care unit. He is awake and alert in no acute distress. Resting in bed. Maintaining O2 saturations in the mid 90s on 2 L/m per nasal cannula. He's been afebrile. Blood and sputum cultures are pending. Today's chest x-ray showed significant increase in the fluid of the right lung. Ultrasound of the chest reveals an 8.8 cm pocket however the fluid is non-simple with internal echoes. Pus or internal infection is suspected. Small left-sided pleural effusion. He remains on vancomycin and Unasyn. Remains on bronchodilators. Reevaluated today on 12/25/2020, patient is scheduled to undergo pigtail catheter placement for suspected empyema, secondary to right lower lobe pneumonia and lung. Discussed his situation with Dr. Frausto earlier today, and he is planning ultrasound-guided pigtail catheter placement to drain the right pleural effusion which is suspected to be empyema related unless for otherwise. I also discussed the patient's condition with thoracic surgery to consider alteplase injections after pigtail catheter placement. And the fluid seems to be loculated. The patient is seen today 12/26/2020 in follow-up on the selective care unit. He did undergo a right sided pigtail catheter placement yesterday by [facility]. Presently 700 mL of purulent drainage returned. He is currently resting fairly comfortably in bed. Awake and alert. Maintaining O2 saturations in the 90s on 2 L/m per nasal cannula. He remains on vancomycin and Unasyn. Pleural fluid cultures pending. White count improved to 26.0. Hemoglobin 10.1. Sodium 138. Potassium 3.6. Bicarb 24. Creatinine 0.77. Glucose 107. Today's chest x-ray shows significantly improved air space opacity throughout the right lung. There is small bilateral effusions right greater than left with adjacent atelectasis. Patient is seen today in follow-up selective care unit. He is resting quite comfortably in bed. Awake and alert in no acute distress. Maintaining O2 saturations in the 90s on 2 L/m per nasal cannula. Chest x-ray shows no significant changes. Pigtail catheter in place. Pseudotumor in the the right minor fissure. 0.9 normal saline at 75 ML's per hour. He remains on antibiotics in the form of vancomycin and Unasyn. Cultures are pending. White count 16.9. Hemoglobin 9.6. Sodium 139. Potassium 3.3. Bicarb 27. Creatinine 0.86. Vancomycin trough 17.1. Remains on bronchodilators, Medrol Dosepak. Patient was reevaluated today on 12/28/20, remains on the cardiac floor, patient seems to be comfortable, continues to have a pigtail catheter in place, patient is gradually getting better, continues to have significant amount of drainage from the right sided chest tube, he is now on 2 L nasal cannula, O2 sats is 99%, he is doing great with incentive spirometry achieving over 1500 ML. Continues t o have cloudy serous drainage from the right sided pigtail catheter, and he had an output of 500 ML in the last 24 hours. Patient was given a second dose of alteplase as/dornase yesterday, this was given for the pigtail catheter. Remains on antibiotics, cultures remain negative. No growth so far. Although the fluid from the right pleural space did show evidence of exudate, and fluid glucose was extremely low Progress note dated 12/29/2020. The patient is again seen today in the cardiac floor, room 365. He sitting up in the chair. He is getting a couple liters of nasal O2. The pigtail catheter is still in place in the right chest. Output over last 24 hours was still significant, and the pigtail catheter may not be yet ready to come out. Clinically, he is doing well. He denies any pain or shortness of breath. Labs from today include a sodium 136, potassium initially 5.6, repeat 4, chlorides 102, CO2 25, anion gap 9, BUN 14, creatinine 0.85. The chest x-ray from today shows a left lower lobe infiltrate, with possible pneumonia versus atelectasis, and the right sided pigtail catheter, currently still in place. The right lower chest area looks excellent. Thus far, microbiologic studies have all been negative. The patient remains on Unasyn and vancomycin [facility]. Objective - Vital Signs Vital signs: Vital Signs Temp 98 F 12/29/20 08:40 Pulse 68 12/29/20 12:43 Resp 18 12/29/20 08:40 BP 152/79 12/29/20 08:40 Pulse Ox 98 12/29/20 08:47 Intake & Output 12/28/20 12/29/20 12/29/20 18:59 06:59 18:59 Intake Total 1050 10 780 Output Total 1380 2590 0 Balance -330 -2580 780 Intake: IV 10 Invasive Line 5 10 Intake, IV Titration 1050 Amount Ampicillin-Sulbactam 3 gm 200 In Sodium Chloride 0.9% 100 ml @ 200 mls/hr IVPB Q6HR [facility] Rx#:[id number] Sodium Chloride 0.9% 1, 600 000 ml @ 75 mls/hr IV . [id number] [facility] Rx#:[id number] Vancomycin 1,500 mg In 250 Sodium Chloride 0.9% 250 ml @ 125 mls/hr IVPB Q8HR [facility] Rx#:[id number] Oral 780 Output: Chest Tube Drainage 230 90 0 Chest Tube Right 230 90 0 Urine 1150 2500 Other: Voiding Method Toilet Toilet Toilet Urinal Urinal Urinal # Voids 1 # Bowel Movements 1 1 - Exam No acute distress, oriented 3. No conversational dyspnea or use of accessory muscles. HEENT examination is grossly unremarkable. Neck supple. Full range of motion. No adenopathy thyromegaly or neck vein distention. Cardiovascular examination reveals regular rhythm rate. S1-S2 normal. No S3 or S4. No discernible murmur noted. Heart rate 68 bpm. Lungs reveal bibasilar rhonchi. No crackles or wheezes. Breath sounds equal bilaterally. Pigtail catheter still in place in the right chest. Abdomen soft bowel sounds are heard. No masses or tenderness. Extremities are intact. No cyanosis clubbing or edema. Skin is without rash or lesion. Neurologic examination is brief but nonfocal. - Labs CBC & Chem 7: 12/28/20 07:44 12/29/20 11:03 Labs: Abnormal Lab Results - Last 24 Hours (Table) 12/25/20 12/28/20 12/28/20 Range/Units 00:00 16:23 19:33 Sodium (137-145) mmol/L Potassium (3.5-5.1) mmol/L POC Glucose (mg/dL) 147 H 118 H (75-99) mg/dL Pleur Adenosine Deamin 102 H (0-30) U/L 12/29/20 12/29/20 Range/Units 07:45 11:38 Sodium 136 L (137-145) mmol/L Potassium 5.6 H (3.5-5.1) mmol/L POC Glucose (mg/dL) 112 H (75-99) mg/dL Pleur Adenosine Deamin (0-30) U/L Microbiology - Last 24 Hours (Table) 12/25/20 13:50 Gram Stain - Preliminary Pleural Fluid Body Fluid Culture - Preliminary Assessment and Plan Assessment: Acute community-acquired pneumonia, right lower lobe, complicated by parapneumonic effusion/lung abscess/empyema. Status post pigtail catheter insertion, antibiotics, and instillation of TPA. Acute hypoxemic respiratory failure. Pleurisy, secondary to above. History of underlying COPD, inactive. Hypertensive cardiomyopathy. Hyperlipidemia. Normal coronary arteriography. Plan: Plan dated 12/29/2020. The patient had over 300 mL of drainage from the right pigtail catheter. It may not come out today for that reason. The patient remains on Unasyn and vancomycin as antibiotics as per infectious diseases. The patient has been getting TPA/Dornase, inserted through the pigtail catheter, to enhance clearance of infection and drainage. The patient should continue on hourly use of the incentive spirometer, as well as deep breathing, coughing, and clearing of secretions. Additional recommendations and suggestions are forthcoming. Also, we will continue to follow this patient and make recommendations where appropriate. Thus far, all microbiology has been negative. Time with Patient: Less than 30
[2020-12-29] MEDS ORDERED: VANCOMYCIN TROUGH DUE 1 EACH MISC MISCELLANE ONE (15:00)
--- NOTE | 2020-12-29 15:17 | P.PN ---
Subjective Progress Note Date: 12/29/20 Principal diagnosis: Right lower lobe pneumonia, present on admission, right lung abscess as well as right pleural effusion, chest pain without obstructive coronary artery disease on heart catheterization, leukocytosis, shortness of breath. Past medical history significant for cardiomyopathy, COPD, previous tobacco dependence with recent smoking cessation in September 2020, hypertension, hyperlipidemia, depression, daily EtOH use, recent RSV infection. POD #4 placement of right sided pigtail catheter by interventional radiology The patient was seen in follow-up today 12/29/2020 at his bedside on the cardiac stepdown unit. Currently he is sitting up to bedside chair, is awake, alert and oriented 3 and is in no acute distress. Denies any complaints of pain or shortness of breath at this time. Continues to report that he feels better on a daily basis. Oxygen saturations are 99% on 2 L nasal cannula and he is achieving 1500 mL on his incentive spirometry. Right chest pigtail catheter remains in place to low continuous wall suction -20 cm H2O with no air leak pres ent. Draining thin serous cloudy drainage with 250 mL output the last 24 hours. He remains afebrile the last 24 hours. Infectious disease is following the patient and is managing his antibiotics. He continues on Unasyn and vancomycin. His cultures remain showing no growth. Objective - Vital Signs Vital signs: Vital Signs Temp 98 F 12/29/20 08:40 Pulse 74 12/29/20 08:41 Resp 18 12/29/20 08:40 BP 152/79 12/29/20 08:40 Pulse Ox 98 12/29/20 08:47 Intake & Output 12/28/20 12/29/20 12/29/20 18:59 06:59 18:59 Intake Total 1050 10 Output Total 1380 2590 Balance -330 -2580 Intake: IV 10 Invasive Line 5 10 Intake, IV Titration 1050 Amount Ampicillin-Sulbactam 3 gm 200 In Sodium Chloride 0.9% 100 ml @ 200 mls/hr IVPB Q6HR [facility] Rx#:[id number] Sodium Chloride 0.9% 1, 600 000 ml @ 75 mls/hr IV . [id number] [facility] Rx#:[id number] Vancomycin 1,500 mg In 250 Sodium Chloride 0.9% 250 ml @ 125 mls/hr IVPB Q8HR [facility] Rx#:[id number] Output: Chest Tube Drainage 230 90 Chest Tube Right 230 90 Urine 1150 2500 Other: Voiding Method Toilet Toilet Urinal Urinal # Voids 1 # Bowel Movements 1 - Exam CONSTITUTIONAL: Awake and alert, appears comfortable. RESPIRATORY: Lungs sounds diminished bilaterally, right greater than left. Respirations are symmetrical and non-labored. Currently on 2 L nasal cannula with oxygen saturation 99%. Right sided pigtail catheter present draining thin serous cloudy fluid, 250 mL in the last 24 hours. CARDIOVASCULAR: S1, S2 present. Regular rate and rhythm, sinus rhythm on telemetry. Palpable peripheral pulses bilaterally. No edema present. GASTROINTESTINAL: Abdomen soft, nontender, nondistended. Active bowel sounds present 4 quadrants. Tolerating diet. GENITOURINARY: Continues to void. INTEGUMENTARY: Skin is warm and dry with no clubbing or cyanosis. NEUROLOGIC: Cranial nerves II through XII intact, normal coordination, no obvious motor or sensory deficits, speech is normal. MUSKULOSKELETAL: Able to move all extremities, strength equal bilaterally, normal posture. PSYCHIATRIC: Alert and oriented to person place and time, appropriate affect, intact judgment and insight. - Allied health notes Allied health notes reviewed: nursing - Labs CBC & Chem 7: 12/28/20 07:44 12/29/20 11:03 Labs: Abnormal Lab Results - Last 24 Hours (Table) 12/28/20 12/28/20 12/28/20 Range/Units 11:34 16:23 19:33 POC Glucose (mg/dL) 101 H 147 H 118 H (75-99) mg/dL Microbiology - Last 24 Hours (Table) 12/25/20 13:50 Gram Stain - Preliminary Pleural Fluid Body Fluid Culture - Preliminary - Imaging and Cardiology Chest x-ray: report reviewed, image reviewed Assessment and Plan Assessment: 1. Right lower lobe pneumonia, present on admission, right lung abscess as well as right pleural effusion, S/P right sided pigtail insertion by IR, cytology/culture pending 2. Chest pain, no obstructive coronary artery disease on heart catheterization 3. Leukocytosis 4. Shortness of breath 5. History of cardiomyopathy 6. COPD 7. Previous tobacco dependence with recent smoking cessation in September 2020 8. Hypertension 9. Hyperlipidemia 10. Depression 11. Daily EtOH use 12. Recent RSV infection, lab test for RSV negative 12/15/20, also Covid/Influenza A & B negative Plan: 1. We keep his right pleural pigtail catheter in place and monitor his output for the next 24 hours. 2. Continue antibiotics per infectious disease management and recommendations and based on sensitivites once pleural fluid cultures resulted. 3. Encourage incentive spirometry use 10 times every hour while awake. Bronchodilators, steroids per pulmonology management. 4. Will review daily labs and chest x-ray. 5. Increase activity as tolerated. Out of bed for all meals. 6. Medical management of other comorbidities per primary care service. 7. More recommendations to follow based on patient's clinical course. Time with Patient: Greater than 30
[2020-12-29 16:29] LABS: Glucose,Whole Blood 126 mg/dL (75-99)
[2020-12-29 20:05] LABS: Glucose,Whole Blood 137 mg/dL (75-99)
[2020-12-30] MEDS: KETOROLAC 15 MG/ML 1 ML VIAL IVP PRN ×3 (00:18→14:55)
[2020-12-30] MEDS: VANCOMYCIN 1,500 MG in SODIUM CHLORIDE 0.9% 250 ML IVPB SCH (00:18)
[2020-12-30] MEDS: HYDROmorphone 0.5 MG/0.5 ML SYRINGE IVP PRN (02:25)
[2020-12-30] MEDS: SODIUM CHLORIDE 0.9% 1,000 ML IV SCH ×2 (02:30→14:56)
[2020-12-30 06:15] LABS: Glucose,Whole Blood 97 mg/dL (75-99)
[2020-12-30] MEDS: AMPICILLIN-SULBACTAM 3 GM in SODIUM CHLORIDE 0.9% 100 ML IVPB SCH ×4 (06:19→23:35)
[2020-12-30] MEDS: carvediloL 12.5 MG TAB PO SCH ×2 (06:19→17:22)
[2020-12-30] MEDS: INSULIN ASPART (NovoLOG) 100 UNIT/ML VIAL SQ SCH ×4 (06:21→21:03)
--- NOTE | 2020-12-30 07:01 | XR ---
EXAMINATION TYPE: XR chest 1V portable DATE OF EXAM: 12/30/2020 CLINICAL HISTORY: Right lung abscess progress study. TECHNIQUE: Single AP portable upright view of the chest is obtained. COMPARISON: Chest x-ray from one day earlier and older studies. FINDINGS: Chronic parenchymal changes with persistent posterior right basilar pigtail catheter and s mall left pleural effusion with left basilar acute atelectasis and/or infiltrate. No pneumothorax see n bilaterally. Cardiac silhouette size stable and within normal limits. Osseous structures are intact . IMPRESSION: Overall stable findings, right basilar pleural drainage catheter redemonstrated. Stable small left pleural effusion and associated left basilar acute atelectasis and/or infiltrate. No sign ificant change from one day earlier.
[2020-12-30 07:47] LABS: Basophils % (A) 0 %; Eosinophils # (A) 0.3 k/uL (0-0.7); Eosinophils % (A) 2 %; HCT 35.8 % (39.0-53.0); HGB 11.2 gm/dL (13.0-17.5); Lymphocytes # (A) 2.1 k/uL (1.0-4.8); Lymphocytes % (A) 16 %; MCH 31.6 pg (25.0-35.0); MCHC 31.4 g/dL (31.0-37.0); MCV 100.5 fL (80.0-100.0); Macrocytosis Slight; Mean Platelet Volume 7.8; Monocytes # (A) 0.5 k/uL (0-1.0); Monocytes % (A) 4 %; Neutrophils # (A) 10.1 k/uL (1.3-7.7); Neutrophils % (A) 76 %; Platelet Count 502 k/uL (150-450); RBC 3.56 m/uL (4.30-5.90); RDW 14.2 % (11.5-15.5); WBC 13.3 k/uL (3.8-10.6)
[2020-12-30 08:08] LABS: African American GFR (CKD) >90 (>60 ml/min/1.73 sqM); Anion Gap 10 mmol/L; Blood Urea Nitrogen 12 mg/dL (9-20); Calcium 9.3 mg/dL (8.4-10.2); Carbon Dioxide 26 mmol/L (22-30); Chloride 101 mmol/L (98-107); Glucose 91 mg/dL (74-99); Non-African American GFR(CKD) >90 (>60 ml/min/1.73 sqM); Potassium 4.1 mmol/L (3.5-5.1); Sodium 137 mmol/L (137-145)
[2020-12-30] MEDS: SYMBICORT 160-4.5 MCG INHALER INHALATION SCH ×2 (08:37→20:21)
[2020-12-30] MEDS: IPRATROPIUM-ALBUTEROL 3 ML NEB INHALATION SCH ×4 (08:40→20:21)
[2020-12-30] MEDS: buPROPion SR 150 MG TABLET.ER PO SCH ×2 (09:19→21:14)
[2020-12-30] MEDS: amLODIPine 5 MG TAB PO SCH (09:19)
[2020-12-30] MEDS: hydrALAZINE HCL 50 MG TAB PO SCH ×2 (09:19→21:14)
[2020-12-30] MEDS: FAMOTIDINE 20 MG TAB PO SCH ×2 (09:19→21:14)
[2020-12-30] MEDS: VALSARTAN 80 MG TAB PO SCH (09:19)
[2020-12-30] MEDS: HEPARIN SODIUM,PORCINE/PF 5,000 UNIT/0.5 ML SYRINGE SQ SCH ×2 (09:19→21:14)
[2020-12-30] MEDS: ASPIRIN 81 MG PO SCH (09:19)
[2020-12-30] MEDS: ATORVASTATIN 20 MG TAB PO SCH (09:19)
--- NOTE | 2020-12-30 11:07 | CT ---
EXAMINATION TYPE: CT chest wo con DATE OF EXAM: 12/30/2020 COMPARISON: Chest x-ray earlier today. Prior CT 9 days ago. HISTORY: shortness of breath, empyema CT DLP: 545.4 mGycm. Automated Exposure Control for Dose Reduction was Utilized. TECHNIQUE: CT scan of the thorax is performed without IV contrast. FINDINGS: LUNGS: Persistent tiny right pleural fluid collection with posterior pigtail pleural drainage cathete r. Medial right basilar thick-walled cavitary lesion shows improvement or diminished size with small air-fluid level measuring roughly 2.0 cm in size axial image 49. Small to tiny left pleural effusion slightly larger from prior. Associated left basilar compressive atelectasis noted. No pneumothorax se en bilaterally. MEDIASTINUM: Lack of IV contrast is noted to limit evaluation for mediastinal and especially hilar ad enopathy. There are no definitive new greater than 1 cm mediastinal lymph nodes. Stable small pericar dial effusion is seen anteriorly. Stable mild cardiomegaly. Stable prominence of ascending aorta up t o 4.1 cm. OTHER: No additional significant abnormality is seen. IMPRESSION: Improving posterior medial right basilar thick-walled fluid collection or pulmonary absce ss. Improving right-sided pleural effusion with percutaneous drainage catheter. Small to tiny left pl eural effusion slightly larger from prior with associated left basilar compressive atelectasis.
[2020-12-30 11:32] LABS: Glucose,Whole Blood 130 mg/dL (75-99)
[2020-12-30] MEDS ORDERED: VANCOMYCIN 1,250 MG in SODIUM CHLORIDE 0.9% 250 ML IVPB SCH (12:00)
[2020-12-30] MEDS ORDERED: NALOXONE 0.4 MG/ML 1 ML VIAL IV PRN (12:40)
--- NOTE | 2020-12-30 13:12 | PN ---
PROGRESS NOTE DATE OF SERVICE: 12/30/2020 REASON FOR FOLLOWUP: Pneumonia and lung abscess. INTERVAL HISTORY: The patient is afebrile. The patient is currently breathing comfortably. The patient denies having any chest pain. No nausea, no vomiting. No abdominal pain or diarrhea. PHYSICAL EXAMINATION: Blood pressure is 128/74, pulse of 77, temperature 98.3. He is 96% on room air. General description is a middle-aged male up in the room in no distress. RESPIRATORY SYSTEM: Unlabored breathing. Decreased intensity of breath sounds. No wheeze. HEART: S1, S2. Regular rate and rhythm. ABDOMEN: Soft. No tenderness. LABS: Culture has been negative. He did have a repeat CT which was reviewed with the radiologist, Dr. Thompson. Overall almost resolution of his lung abscess. DIAGNOSTIC IMPRESSION AND PLAN: Patient with pneumonia and abscess, status post chest tube placement with a repeat CT scan that shows significant improvement, with no resistant bacteria grown in the culture. The patient seems to be slightly reluctant with outpatient antibiotic therapy. Will plan on oral Augmentin 875 b.i.d. for 2 to 3 weeks and close outpatient followup. MMODL / IJN: [id number] /
--- NOTE | 2020-12-30 13:44 | P.PN ---
Subjective Progress Note Date: 12/30/20 Principal diagnosis: Right lower lobe pneumonia, present on admission, right lung abscess as well as right pleural effusion, chest pain without obstructive coronary artery disease on heart catheterization, leukocytosis, shortness of breath. Past medical history significant for cardiomyopathy, COPD, previous tobacco dependence with recent smoking cessation in September 2020, hypertension, hyperlipidemia, depression, daily EtOH use, recent RSV infection. POD #5 placement of right sided pigtail catheter by interventional radiology The patient was seen in follow-up today 12/30/2020 at his bedside on the cardiac stepdown unit. Currently he is sitting up to bedside chair, is awake, alert and oriented 3 and is in no acute distress. Denies any complaints of pain or shortness of breath at this time. Oxygen saturations are 96% on room air and he is achieving 1500 mL on his incentive spirometry. Right pleural pigtail catheter remains in place to low continuous wall suction -20 cm H2O. No air leak is present. No drainage output in the last 24 hours. The patient continu es to report that he is feeling improved on a daily basis. He is anxious to be discharged home. Remote telemetry showing normal sinus rhythm heart rate 73 BPM. Cultures remained to show no growth and he remains on antibiotics managed by infectious disease. His lab results this morning show his WBC count continued to trend downward and is 13.3 today, hemoglobin 11.2, platelets 502, BUN 12 and creatinine 0.95. Soft tissue cytology specimen results remain pending. Objective - Vital Signs Vital signs: Vital Signs Temp 98.3 F 12/30/20 02:00 Pulse 77 12/30/20 02:00 Resp 16 12/30/20 02:00 BP 128/74 12/30/20 02:00 Pulse Ox 96 12/30/20 02:00 Intake & Output 12/29/20 12/30/20 12/30/20 18:59 06:59 18:59 Intake Total 2080 180 Output Total 0 1800 Balance 2080 -1800 180 Intake: Intake, IV Titration 1300 Amount Ampicillin-Sulbactam 3 gm 200 In Sodium Chloride 0.9% 100 ml @ 200 mls/hr IVPB Q6HR [facility] Rx#:[id number] Sodium Chloride 0.9% 1, 600 000 ml @ 75 mls/hr IV . [id number] [facility] Rx#:[id number] Vancomycin 1,500 mg In 500 Sodium Chloride 0.9% 250 ml @ 125 mls/hr IVPB Q8HR [facility] Rx#:[id number] Oral 780 180 Output: Chest Tube Drainage 0 0 Chest Tube Right 0 0 Urine 1800 Other: Voiding Method Toilet Toilet Urinal Urinal # Voids 1 1 # Bowel Movements 1 - Exam CONSTITUTIONAL: Awake and alert, appears comfortable. RESPIRATORY: Lungs sounds diminished bilaterally, right greater than left. Respirations are symmetrical and non-labored. Currently on room air with oxygen saturation 96%. Right sided pigtail catheter present and connected to low continuous wall suction -20 cm H2O. No air leak is present. No drainage in the last 24 hours. CARDIOVASCULAR: S1, S2 present. Regular rate and rhythm, sinus rhythm on telemetry. Palpable peripheral pulses bilaterally. No edema present. GASTROINTESTINAL: Abdomen soft, nontender, nondistended. Active bowel sounds present 4 quadrants. Tolerating diet. GENITOURINARY: Continues to void. INTEGUMENTARY: Skin is warm and dry with no clubbing or cyanosis. NEUROLOGIC: Cranial nerves II through XII intact, normal coordination, no obvious motor or sensory deficits, speech is normal. MUSKULOSKELETAL: Able to move all extremities, strength equal bilaterally, normal posture. PSYCHIATRIC: Alert and oriented to person place and time, appropriate affect, intact judgment and insight. - Allied health notes Allied health notes reviewed: nursing - Labs CBC & Chem 7: 12/30/20 07:19 12/30/20 07:19 Labs: Abnormal Lab Results - Last 24 Hours (Table) 12/25/20 12/29/20 12/29/20 Range/Units 00:00 07:45 11:38 WBC (3.8-10.6) k/uL RBC (4.30-5.90) m/uL Hgb (13.0-17.5) gm/dL Hct (39.0-53.0) % MCV (80.0-100.0) fL Plt Count (150-450) k/uL Neutrophils # (1.3-7.7) k/uL Sodium 136 L (137-145) mmol/L Potassium 5.6 H (3.5-5.1) mmol/L POC Glucose (mg/dL) 112 H (75-99) mg/dL Pleur Adenosine Deamin 102 H (0-30) U/L 12/29/20 12/29/20 12/30/20 Range/Units 16:27 20:04 07:19 WBC 13.3 H (3.8-10.6) k/uL RBC 3.56 L (4.30-5.90) m/uL Hgb 11.2 L (13.0-17.5) gm/dL Hct 35.8 L (39.0-53.0) % MCV 100.5 H (80.0-100.0) fL Plt Count 502 H (150-450) k/uL Neutrophils # 10.1 H (1.3-7.7) k/uL Sodium (137-145) mmol/L Potassium (3.5-5.1) mmol/L POC Glucose (mg/dL) 126 H 137 H (75-99) mg/dL Pleur Adenosine Deamin (0-30) U/L Microbiology - Last 24 Hours (Table) 12/25/20 13:50 Anaerobic Culture - Final Pleural Fluid 12/25/20 13:50 Gram Stain - Final Pleural Fluid Body Fluid Culture - Final - Imaging and Cardiology Chest x-ray: report reviewed, image reviewed Assessment and Plan Assessment: 1. Right lower lobe pneumonia, present on admission, right lung abscess as well as right pleural effusion, S/P right sided pigtail insertion by IR, cytology/culture pending 2. Chest pain, no obstructive coronary artery disease on heart catheterization 3. Leukocytosis 4. Shortness of breath 5. History of cardiomyopathy 6. COPD 7. Previous tobacco dependence with recent smoking cessation in September 2020 8. Hypertension 9. Hyperlipidemia 10. Depression 11. Daily EtOH use 12. Recent RSV infection, lab test for RSV negative 12/15/20, also Covid/Influenza A & B negative Plan: 1. We will remove his right pleural pigtail catheter today. 2. Continue antibiotics per infectious disease management and recommendations and based on sensitivites once pleural fluid cultures resulted. 3. Encourage incentive spirometry use 10 times every hour while awake. Bronchodilators, steroids per pulmonology management. 4. Will review daily labs and chest x-ray. 5. Increase activity as tolerated. Out of bed for all meals. 6. Medical management of other comorbidities per primary care service. 7. More recommendations to follow based on patient's clinical course. Time with Patient: Greater than 30
--- NOTE | 2020-12-30 15:17 | P.PN ---
Subjective Progress Note Date: 12/30/20 Principal diagnosis: Empyema. Right lung abscess, and pneumonia, and suspect empyema. 55-year-old male patient is presenting today with extensive right-sided chest wall pain radiating to his back which has some pleuritic in nature. The patient's had a voltage criteria of LVH on his EKG. He was taken to catheterization and the cardiac catheterization do not to be within normal limits. A CT angiogram of the chest and the thoracic aorta was done and the CT angiogram showed the possibility of a right lower lobe lung abscess measuring 6.3 cm in size in addition to a right-sided pleural effusion which was small. The ascending aorta was measuring 4.1 cm in size. The patient has cardiomegaly. Pulmonary consultation was requested accordingly. Currently is on oxygen on 2 L. Is quite uncomfortable and is having pain along his lites side of the chest and he is unable to take a deep breath. White cell count of 14.7. D-dimer is at 2.34. Creatinine is at 1.3. Troponins are negative. ProBNP level is at 475. Noted the patient was in the emergency department on 12/15/2020. At that time he came in with five-day history of shortness of breath and chills and body ac hes. He was seen by the emergency department staff and a chest x-ray was given at that time on 12/15/2020 of the chest x-ray showed no significant acute abnormality. There was a suspicious right basilar infiltrate. At that point, the patient was given Zithromax and the patient was given a 5 day course of prednisone 20 mg and he was discharged home. Over the past week, the patient continued to be symptomatic and short of breath and he was not bringing up much sputum. No hemoptysis. His condition got worse and for that reason he presented to the hospital. Note that around 2 weeks ago, he was hospitalized in [place] for an RSV infection of the lung and COPD exacerbation. He is a chroni c smoker and he has [id number] smoking history and he quit smoking in September 2020. He is known to have COPD. Other comorbid conditions include hypertension, hyperlipidemia, hypertensive cardiomyopathy and previous history of depression. No history of any substance abuse. Reevaluated today on 12/22/2020, patient remains on the cardiac floor, continues to have pain especially upon taking a deep breath, pain is mostly on the right side/right base. Patient was seen yesterday by Dr. Johnston, and the workup seems to be mostly consistent with right lung abscess and right lower lobe pneumonia. Patient remains on antibiotics. Including vancomycin and Zosyn. Will recommend infectious disease consultation on this patient.. He is to have leukocytosis with WBC count of 24.2 hemoglobin 11.9. Electrolytes are normal renal profile is normal The patient is seen today 12/23/2020 in follow-up on the selective care unit. He is currently resting fairly comfortably in bed. Still having some right- sided chest discomfort. Pain on inhalation. Blood culture pending. Sputum culture pending. Sodium 133. Potassium 4.7. Creatinine 0.85. Vancomycin trough 9.9. He remains on vancomycin and Zosyn. Continued on Symbicort and DuoNeb inhalations. 0.9 normal saline at 75 ML's per hour. The patient is seen today 12/24/2020 in follow-up on the selective care unit. He is awake and alert in no acute distress. Resting in bed. Maintaining O2 saturations in the mid 90s on 2 L/m per nasal cannula. He's been afebrile. Blood and sputum cultures are pending. Today's chest x-ray showed significant increase in the fluid of the right lung. Ultrasound of the chest reveals an 8.8 cm pocket however the fluid is non-simple with internal echoes. Pus or internal infection is suspected. Small left-sided pleural effusion. He remains on vancomycin and Unasyn. Remains on bronchodilators. Reevaluated today on 12/25/2020, patient is scheduled to undergo pigtail catheter placement for suspected empyema, secondary to right lower lobe pneumonia and lung. Discussed his situation with Dr. Frausto earlier today, and he is planning ultrasound-guided pigtail catheter placement to drain the right pleural effusion which is suspected to be empyema related unless for otherwise. I also discussed the patient's condition with thoracic surgery to consider alteplase injections after pigtail catheter placement. And the fluid seems to be loculated. The patient is seen today 12/26/2020 in follow-up on the selective care unit. He did undergo a right sided pigtail catheter placement yesterday by [facility]. Presently 700 mL of purulent drainage returned. He is currently resting fairly comfortably in bed. Awake and alert. Maintaining O2 saturations in the 90s on 2 L/m per nasal cannula. He remains on vancomycin and Unasyn. Pleural fluid cultures pending. White count improved to 26.0. Hemoglobin 10.1. Sodium 138. Potassium 3.6. Bicarb 24. Creatinine 0.77. Glucose 107. Today's chest x-ray shows significantly improved air space opacity throughout the right lung. There is small bilateral effusions right greater than left with adjacent atelectasis. Patient is seen today in follow-up selective care unit. He is resting quite comfortably in bed. Awake and alert in no acute distress. Maintaining O2 saturations in the 90s on 2 L/m per nasal cannula. Chest x-ray shows no significant changes. Pigtail catheter in place. Pseudotumor in the the right minor fissure. 0.9 normal saline at 75 ML's per hour. He remains on antibiotics in the form of vancomycin and Unasyn. Cultures are pending. White count 16.9. Hemoglobin 9.6. Sodium 139. Potassium 3.3. Bicarb 27. Creatinine 0.86. Vancomycin trough 17.1. Remains on bronchodilators, Medrol Dosepak. Patient was reevaluated today on 12/28/20, remains on the cardiac floor, patient seems to be comfortable, continues to have a pigtail catheter in place, patient is gradually getting better, continues to have significant amount of drainage from the right sided chest tube, he is now on 2 L nasal cannula, O2 sats is 99%, he is doing great with incentive spirometry achieving over 1500 ML. Continues t o have cloudy serous drainage from the right sided pigtail catheter, and he had an output of 500 ML in the last 24 hours. Patient was given a second dose of alteplase as/dornase yesterday, this was given for the pigtail catheter. Remains on antibiotics, cultures remain negative. No growth so far. Although the fluid from the right pleural space did show evidence of exudate, and fluid glucose was extremely low Progress note dated 12/29/2020. The patient is again seen today in the cardiac floor, room 365. He sitting up in the chair. He is getting a couple liters of nasal O2. The pigtail catheter is still in place in the right chest. Output over last 24 hours was still significant, and the pigtail catheter may not be yet ready to come out. Clinically, he is doing well. He denies any pain or shortness of breath. Labs from today include a sodium 136, potassium initially 5.6, repeat 4, chlorides 102, CO2 25, anion gap 9, BUN 14, creatinine 0.85. The chest x-ray from today shows a left lower lobe infiltrate, with possible pneumonia versus atelectasis, and the right sided pigtail catheter, currently still in place. The right lower chest area looks excellent. Thus far, microbiologic studies have all been negative. The patient remains on Unasyn and vancomycin as [facility] Progress note dated 12/30/2020. This is a 55-year-old black male seen again in room 365. The patient's most recent chest x-ray shows near complete resolution of the inflammatory/infectious process in the right lower lung area. The chest x-ray does show some a bnormalities in the left side, and a computed tomography scan was ordered. I believe the pigtail catheter can come out, as output over the last 24 hours was minimal. We will let cardiothoracic know. Clinically, the patient is doing well. He denies any shortness of breath or chest pain. White count 13.3, hemoglobin 11.2, hematocrit 35.8, and platelet count 502,000. His electrolyte profile including sodium, potassium, chloride, CO2, anion gap, BUN, and creatinine are all normal. All microbiologic studies are negative. Chest x-ray shows some minimal atelectatic changes at the right lung base, and the drainage catheter is noted. Stable small left pleural effusion is also noted. Computed tomography scan of the chest reveals a small the tiny left pleural effusion slightly lethargic, with some left basilar compressive atelectasis. Currently, the only antibiotic the patient is on his Unasyn. Objective - Vital Signs Vital signs: Vital Signs Temp 98.4 F 12/30/20 13:52 Pulse 73 12/30/20 13:52 Resp 16 12/30/20 13:52 BP 138/84 12/30/20 13:52 Pulse Ox 97 12/30/20 13:52 Intake & Output 12/29/20 12/30/20 12/30/20 18:59 06:59 18:59 Intake Total 2080 700 Output Total 0 1800 0 Balance 2080 -1800 700 Intake: Intake, IV Titration 1300 Amount Ampicillin-Sulbactam 3 gm 200 In Sodium Chloride 0.9% 100 ml @ 200 mls/hr IVPB Q6HR [facility] Rx#:[id number] Sodium Chloride 0.9% 1, 600 000 ml @ 75 mls/hr IV . [id number] [facility] Rx#:[id number] Vancomycin 1,500 mg In 500 Sodium Chloride 0.9% 250 ml @ 125 mls/hr IVPB Q8HR [facility] Rx#:[id number] Oral 780 700 Output: Chest Tube Drainage 0 0 0 Chest Tube Right 0 0 0 Urine 1800 Other: Voiding Method Toilet Toilet Toilet Urinal Urinal Urinal # Voids 1 1 # Bowel Movements 1 - Exam No acute distress, oriented 3. No conversational dyspnea or use of accessory muscles. Room air saturation is 97%. HEENT examination is grossly unremarkable. Neck supple. Full range of motion. No adenopathy thyromegaly or neck vein distention. Cardiovascular examination reveals regular rhythm rate. S1-S2 normal. No S3 or S4. No discernible murmur noted. Heart rate 70 bpm. Lungs reveal bibasilar rhonchi. No crackles or wheezes. Breath sounds equal bilaterally. Pigtail catheter still in place in the right chest. Abdomen soft bowel sounds are heard. No masses or tenderness. Extremities are intact. No cyanosis clubbing or edema. Skin is without rash or lesion. Neurologic examination is brief but nonfocal. - Labs CBC & Chem 7: 12/30/20 07:19 12/30/20 07:19 Labs: Abnormal Lab Results - Last 24 Hours (Table) 12/29/20 12/29/20 12/30/20 Range/Units 16:27 20:04 07:19 WBC 13.3 H (3.8-10.6) k/uL RBC 3.56 L (4.30-5.90) m/uL Hgb 11.2 L (13.0-17.5) gm/dL Hct 35.8 L (39.0-53.0) % MCV 100.5 H (80.0-100.0) fL Plt Count 502 H (150-450) k/uL Neutrophils # 10.1 H (1.3-7.7) k/uL POC Glucose (mg/dL) 126 H 137 H (75-99) mg/dL 12/30/20 Range/Units 11:30 WBC (3.8-10.6) k/uL RBC (4.30-5.90) m/uL Hgb (13.0-17.5) gm/dL Hct (39.0-53.0) % MCV (80.0-100.0) fL Plt Count (150-450) k/uL Neutrophils # (1.3-7.7) k/uL POC Glucose (mg/dL) 130 H (75-99) mg/dL Microbiology - Last 24 Hours (Table) 12/25/20 13:50 Anaerobic Culture - Final Pleural Fluid 12/25/20 13:50 Gram Stain - Final Pleural Fluid Body Fluid Culture - Final Assessment and Plan Assessment: Acute community-acquired pneumonia, right lower lobe, complicated by parapneumonic effusion/lung abscess/empyema. Status post pigtail catheter insertion, antibiotics, and instillation of TPA. Acute hypoxemic respiratory failure. Pleurisy, secondary to above. History of underlying COPD, inactive. Hypertensive cardiomyopathy. Hyperlipidemia. Normal coronary arteriography. Plan: Plan dated 12/29/2020. The patient had over 300 mL of drainage from the right pigtail catheter. It may not come out today for that reason. The patient remains on Unasyn and vancomycin as antibiotics as per infectious diseases. The patient has been getting TPA/Dornase, inserted through the pigtail catheter, to enhance clearance of infection and drainage. The patient should continue on hourly use of the incentive spirometer, as well as deep breathing, coughing, and clearing of secretions. Additional recommendations and suggestions are forthcoming. Also, we will continue to follow this patient and make recommendations where appropriate. Thus far, all microbiology has been negative. Plan dated 12/30/2020. Chest x-rays and CAT scans from today are reviewed. It appears that the process in the right lung, is almost completely resolved. There is minimal output from the pigtail catheter over the last 24 hours and in our opinion, the catheter could be removed. The left lung also show some evidence of either atelectasis infiltrate or effusion. It's relatively small process. The patient's clinic ally well, and afebrile. The patient is on Unasyn. All microbiologic studies thus far have been negative. Time with Patient: Less than 30
[2020-12-30 16:18] LABS: Glucose,Whole Blood 133 mg/dL (75-99)
[2020-12-30 20:06] LABS: Glucose,Whole Blood 94 mg/dL (75-99)
[2020-12-30] MEDS: HYDROmorphone 1 MG/ML 1 ML SYRINGE IVP PRN (20:25)
[2020-12-31] MEDS: HYDROmorphone 1 MG/ML 1 ML SYRINGE IVP PRN ×2 (01:30→09:24)
[2020-12-31 06:03] LABS: Glucose,Whole Blood 89 mg/dL (75-99)
[2020-12-31] MEDS: INSULIN ASPART (NovoLOG) 100 UNIT/ML VIAL SQ SCH ×3 (06:05→18:01)
[2020-12-31] MEDS: carvediloL 12.5 MG TAB PO SCH ×2 (06:21→18:10)
[2020-12-31] MEDS: AMPICILLIN-SULBACTAM 3 GM in SODIUM CHLORIDE 0.9% 100 ML IVPB SCH ×2 (06:21→11:48)
--- NOTE | 2020-12-31 08:24 | XR ---
EXAMINATION TYPE: XR chest 2V DATE OF EXAM: 12/31/2020 COMPARISON: Chest x-ray 12/30/2020 HISTORY: Right lung abscess, status post chest tube removal TECHNIQUE: Frontal and lateral views of the chest are obtained. FINDINGS: Right-sided pigtail catheter has been removed. Minimal patchy basilar density is present l eft greater than right. Pleural thickening of the right upper lung. Cardiac mediastinal silhouette is stable. No evident pneumothorax. IMPRESSION: No evident complication status post chest tube removal. Left pleural effusion and associ ated atelectasis, minimal residual basilar inflammatory changes are present on the right, apical pleu ral thickening.
[2020-12-31] MEDS: IPRATROPIUM-ALBUTEROL 3 ML NEB INHALATION SCH ×3 (08:33→17:32)
[2020-12-31] MEDS: SYMBICORT 160-4.5 MCG INHALER INHALATION SCH (08:33)
--- NOTE | 2020-12-31 08:34 | P.PN ---
Subjective Progress Note Date: 12/31/20 Principal diagnosis: Right lower lobe pneumonia, present on admission, right lung abscess as well as right pleural effusion, chest pain without obstructive coronary artery disease on heart catheterization, leukocytosis, shortness of breath. Previous medical history of cardiomyopathy, COPD, previous tobacco dependence with recent smoking cessation in September 2020, hypertension, hyperlipidemia, depression, daily EtOH use, recent RSV infection POD #6 placement of right sided pigtail catheter by interventional radiology The patient was seen and examined this morning sitting up in bed in no acute distress. Does complain to some soreness in his previous pigtail catheter site, otherwise no new concerns. No shortness of breath. Currently on room air and able to achieve 2000 mL on his incentive spirometer. Remains on IV antibiotics per infectious disease. Pleural fluid culture demonstrates no growth, pathology still pending. Patient has been ambulatory without difficulty. No new concerns. Objective - Vital Signs Vital signs: Vital Signs Temp 97.2 F L 12/31/20 06:00 Pulse 74 12/31/20 06:00 Resp 18 12/31/20 06:00 BP 128/69 12/31/20 06:00 Pulse Ox 98 12/31/20 06:00 Intake & Output 12/30/20 12/31/20 12/31/20 18:59 06:59 18:59 Intake Total 700 100 Output Total 400 1000 Balance 300 -900 Intake: Intake, IV Titration 100 Amount Ampicillin-Sulbactam 3 gm 100 In Sodium Chloride 0.9% 100 ml @ 200 mls/hr IVPB Q6HR ON LICENSE OF [facility] Rx#:[id number] Oral 700 Output: Chest Tube Drainage 0 Chest Tube Right 0 Urine 400 1000 Other: Voiding Method Toilet Urinal # Voids 2 2 - Exam CONSTITUTIONAL: Awake and alert, appears comfortable RESPIRATORY: Lungs sounds diminished bilaterally. Respirations even, non- labored. Currently on room air with oxygen saturation 98%. Able to achieve 1825-8983 milliliters on his incentive spirometry CARDIOVASCULAR: S1, S2 present. Regular rate and rhythm, sinus rhythm on telemetry. Palpable peripheral pulses bilaterally. No edema present GASTROINTESTINAL: Abdomen soft, nontender, nondistended. Active bowel sounds present 4 quadrants. Tolerating diet GENITOURINARY: Continues to void INTEGUMENTARY: Skin is warm and dry with evidence of good perfusion. NEUROLOGIC: Cranial nerves II through XII intact, normal coordination, no obvious motor or sensory deficits, speech is normal MUSKULOSKELETAL: Able to move all extremities, strength equal bilaterally, normal posture PSYCHIATRIC: Alert and oriented to person place and time, appropriate affect, intact judgment and insight - Allied health notes Allied health notes reviewed: nursing - Labs CBC & Chem 7: 12/30/20 07:19 12/30/20 07:19 Labs: Abnormal Lab Results - Last 24 Hours (Table) 12/30/20 12/30/20 Range/Units 11:30 16:16 POC Glucose (mg/dL) 130 H 133 H (75-99) mg/dL - Imaging and Cardiology Chest x-ray: image reviewed CT scan - chest: report reviewed, image reviewed Assessment and Plan Assessment: 1. Right lower lobe pneumonia, present on admission, right lung abscess as well as right pleural effusion, S/P right sided pigtail insertion by IR, fluid cultures negative, pathology pending 2. Chest pain, no obstructive coronary artery disease on heart catheterization 3. Leukocytosis 4. Shortness of breath 5. History of cardiomyopathy 6. COPD 7. Previous tobacco dependence with recent smoking cessation in September 2020 8. Hypertension 9. Hyperlipidemia 10. Depression 11. Daily EtOH use 12. Recent RSV infection, lab test for RSV negative 12/15/20, also Covid/Influenza A & B negative Plan: 1. Continue antibiotics per ID recommendations 2. Encourage incentive spirometry use. Bronchodilators per pulmonology 3. Increase activity as tolerated 4. Pain control with current medication regimen 5. Medical management of other comorbidities per primary care 6. Patient may be discharged from cardiothoracic surgery standpoint when okay with other specialties. He may follow up with his police booking officer when he returns home 7. Will see again on an as-needed basis. Please call us with any further questions Time with Patient: Greater than 30
[2020-12-31] MEDS: HEPARIN SODIUM,PORCINE/PF 5,000 UNIT/0.5 ML SYRINGE SQ SCH (09:24)
[2020-12-31] MEDS: hydrALAZINE HCL 50 MG TAB PO SCH (09:24)
[2020-12-31] MEDS: VALSARTAN 80 MG TAB PO SCH (09:24)
[2020-12-31] MEDS: ATORVASTATIN 20 MG TAB PO SCH (09:24)
[2020-12-31] MEDS: buPROPion SR 150 MG TABLET.ER PO SCH (09:24)
[2020-12-31] MEDS: ASPIRIN 81 MG PO SCH (09:24)
[2020-12-31] MEDS: amLODIPine 5 MG TAB PO SCH (09:24)
[2020-12-31] MEDS: FAMOTIDINE 20 MG TAB PO SCH (09:24)
[2020-12-31 11:41] LABS: Glucose,Whole Blood 118 mg/dL (75-99)
--- NOTE | 2020-12-31 12:36 | P.PN ---
Subjective Progress Note Date: 12/31/20 Principal diagnosis: Right lung abscess, pneumonia 55-year-old male patient is presenting today with extensive right-sided chest wall pain radiating to his back which has some pleuritic in nature. The patient's had a voltage criteria of LVH on his EKG. He was taken to catheter ization and the cardiac catheterization do not to be within normal limits. A CT angiogram of the chest and the thoracic aorta was done and the CT angiogram showed the possibility of a right lower lobe lung abscess measuring 6.3 cm in size in addition to a right-sided pleural effusion which was small. The ascending aorta was measuring 4.1 cm in size. The patient has cardiomegaly. Pulmonary consultation was requested accordingly. Currently is on oxygen on 2 L. Is quite uncomfortable and is having pain along his lites side of the chest and he is unable to take a deep breath. White cell count of 14.7. D-dimer is at 2.34. Creatinine is at 1.3. Troponins are negative. ProBNP level is at 475. Noted the patient was in the emergency department on 12/15/2020. At that time he came in with five-day history of shortness of breath and chills and body aches. He was seen by the emergency department staff and a chest x-ray was given at that time on 12/15/2020 of the chest x-ray showed no significant acute abnormality. There was a suspicious right basilar infiltrate. At that point, the patient was given Zithromax and the patient was given a 5 day course of prednisone 20 mg and he was discharged home. Over the past week, the patient continued to be symptomatic and short of breath and he was not bringing up much sputum. No hemoptysis. His condition got worse and for that reason he presented to the hospital. Note that around 2 weeks ago, he was hospitalized in [place] for an RSV infection of the lung and COPD exacerbation. He is a chronic smoker and he has [id number] smoking history and he quit smoking in September 2020. He is known to have COPD. Other comorbid conditions include hypertension, hyperlipidemia, hypertensive cardiomyopathy and previous history of depression. No history of any substance abuse. Reevaluated today on 12/22/2020, patient remains on the cardiac floor, continues to have pain especially upon taking a deep breath, pain is mostly on the right s reese/right base. Patient was seen yesterday by Dr. Johnston, and the workup seems to be mostly consistent with right lung abscess and right lower lobe pneumonia. Patient remains on antibiotics. Including vancomycin and Zosyn. Will recommend infectious disease consultation on this patient.. He is to have leukocytosis with WBC count of 24.2 hemoglobin 11.9. Electrolytes are normal renal profile is normal. The patient is seen today 12/23/2020 in follow-up on the selective care unit. He is currently resting fairly comfortably in bed. Still having some right- sided chest discomfort. Pain on inhalation. Blood culture pending. Sputum culture pending. Sodium 133. Potassium 4.7. Creatinine 0.85. Vancomycin trough 9.9. He remains on vancomycin and Zosyn. Continued on Symbicort and Du oNeb inhalations. 0.9 normal saline at 75 ML's per hour. The patient is seen today 12/24/2020 in follow-up on the selective care unit. He is awake and alert in no acute distress. Resting in bed. Maintaining O2 saturations in the mid 90s on 2 L/m per nasal cannula. He's been afebrile. Blood and sputum cultures are pending. Today's chest x-ray showed significant increase in the fluid of the right lung. Ultrasound of the chest reveals an 8.8 cm pocket however the fluid is non-simple with internal echoes. Pus or internal infection is suspected. Small left-sided pleural effusion. He remains on vancomycin and Unasyn. Remains on bronchodilators. Reevaluated today on 12/25/2020, patient is scheduled to undergo pigtail catheter placement for suspected empyema, secondary to right lower lobe pneumonia and lung. Discussed his situation with Dr. Frausto earlier today, and he is planning ultrasound-guided pigtail catheter placement to drain the right pleural effusion which is suspected to be empyema related unless for otherwise. I also discussed the patient's condition with thoracic surgery to consider alteplase injections after pigtail catheter placement. And the fluid seems to be loculated. The patient is seen today 12/26/2020 in follow-up on the selective care unit. He did undergo a right sided pigtail catheter placement yesterday by interventional radiology. Presently 700 mL of purulent drainage returned. He is currently resting fairly comfortably in bed. Awake and alert. Maintaining O2 saturations in the 90s on 2 L/m per nasal cannula. He remains on vancomycin and Unasyn. Pleural fluid cultures pending. White count improved to 26.0. Hemoglobin 10.1. Sodium 138. Potassium 3.6. Bicarb 24. Creatinine 0.77. Glucose 107. Today's chest x-ray shows significantly improved air space opacity throughout the right lung. There is small bilateral effusions right greater than left with adjacent atelectasis. Patient is seen today in follow-up selective care unit. He is resting quite comfortably in bed. Awake and alert in no acute distress. Maintaining O2 saturations in the 90s on 2 L/m per nasal cannula. Chest x-ray shows no significant changes. Pigtail catheter in place. Pseudotumor in the the right minor fissure. 0.9 normal saline at 75 ML's per hour. He remains on antibiotics in the form of vancomycin and Unasyn. Cultures are pending. White count 16.9. Hemoglobin 9.6. Sodium 139. Potassium 3.3. Bicarb 27. Creatinine 0.86. Vancomycin trough 17.1. Remains on bronchodilators, Medrol Dosepak. The patient is seen today 12/31/2020 in follow-up on the selective care unit. He is currently resting comfortably in bed. Awake and alert in no acute distress. Maintaining O2 saturations in the 90s on room air. His pigtail catheter was removed yesterday. Follow-up chest x-ray does not show any significant re accumulation of fluid. Cytology is still pending. Glucose 118. He remains on Unasyn. Received vancomycin yesterday. Continue on Symbicort, DuoNeb inhalations. Objective - Vital Signs Vital signs: Vital Signs Temp 97.2 F L 12/31/20 06:00 Pulse 74 12/31/20 06:00 Resp 18 12/31/20 06:00 BP 128/69 12/31/20 06:00 Pulse Ox 98 12/31/20 06:00 Intake & Output 12/30/20 12/31/20 12/31/20 18:59 06:59 18:59 Intake Total 700 100 400 Output Total 400 1000 Balance 300 -900 400 Intake: Intake, IV Titration 100 Amount Ampicillin-Sulbactam 3 gm 100 In Sodium Chloride 0.9% 100 ml @ 200 mls/hr IVPB Q6HR [facility] Rx#:[id number] Oral 700 400 Output: Chest Tube Drainage 0 Chest Tube Right 0 Urine 400 1000 Other: Voiding Method Toilet Urinal # Voids 2 2 - Exam GENERAL EXAM: Alert, pleasant 55-year-old gentleman, on room air, comfortable in no apparent distress. HEAD: Normocephalic. EYES: Normal reaction of pupils, equal size. NOSE: Clear with pink turbinates. THROAT: No erythema or exudates. NECK: No masses, no JVD. CHEST: No chest wall deformity. LUNGS: Equal air entry with crackles in the bases. CVS: S1 and S2 normal with no audible murmur, regular rhythm. ABDOMEN: No hepatosplenomegaly, normal bowel sounds, no guarding or rigidity. SPINE: No scoliosis or deformity SKIN: No rashes CENTRAL NERVOUS SYSTEM: No focal deficits, tone is normal in all 4 extremities. EXTREMITIES: There is no peripheral edema. No clubbing, no cyanosis. Peripheral pulses are intact. - Labs CBC & Chem 7: 12/30/20 07:19 12/30/20 07:19 Labs: Abnormal Lab Results - Last 24 Hours (Table) 12/30/20 12/31/20 Range/Units 16:16 11:40 POC Glucose (mg/dL) 133 H 118 H (75-99) mg/dL Assessment and Plan Assessment: 1 Right lower lobe pneumonia pneumonia complicated by development of a right lung abscess and right-sided pleural effusion. He's been initiated on vancomycin and Unasyn. Status post pigtail catheter placement on 12/25/2020, removed 12/30/2020. Significant improvement in aeration on the right lung. 2 Acute hypoxic respiratory failure secondary to above, recovered and on room air 3 Pleurisy and chest pain and shortness of breath secondary to above, improved 4 Leukocytosis, improving 5 Hypertensive cardiomyopathy 6 Normal coronary angiogram 7 Hyperlipidemia 8 COPD Plan: The patient was seen and evaluated by Dr. Brush Chest x-ray reviewed Pigtail catheter removed yesterday Stable and on room air Cleared for discharge from the pulmonary standpoint Augmentin for 2-3 weeks per ID services Follow-up in the office in 1-2 weeks' I, the cosigning physician, performed a history & physical examination of the patient. Lungs sounds with crackles in the bases. Maintaining good O2 saturations in the 90s on room air. I discussed the assessment and plan of care with my nurse practitioner, Katty Teixeira. I attest to the above note as dictated b y her.
--- NOTE | 2020-12-31 14:42 | PN ---
PROGRESS NOTE DATE OF SERVICE: 12/31/2020. REASON FOR FOLLOWUP: Pneumonia. INTERVAL HISTORY: The patient is afebrile. The patient is breathing comfortably. Currently not on any pressors. Denies any chest pain. No shortness of breath. Minimal cough though. No nausea, no vomiting. No abdominal pain or diarrhea. PHYSICAL EXAMINATION: Blood pressure 128/59, pulse 74. Temperature is 97.2. He is 98% on room air. General description is a middle-aged male lying in bed in no distress. Respiratory system: Unlabored breathing. Clear to auscultation anteriorly. Heart S1, S2. Regular rate and rhythm. Abdomen soft. No tenderness. LABS: No new labs have been obtained today. Fine needle aspiration is currently pending. Cultures so far negative. DIAGNOSTIC IMPRESSION AND PLAN: Patient with right-sided pneumonia, abscess, status post chest tube, which has been subsequently discontinued. Culture has been negative. Plan is to finish therapy with oral Augmentin x10 days to 2 weeks and close outpatient followup. MMODL / IJN: [id number] /
[2020-12-31 16:52] VITALS: BP 116/57; RESP 16
[2020-12-31 16:56] LABS: Glucose,Whole Blood 101 mg/dL (75-99)
[2020-12-31 17:02] VITALS: PULSE 88; TEMP 97.9
--- NOTE | 2021-01-18 23:07 | P.PN ---
Subjective Progress Note Date: 12/29/20 Principal diagnosis: Right lung abscess 6.3 cm in diameter. Status post right pigtail placement and ateplace irrigation Right side pneumonia, with the right more than left pleural effusion 55-year-old male who presents emergency pertinent past medical history significant for cardiomyopathy hypertension high cholesterol and recently quit smoking. Patient comes in stating 5 AM this morning he was having severe left- sided chest pain. Patient denies any radiation. Patient states he is somewhat short of breath per patient denies any diaphoretic episodes. Patient states the pain never goes away but it does get worse and get better. Patient denies any nausea. Patient denies abdominal pain patient denies any vomiting. Patient denies any recent fevers or chills per patient states he does have an upper respiratory infection recently and he was seen in emergency department. Patient states she was negative for COVID. CT of his aorta to rule out dissection. CT was done and showed no dissection. CT did show possibility of a pulmonary abscess in the right lower lung. EKG shows normal sinus rhythm at 73 bpm MD interval 160 QRS is under QT interval 370 QTC is 416. Patient's EKG shows some ST segment elevation in the anterior leads V1 and V2 and V3. Patient has T-wave abnormalities in the precordial leads V4 V5 and V6 as well as inferior leads which were also seen on previous EKG. A STEMI overhead was called. Patient received 1 mg of Ativan and nitroglycerin and aspirin immediately upon arrival in the emergency department. 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 Risks patient was thought to have based on abnormal EKG however cardiac cath showing non-obstructive coronary artery disease. Patient found mostly his symptoms, from right pneumonia and right lung abscess. Is still in respiratory distress and tachypneic because of his infection. He is breathing fast 30s. Rest of vitals are stable. WBC is elevated at 24. Liver enzymes mildly elevated. Which are rest of labs are unremarkable. Poorcalcitonin elevated at 1.27. Thoracic aortic CT is negative for dissection he has ascending aortic aneurysm of 4.1 cm right lung abscess about 6.3 cm. He is currently kept on normal saline at 75, Zosyn and IV vancomycin 12/23/20 Patient is still complaining of from dyspnea and pain on the right side of the chest. His states that Dilaudid 0.5 mg is not enough and clots increased to 1 mg He still somewhat tachypneic but slightly better compared to yesterday. Patient is moderate respiratory distress. Other vitals are stable. WBC is pending today. Rest of labs are unremarkable. Creatinine is normal at 0.8. The patient remains on Zosyn, IV vancomycin and normal saline at 75 mL/h, also Medrol Dosepak added today. 12/24/2020 Patient chest pain is feeling better after increasing his Dilaudid 1 mg. However he still dyspneic with a breathing rate around 22 but with good oxygen saturation. With a chest x-ray and ultrasound showing worsening right more than left pleural effusion with 8.8 cm pocket on the right side. His creatinine is normal. Liver enzymes are better. Blood pressure is elevated 187/104. Hydralazine is added. Also he is on Medrol Dosepak. His antibiotics were adjusted to Unasyn and IV vancomycin. Also he is on normal saline at 75 mL/h. 12/25/2020 Patient breathing better today and, actually his breathing rate is 15-17 per day after it wasn't 20s and 30s the last couple days. However he still complaining of from dyspnea and difficulty breathing. Surgery team are planning for right sided pigtail catheter by IR today with fluid to be sent for culture and cytology. and they will use Alteplase with pigtail daily for drainage of pleural effusion. Labs are unremarkable He remains on IV vancomycin and Unasyn and normal saline at 75 mL/h, also I and steroids and Norvasc is added for better control of blood pressure 12/26/2020 Patient today is doing better with is here breathing and less tachypnea and pain. Replacement of the right pigtail tube and undergoing alteplase irrigation per cardiothoracic surgery team Samples sent for culture and cytology and suspended Hemodynamically and labs are improving and stable. His WBCs 26K. blood pressure is better Repeat chest x-ray showing small bilateral pleural effusion, right more than lef t with adjacent atelectasis versus consolidation with right basal pleural catheter is in place, improving and radiation. He remains on Unasyn, IV vancomycin, normal saline 75 mg/h and Medrol Dosepak 12/27/2020 Patient is improving gradually and slowly. Today he is sitting in chair stating that his dyspnea is the same however his breathing normally and quietly. No significant chest pain. Vitals are stable. WBC trending down to 16 K, rest of labs are unremarkable. Chest x-ray showing no change. Pigtail right-sided chest tube is still in place. Culture from the secretion are still pending History on normal saline 75 mL/h, Unasyn, IV vancomycin and Medrol Dosepak 12/28/2020 Patients with no dyspnea at rest, no chest pain. He still feels little malaise. Hemodynamically stable. WBC slightly down the 15th K.. Creatinine and electrolytes are normal. Cultures are pending. Cytology results from the abscess aspirate also still pending. He is on IV vancomycin and Unasyn 12/29/2020 Patient is currently in the select care unit. Lying in the bed. Awake alert and oriented. Requiring oxygen via nasal cannula. Right chest pigtail catheter is in place. CT surgery is following. Denied any complaints of chest pain or worsening shortness of breath. Patient is being continued on broad-spectrum antibiotics pending culture reports. Laboratory data showed sodium 136 potassium 5.6 with slight hemolysis. Repeat potassium was ordered. BUN 14 and creatinine 0.85 Patient is being continued on Unasyn and vancomycin as per ID recommendations. Patient has been afebrile. No nausea vomiting or abdominal pain or diarrhea. No dizziness or lightheadedness. Current medications reviewed. Objective - Vital Signs Vital signs: Vital Signs Temp 98 F 12/29/20 08:40 Pulse 74 12/29/20 08:41 Resp 18 12/29/20 08:40 BP 152/79 12/29/20 08:40 Pulse Ox 98 12/29/20 08:47 Intake & Output 12/28/20 12/29/20 12/29/20 18:59 06:59 18:59 Intake Total 1050 10 240 Output Total 1380 2590 Balance -330 -2580 240 Intake: IV 10 Invasive Line 5 10 Intake, IV Titration 1050 Amount Ampicillin-Sulbactam 3 gm 200 In Sodium Chloride 0.9% 100 ml @ 200 mls/hr IVPB Q6HR [facility] Rx#:[id number] Sodium Chloride 0.9% 1, 600 000 ml @ 75 mls/hr IV . [id number] [facility] Rx#:[id number] Vancomycin 1,500 mg In 250 Sodium Chloride 0.9% 250 ml @ 125 mls/hr IVPB Q8HR [facility] Rx#:[id number] Oral 240 Output: Chest Tube Drainage 230 90 Chest Tube Right 230 90 Urine 1150 2500 Other: Voiding Method Toilet Toilet Urinal Urinal # Voids 1 # Bowel Movements 1 1 - Exam - Exam GENERAL: The patient is alert and oriented x3, not in any acute distress. Well developed, well nourished. HEENT: Pupils are round and equally reacting to light. EOMI. No scleral icterus. No conjunctival pallor. Normocephalic, atraumatic. No pharyngeal erythema. No thyromegaly. CARDIOVASCULAR: S1 and S2 present. No murmurs, rubs, or gallops. -PULMONARY: Chest is clear to auscultation, no wheezing, rt basilar crackles. Tachypneic ABDOMEN: Soft, nontender, nondistended, normoactive bowel sounds. No palpable organomegaly. MUSCULOSKELETAL: No joint swelling or deformity. EXTREMITIES: No cyanosis, clubbing, or pedal edema. NEUROLOGICAL: Gross neurological examination did not reveal any focal deficits. SKIN: No rashes. no petechiae. - Labs CBC & Chem 7: 12/30/20 07:19 12/30/20 07:19 Labs: Abnormal Lab Results - Last 24 Hours (Table) 12/28/20 12/28/20 12/28/20 Range/Units 11:34 16:23 19:33 Sodium (137-145) mmol/L Potassium (3.5-5.1) mmol/L POC Glucose (mg/dL) 101 H 147 H 118 H (75-99) mg/dL 12/29/20 Range/Units 07:45 Sodium 136 L (137-145) mmol/L Potassium 5.6 H (3.5-5.1) mmol/L POC Glucose (mg/dL) (75-99) mg/dL Microbiology - Last 24 Hours (Table) 12/25/20 13:50 Gram Stain - Preliminary Pleural Fluid Body Fluid Culture - Preliminary Assessment and Plan Assessment: Right lung abscess 6.3 cm in diameter. Status post right pigtail placement and ateplace irrigation Right side pneumonia, with the right more than left pleural effusion Ascending aortic aneurysm 4.1 cm Sepsis secondary to above Plan: This is a pleasant 55 years old male presents with right lung abscess and pneumonia Continue with IV vancomycin and Unasyn Follow-up blood cultures. Follow-up sputum culture Continue gentle hydration Continue with pigtail tube ini the right lung abscess and alteplase instillation s Pulmonary and infectious disease consult Labs and medication were reviewed. Monitor lytes and vitals. DVT and GI prophylaxis. Further recommendationsas per clinical course of the patient DVT prophylaxis: Subcutaneous heparin GI Prophylaxis: Pepcid Prognosis is guarded Time with Patient: Greater than 30
--- NOTE | 2021-01-18 23:10 | P.PN ---
Subjective Progress Note Date: 12/30/20 Principal diagnosis: Right lung abscess 6.3 cm in diameter. Status post right pigtail placement and ateplace irrigation Right side pneumonia, with the right more than left pleural effusion 55-year-old male who presents emergency pertinent past medical history significant for cardiomyopathy hypertension high cholesterol and recently quit smoking. Patient comes in stating 5 AM this morning he was having severe left- sided chest pain. Patient denies any radiation. Patient states he is somewhat short of breath per patient denies any diaphoretic episodes. Patient states the pain never goes away but it does get worse and get better. Patient denies any nausea. Patient denies abdominal pain patient denies any vomiting. Patient denies any recent fevers or chills per patient states he does have an upper respiratory infection recently and he was seen in emergency department. Patient states she was negative for COVID. CT of his aorta to rule out dissection. CT was done and showed no dissection. CT did show possibility of a pulmonary abscess in the right lower lung. EKG shows normal sinus rhythm at 73 bpm WA interval 160 QRS is under QT interval 370 QTC is 416. Patient's EKG shows some ST segment elevation in the anterior leads V1 and V2 and V3. Patient has T-wave abnormalities in the precordial leads V4 V5 and V6 as well as inferior leads which were also seen on previous EKG. A STEMI overhead was called. Patient received 1 mg of Ativan and nitroglycerin and aspirin immediately upon arrival in the emergency department. Patient was evaluated by cardiology in the ED and was taken to chemical laboratory assistant Subjective: 12/22/2020 This is a pleasant 55 -[place] male with multiple medical problems presents with respiratory distress. Risks patient was thought to have based on abnormal EKG however cardiac cath showing non-obstructive coronary artery disease. Patient found mostly his symptoms, from right pneumonia and right lung abscess. Is still in respiratory distress and tachypneic because of his infection. He is breathing fast 30s. Rest of vitals are stable. WBC is elevated at 24. Liver enzymes mildly elevated. Which are rest of labs are unremarkable. Poorcalcitonin elevated at 1.27. Thoracic aortic CT is negative for dissection he has ascending aortic aneurysm of 4.1 cm right lung abscess about 6.3 cm. He is currently kept on normal saline at 75, Zosyn and IV vancomycin 12/23/20 Patient is still complaining of from dyspnea and pain on the right side of the chest. His states that Dilaudid 0.5 mg is not enough and clots increased to 1 mg He still somewhat tachypneic but slightly better compared to yesterday. Patient is moderate respiratory distress. Other vitals are stable. WBC is pending today. Rest of labs are unremarkable. Creatinine is normal at 0.8. The patient remains on Zosyn, IV vancomycin and normal saline at 75 mL/h, also Medrol Dosepak added today. 12/24/2020 Patient chest pain is feeling better after increasing his Dilaudid 1 mg. However he still dyspneic with a breathing rate around 22 but with good oxygen saturation. With a chest x-ray and ultrasound showing worsening right more than left pleural effusion with 8.8 cm pocket on the right side. His creatinine is normal. Liver enzymes are better. Blood pressure is elevated 187/104. Hydralazine is added. Also he is on Medrol Dosepak. His antibiotics were adjusted to Unasyn and IV vancomycin. Also he is on normal saline at 75 mL/h. 12/25/2020 Patient breathing better today and, actually his breathing rate is 15-17 per day after it wasn't 20s and 30s the last couple days. However he still complaining of from dyspnea and difficulty breathing. Surgery team are planning for right sided pigtail catheter by IR today with fluid to be sent for culture and cytology. and they will use Alteplase with pigtail daily for drainage of pleural effusion. Labs are unremarkable He remains on IV vancomycin and Unasyn and normal saline at 75 mL/h, also I and steroids and Norvasc is added for better control of blood pressure 12/26/2020 Patient today is doing better with is here breathing and less tachypnea and pain. Replacement of the right pigtail tube and undergoing alteplase irrigation per cardiothoracic surgery team Samples sent for culture and cytology and suspended Hemodynamically and labs are improving and stable. His WBCs 26K. blood pressure is better Repeat chest x-ray showing small bilateral pleural effusion, right more than lef t with adjacent atelectasis versus consolidation with right basal pleural catheter is in place, improving and radiation. He remains on Unasyn, IV vancomycin, normal saline 75 mg/h and Medrol Dosepak 12/27/2020 Patient is improving gradually and slowly. Today he is sitting in chair stating that his dyspnea is the same however his breathing normally and quietly. No significant chest pain. Vitals are stable. WBC trending down to 16 K, rest of labs are unremarkable. Chest x-ray showing no change. Pigtail right-sided chest tube is still in place. Culture from the secretion are still pending History on normal saline 75 mL/h, Unasyn, IV vancomycin and Medrol Dosepak 12/28/2020 Patients with no dyspnea at rest, no chest pain. He still feels little malaise. Hemodynamically stable. WBC slightly down the 15th K.. Creatinine and electrolytes are normal. Cultures are pending. Cytology results from the abscess aspirate also still pending. He is on IV vancomycin and Unasyn 12/29/2020 Patient is currently in the select care unit. Lying in the bed. Awake alert and oriented. Requiring oxygen via nasal cannula. Right chest pigtail catheter is in place. CT surgery is following. Denied any complaints of chest pain or worsening shortness of breath. Patient is being continued on broad-spectrum antibiotics pending culture reports. Laboratory data showed sodium 136 potassium 5.6 with slight hemolysis. Repeat potassium was ordered. BUN 14 and creatinine 0.85 Patient is being continued on Unasyn and vancomycin as per ID recommendations. Patient has been afebrile. No nausea vomiting or abdominal pain or diarrhea. No dizziness or lightheadedness. 12/30/2020 Patient is currently resting in the bed. Minimal shortness of breath with walking. Pigtail is in place. Fluid culture report is still pending. Patient is on antibiotics above Unasyn and vancomycin. Laboratory data showed WBC count trending down to 13.3 hemoglobin 11.2 and platelets 502 BUN 12 and creatinine 0.95 potassium 4.1. Pulmonary and CT surgery is on board. CT chest was done today showed improving posterior medial right basilar thick-walled and fluid collection or pulmonary abscess. Improving right-sided pleural effusion with percutaneous drainage catheter. Small to tiny left pleural effusion slightly larger from prior with associated left basilar compressive atelectasis. Patient has been afebrile. No nausea vomiting or abdominal pain or diarrhea. No fever no chills. No worsening cough. No dizziness or lightheadedness. Follow-up chest x-ray tomorrow. Current medications reviewed. Objective - Vital Signs Vital signs: Vital Signs Temp 97.7 F 12/30/20 19:38 Pulse 71 12/30/20 19:38 Resp 16 12/30/20 20:00 BP 120/68 12/30/20 19:38 Pulse Ox 98 12/30/20 19:38 Intake & Output 12/30/20 12/30/20 12/31/20 06:59 18:59 06:59 Intake Total 700 Output Total 1800 0 300 Balance -1800 700 -300 Intake: Oral 700 Output: Chest Tube Drainage 0 0 Chest Tube Right 0 0 Urine 1800 300 Other: Voiding Method Toilet Toilet Urinal Urinal # Voids 1 2 1 - Exam - Exam GENERAL: The patient is alert and oriented x3, not in any acute distress. Well developed, well nourished. HEENT: Pupils are round and equally reacting to light. EOMI. No scleral icterus. No conjunctival pallor. Normocephalic, atraumatic. No pharyngeal erythema. No thyromegaly. CARDIOVASCULAR: S1 and S2 present. No murmurs, rubs, or gallops. -PULMONARY: Chest is clear to auscultation, no wheezing, rt basilar crackles. Tachypneic ABDOMEN: Soft, nontender, nondistended, normoactive bowel sounds. No palpable organomegaly. MUSCULOSKELETAL: No joint swelling or deformity. EXTREMITIES: No cyanosis, clubbing, or pedal edema. NEUROLOGICAL: Gross neurological examination did not reveal any focal deficits. SKIN: No rashes. no petechiae. - Labs CBC & Chem 7: 12/30/20 07:19 12/30/20 07:19 Labs: Abnormal Lab Results - Last 24 Hours (Table) 12/30/20 12/30/20 12/30/20 Range/Units 07:19 11:30 16:16 WBC 13.3 H (3.8-10.6) k/uL RBC 3.56 L (4.30-5.90) m/uL Hgb 11.2 L (13.0-17.5) gm/dL Hct 35.8 L (39.0-53.0) % MCV 100.5 H (80.0-100.0) fL Plt Count 502 H (150-450) k/uL Neutrophils # 10.1 H (1.3-7.7) k/uL POC Glucose (mg/dL) 130 H 133 H (75-99) mg/dL Microbiology - Last 24 Hours (Table) 12/25/20 13:50 Anaerobic Culture - Final Pleural Fluid Assessment and Plan Assessment: Acute community-acquired pneumonia, right lower lobe, complicated by parapneumonic effusion/lung abscess/empyema. Status post pigtail catheter insertion, antibiotics, and instillation of TPA. Right lung abscess 6.3 cm in diameter. Status post right pigtail placement and ateplace irrigation Right side pneumonia, with the right more than left pleural effusion Ascending aortic aneurysm 4.1 cm Sepsis secondary to above Plan: This is a pleasant 55 years old male presents with right lung abscess and pn eumonia Continue with IV vancomycin and Unasyn Follow-up blood cultures. Follow-up sputum culture Continue gentle hydration Continue with pigtail tube ini the right lung abscess and alteplase instill ations Pulmonary and infectious disease consult Labs and medication were reviewed. Monitor lytes and vitals. DVT and GI prophylaxis. Further recommendationsas per clinical course of the patient DVT prophylaxis: Subcutaneous heparin GI Prophylaxis: Pepcid Prognosis is guarded Time with Patient: Greater than 30
--- NOTE | 2021-01-18 23:14 | P.DS ---
Providers Date of admission: 12/21/20 09:27 Expected date of discharge: 12/31/20 Attending physician: Sully Smith Consults: 12/21/20 09:34 Consult Physician Stat Consulting Provider: Samia Brownlee Consult Reason/Comments: STEMI Do you want consulting provider notified?: Yes 12/21/20 09:35 Consult Physician Urgent Consulting Provider: Jason Johnston Consult Reason/Comments: Pulmonary abscess Do you want consulting provider notified?: Yes 12/22/20 16:55 Consult Physician Routine Consulting Provider: Day Phillips Consult Reason/Comments: lung abcess Do you want consulting provider notified?: Yes 12/24/20 13:08 Consult Physician Routine Consulting Provider: Evert Bain Consult Reason/Comments: Lung Abscess Do you want consulting provider notified?: Already Contacted Primary care physician: Physician Nonstaff Hospital Course: Discharge diagnosis Acute community-acquired pneumonia, right lower lobe, complicated by parapneumonic effusion/lung abscess/empyema. Status post pigtail catheter insertion, antibiotics, and instillation of TPA. Right lung abscess 6.3 cm in diameter. Status post right pigtail placement and ateplace irrigation Right side pneumonia, with the right more than left pleural effusion Ascending aortic aneurysm 4.1 cm Sepsis secondary to above Hospital course 55-year-old male who presents emergency pertinent past medical history significant for cardiomyopathy hypertension high cholesterol and recently quit smoking. Patient comes in stating 5 AM this morning he was having severe left- sided chest pain. Patient denies any radiation. Patient states he is somewhat short of breath per patient denies any diaphoretic episodes. Patient states the pain never goes away but it does get worse and get better. Patient denies any nausea. Patient denies abdominal pain patient denies any vomiting. Patient denies any recent fevers or chills per patient states he does have an upper respiratory infection recently and he was seen in emergency department. Patient states she was negative for COVID. CT of his aorta to rule out dissection. CT was done and showed no dissection. CT did show possibility of a pulmonary abscess in the right lower lung. EKG shows normal sinus rhythm at 73 bpm MO interval 160 QRS is under QT interval 370 QTC is 416. Patient's EKG shows some ST segment elevation in the anterior leads V1 and V2 and V3. Patient has T-wave abnormalities in the precordial leads V4 V5 and V6 as well as inferior leads which were also seen on previous EKG. A STEMI overhead was called. Patient received 1 mg of Ativan and nitroglycerin and aspirin immediately upon arrival in the emergency department. 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 Risks patient was thought to have based on abnormal EKG however cardiac cath showing non-obstructive coronary artery disease. Patient found mostly his symptoms, from right pneumonia and right lung abscess. Is still in respiratory distress and tachypneic because of his infection. He is breathing fast 30s. Rest of vitals are stable. WBC is elevated at 24. Liver enzymes mildly elevated. Which are rest of labs are unremarkable. Poorcalcitonin elevated at 1.27. Thoracic aortic CT is negative for dissection he has ascending aortic aneurysm of 4.1 cm right lung abscess about 6.3 cm. He is currently kept on normal saline at 75, Zosyn and IV vancomycin 12/23/20 Patient is still complaining of from dyspnea and pain on the right side of the chest. His states that Dilaudid 0.5 mg is not enough and clots increased to 1 mg He still somewhat tachypneic but slightly better compared to yesterday. Patient is moderate respiratory distress. Other vitals are stable. WBC is pending today. Rest of labs are unremarkable. Creatinine is normal at 0.8. The patient remains on Zosyn, IV vancomycin and normal saline at 75 mL/h, also Medrol Dosepak added today. 12/24/2020 Patient chest pain is feeling better after increasing his Dilaudid 1 mg. However he still dyspneic with a breathing rate around 22 but with good oxygen saturation. With a chest x-ray and ultrasound showing worsening right more than left pleural effusion with 8.8 cm pocket on the right side. His creatinine is normal. Liver enzymes are better. Blood pressure is elevated 187/104. Hydralazine is added. Also he is on Medrol Dosepak. His antibiotics were adjusted to Unasyn and IV vancomycin. Also he is on normal saline at 75 mL/h. 12/25/2020 Patient breathing better today and, actually his breathing rate is 15-17 per day after it wasn't 20s and 30s the last couple days. However he still complaining of from dyspnea and difficulty breathing. Surgery team are planning for right sided pigtail catheter by IR today with fluid to be sent for culture and cytology. and they will use Alteplase with pigtail daily for drainage of pleural effusion. Labs are unremarkable He remains on IV vancomycin and Unasyn and normal saline at 75 mL/h, also I and steroids and Norvasc is added for better control of blood pressure 12/26/2020 Patient today is doing better with is here breathing and less tachypnea and pain. Replacement of the right pigtail tube and undergoing alteplase irrigation per cardiothoracic surgery team Samples sent for culture and cytology and suspended Hemodynamically and labs are improving and stable. His WBCs 26K. blood pressure is better Repeat chest x-ray showing small bilateral pleural effusion, right more than left with adjacent atelectasis versus consolidation with right basal pleural catheter is in place, improving and radiation. He remains on Unasyn, IV vancomycin, normal saline 75 mg/h and Medrol Dosepak 12/27/2020 Patient is improving gradually and slowly. Today he is sitting in chair stating that his dyspnea is the same however his breathing normally and quietly. No significant chest pain. Vitals are stable. WBC trending down to 16 K, rest of labs are unremarkable. Chest x-ray showing no change. Pigtail right-sided chest tube is still in place. Culture from the secretion are still pending History on normal saline 75 mL/h, Unasyn, IV vancomycin and Medrol Dosepak 12/28/2020 Patients with no dyspnea at rest, no chest pain. He still feels little malaise. Hemodynamically stable. WBC slightly down the 15th K.. Creatinine and electrolytes are normal. Cultures are pending. Cytology results from the abscess aspirate also still pending. He is on IV vancomycin and Unasyn 12/29/2020 Patient is currently in the select care unit. Lying in the bed. Awake alert and oriented. Requiring oxygen via nasal cannula. Right chest pigtail catheter is in place. CT surgery is following. Denied any complaints of chest pain or worsening shortness of breath. Patient is being continued on broad-spectrum antibiotics pending culture reports. Laboratory data showed sodium 136 potassium 5.6 with slight hemolysis. Repeat potassium was ordered. BUN 14 and creatinine 0.85 Patient is being continued on Unasyn and vancomycin as per ID recommendations. Patient has been afebrile. No nausea vomiting or abdominal pain or diarrhea. No dizziness or lightheadedness. 12/30/2020 Patient is currently resting in the bed. Minimal shortness of breath with walking. Pigtail is in place. Fluid culture report is still pending. Patient is on antibiotics above Unasyn and vancomycin. Laboratory data showed WBC count trending down to 13.3 hemoglobin 11.2 and platelets 502 BUN 12 and creatinine 0.95 potassium 4.1. Pulmonary and CT surgery is on board. CT chest was done today showed improving posterior medial right basilar thick-walled and fluid collection or pulmonary abscess. Improving right-sided pleural effusion with percutaneous drainage catheter. Small to tiny left pleural effusion slightly larger from prior with associated left basilar compressive atelectasis. Patient has been afebrile. No nausea vomiting or abdominal pain or diarrhea. No fever no chills. No worsening cough. No dizziness or lightheadedness. Follow-up chest x-ray tomorrow. 1320 Patient is currently in second care unit. Lying in the bed comfortably. Awake alert when x3. Pigtail catheter was taken out by CT surgery. Follow-up x-ray does not show any significant accumulation of fluid. Patient remains Unasyn and vancomycin. ID recommends to continue Augmentin for 10 days. Patient be continued on current blood pressure medications and discharge medication reconciliation was done and new scripts were sent to pharmacy. Patient has been afebrile. No headache or dizziness or lightheadedness. No fever no worsening chest pain or shortness breath. Patient is being discharged home today. Follow-up cytology and follow-up with pulmonary as an outpatient. - Exam GENERAL: The patient is alert and oriented x3, not in any acute distress. Well developed, well nourished. HEENT: Pupils are round and equally reacting to light. EOMI. No scleral icterus. No conjunctival pallor. Normocephalic, atraumatic. No pharyngeal erythema. No thyromegaly. CARDIOVASCULAR: S1 and S2 present. No murmurs, rubs, or gallops. -PULMONARY: Chest is clear to auscultation, no wheezing, rt basilar crackles. Tachypneic ABDOMEN: Soft, nontender, nondistended, normoactive bowel sounds. No palpable organomegaly. MUSCULOSKELETAL: No joint swelling or deformity. EXTREMITIES: No cyanosis, clubbing, or pedal edema. NEUROLOGICAL: Gross neurological examination did not reveal any focal deficits. SKIN: No rashes. no petechiae. Objective - Vital Signs Vital signs: Vital Signs Temp 97.2 F L 12/31/20 06:00 Pulse 74 12/31/20 06:00 Resp 18 12/31/20 06:00 BP 128/69 12/31/20 06:00 Pulse Ox 98 12/31/20 06:00 Intake & Output 12/30/20 12/31/20 12/31/20 18:59 06:59 18:59 Intake Total 700 100 400 Output Total 400 1000 Balance 300 -900 400 Intake: Intake, IV Titration 100 Amount Ampicillin-Sulbactam 3 gm 100 In Sodium Chloride 0.9% 100 ml @ 200 mls/hr IVPB Q6HR [facility] Rx#:[id number] Oral 700 400 Output: Chest Tube Drainage 0 Chest Tube Right 0 Urine 400 1000 Other: Voiding Method Toilet Urinal # Voids 2 2 Time taken greater than 35 minutes in patient care out of which more than 50% was spent on counseling and coordination of care. Patient Condition at Discharge: Fair Plan - Discharge Summary New Discharge Prescriptions: New amLODIPine [Norvasc] 5 mg PO DAILY #30 tab hydrALAZINE HCL [Apresoline] 50 mg PO BID #60 tab Aspirin 81 mg PO DAILY #30 tab Amoxicillin/Potassium Clav [Augmentin 875-125 Tablet] 1 tab PO Q12HR 10 Days #20 tab carvediloL [Coreg*] 12.5 mg PO BID-W/MEALS #60 tab Nitroglycerin Sl Tabs [Nitrostat] 0.4 mg SUBLINGUAL ONCE PRN #30 tab PRN Reason: Chest Pain Continue Valsartan [Diovan] 80 mg PO DAILY Ipratropium-Albuterol Nebulize [Duoneb 0.5 mg-3 mg/3 ml Soln] 1.5 ml INHALATION RT-QID Albuterol Inhaler [Ventolin Hfa Inhaler] 2 puff INHALATION RT-Q4H PRN PRN Reason: Shortness Of Breath Budesonide/Formoterol Fumarate [Symbicort 160-4.5 Mcg Inhaler] 2 puff INHALATION RT-BID buPROPion SR [Wellbutrin SR] 150 mg PO BID Atorvastatin [Lipitor] 80 mg PO DAILY Discontinued Ibuprofen [Motrin] 800 mg PO AC-TID Furosemide [Lasix] 20 mg PO DAILY Carvedilol [Coreg] 25 mg PO BID Discharge Medication List Albuterol Inhaler [Ventolin Hfa Inhaler] 2 puff INHALATION RT-Q4H PRN 12/21/20 [History] Atorvastatin [Lipitor] 80 mg PO DAILY 12/21/20 [History] Budesonide/Formoterol Fumarate [Symbicort 160-4.5 Mcg Inhaler] 2 puff INHALATION RT-BID 12/21/20 [History] Ipratropium-Albuterol Nebulize [Duoneb 0.5 mg-3 mg/3 ml Soln] 1.5 ml INHALATION RT-QID 12/21/20 [History] Valsartan [Diovan] 80 mg PO DAILY 12/21/20 [History] buPROPion SR [Wellbutrin SR] 150 mg PO BID 12/21/20 [History] Amoxicillin/Potassium Clav [Augmentin 875-125 Tablet] 1 tab PO Q12HR 10 Days #20 tab 12/31/20 [Rx] Aspirin 81 mg PO DAILY #30 tab 12/31/20 [Rx] Nitroglycerin Sl Tabs [Nitrostat] 0.4 mg SUBLINGUAL ONCE PRN #30 tab 12/31/20 [Rx] amLODIPine [Norvasc] 5 mg PO DAILY #30 tab 12/31/20 [Rx] carvediloL [Coreg*] 12.5 mg PO BID-W/MEALS #60 tab 12/31/20 [Rx] hydrALAZINE HCL [Apresoline] 50 mg PO BID #60 tab 12/31/20 [Rx] Follow up Appointment(s)/Referral(s): Samia Brownlee MD [STAFF PHYSICIAN] - 1 Week Live Brush DO [Doctor of Osteopathic Medicine] - 2 Weeks Nonstaff,Physician [Primary Care Provider] - 1-2 days Patient Instructions/Handouts: *Surgery [facility] - After Heart Catheterization - [employer] Consultant Instructions, Lung Abscess (DC) Discharge Disposition: HOME SELF-CARE
== END 2020-12-31 18:30 | disposition home or self-care (01) | DRG 871 ==
LOC: EC 08:08 → 3SCARD 08:09 → UNDOADMOB 08:09 → 2SICU 09:27 → 3SCARD 10:20
PROVIDERS: ADMIT Hospitalist; ATTEND Hospitalist
PROC: B2111ZZ Fluoroscopy of Multiple Coronary Arteries using Low Osmolar Contrast (ICD-10-PCS; 2020-12-21)
PROC: 4A023N7 Measurement of Cardiac Sampling and Pressure, Left Heart, Percutaneous Approach (ICD-10-PCS; principal; 2020-12-21 08:54)
DX: A41.9 Sepsis, unspecified organism (principal); J85.1 Abscess of lung with pneumonia; J96.01 Acute respiratory failure with hypoxia; I43 Cardiomyopathy in diseases classified elsewhere; J44.0 Chronic obstructive pulmonary disease with (acute) lower respiratory infection; E78.00 Pure hypercholesterolemia, unspecified; E78.5 Hyperlipidemia, unspecified; Z87.891 Personal history of nicotine dependence; F32.9 Major depressive disorder, single episode, unspecified; I25.10 Atherosclerotic heart disease of native coronary artery without angina pectoris; I71.2 Thoracic aortic aneurysm, without rupture; Z20.822 Contact with and (suspected) exposure to COVID-19; Z79.51 Long term (current) use of inhaled steroids; Z79.82 Long term (current) use of aspirin; Z79.899 Other long term (current) drug therapy; Z88.1 Allergy status to other antibiotic agents; Z88.5 Allergy status to narcotic agent; I10 Essential (primary) hypertension; I08.3 Combined rheumatic disorders of mitral, aortic and tricuspid valves
CPT/HCPCS: 32551; 36415; 71045; 71046; 71250; 71275; 74174; 76604; 76942; 78582; 80048; 80053; 80076; 80202; 80306; 82945; 83615; 83735; 83880; 84132; 84145; 84155; 84157; 84311; 84484; 85025; 85379; 85610; 85730; 87040; 87070; 87075; 87102; 87116; 87205; 87206; 87635; 88108; 88173; 88305; 88341; 88342; 89050; 93005; 93306; 93458; 94640; 94760; 96361; 96374; 96375; 99291